=== PATIENT | female | born 1955 | race Caucasian/White ===

== ENCOUNTER 2019-02-22 12:06 | Emergency (ER) | payer MEDICARE, BC, SELFPAY ==
[2019-02-22 12:06] VITALS: BP 145/86; PULSE 81; RESP 18; TEMP 36.6; O2SAT 99; BMI 21.2
[2019-02-22 13:50] LABS: Absolute Lymphocyte Count 1.26 X10^3/uL (0.83-4.51); Absolute Neutrophil Count 3.9 X10^3/uL (2.0-7.7); Basophil# 0.07 X10^3/uL; Basophil% 1.2 % (0-1); Eosinophil# 0.11 X10^3/uL; Eosinophils% 1.9 % (0-5); Hematocrit 36.4 % (37-47); Lymphocyte # 1.26 X10^3/ul (4.0); Lymphocyte % 21.3 % (19-41); Mean Corpuscular Hgb 30.4 pg (27.0-32.0); Mean Corpuscular Volume 92.2 fL (81-99); Mean Platelet Vol. 9.4 fl (6.2-12.0); Monocyte# 0.55 X10^3/uL; Monocyte% 9.3 % (0-10); NRBC Flagged by Analyzer 0 % (0-5); Neutrophil # 3.92 X10^3/uL (2.7-7.7); Neutrophil % 66.1 % (47-70); Platelet Count 278 K/mm3 (150-450); RBC Distribution Width CV 12.9 % (11.6-14.6); RBC Distribution Width SD 43.5 fl (35.1-43.9); Red Blood Count 3.95 M/mm3 (4.2-5.4); White Blood Count 5.9 K/mm3 (4.4-11.0)
[2019-02-22 14:01] LABS: Mucous, Urine 0 SEEN /hpf (<or=2+); Red Blood Cells-Urine 0 SEEN /hpf (0-5); Squamous Epithelial Cells - UA 0 SEEN /hpf (5-10); White Blood Cells 0 SEEN /hpf (0-5)
[2019-02-22 14:03] LABS: Color, Urine Yellow (Yellow); Glucose, Dipstick Normal (Normal); Ketone-Dipstick 15 mg/dl (Negative); Leukocyte Esterase-Dipstick Negative /ul (Negative); Nitrite-Dipstick Negative (Negative); Occult Blood-Urine Negative /ul (Negative); Protein-Dipstick Negative (Negative); Urine Bilirubin Dipstick Negative (Negative); Urine Clarity Sl. Cloudy (Clear); Urine Urobilinogen Normal (Normal)
[2019-02-22 14:04] LABS: Anion Gap 11 (5-15); BUN 14 mg/dL (7-18); BUN/Creat Ratio 18.5 RATIO (10-20); Chloride 106 mmol/L (98-107); Creatinine, Serum 0.76 mg/dL (0.55-1.02); EST Glomerular Filtration Rate 81 mL/min (>60); Est Glom Filt Rate - Afr Amer 98 mL/min (>60); Estimated Creatinine Clearance 55.49 ml/min; Glucose 76 mg/dL (74-106); Potassium 3.4 mmol/L (3.5-5.1); Sodium Level 141 mmol/L (136-145)
[2019-02-22 14:10] LABS: Bacteria RARE /hpf (None Seen)
--- NOTE | 2019-02-22 14:54 | ED.VISSUMM ---
- ER Visit Summary Date of Service: 02/22/19 Chief Complaint: Unable to urinate History of Present Illness: The patient is a [address] Green. She reports that 4 days ago she had a Lotus fundoplication by Dr. Ramires in [place]. She did not receive a catheter during this. She had frequent urination 3 days ago with normal volumes. She denies dysuria. States that she has been unable to urinate since 10:00 this morning. She denies abdominal pain. Physical Examination: Vitals: Stable. Afebrile. General: Well-nourished and well-developed. Head: Normocephalic atraumatic. Neck: Supple, no lymphadenopathy. No JVD. Nontender. Cardiovascular: Regular rate and rhythm. No murmurs. Respiratory: No respiratory distress. Clear to auscultation bilaterally. Abdominal: Soft, nontender, nondistended, normal bowel sounds. No guarding, rebound, or peritoneal signs. Obviously distended bladder. Back: Nontender. Extremities: Nontender, no edema. Skin: Normal color, no rash. Neurologic: Alert and oriented ?3. Cranial nerves II through XII are intact. Normal strength and sensation. Psych: Normal affect. Test Results: CBC shows hematocrit 36.4. Chem-7 shows a potassium 3.4. UA is normal. Emergency Department Course and Treatment: Patient had a Saenz catheter placed and had 2.5 L of urine return. She is resting much more comfortably. Treatment Plan: Patient will be discharged with her catheter in place and a leg bag. Instructed follow-up Dr. Mart in 3 to 5 days for another exam. Return to the emergency department for any worsening symptoms. Disposition: To home in improved and stable condition. Impression: 1. Urinary retention. 2. 4 days status post Lotus fundoplication. This note was generated with [employer]ation software. It may contain incorrect words, spelling, and punctuation that were not noted in review of the chart prior to signing ED Disposition - Plan for ED Patient: Disposition: Home or Assisted Living Instructions: URINARY RETENTION, Female Referrals: Juanjose Mart MD [STAFF PHYSICIAN] - 3-5 Days
[2019-02-22 15:31] VITALS: BP 156/83; PULSE 83; RESP 16; O2SAT 100; O2SAT 99
== END 2019-02-22 15:32 | disposition home or self-care (01) ==
LOC: ED 13:40
PROVIDERS: Emergency Provider Emergency Medicine
DX: R33.9 Retention of urine, unspecified (principal); Z98.890 Other specified postprocedural states; I10 Essential (primary) hypertension; Z79.899 Other long term (current) drug therapy
CPT/HCPCS: 51702; 80048; 81001; 85025; 87086; 99284

== ENCOUNTER → 2019-02-27 11:43 | Outpatient (CLI) | payer MEDICARE, BC, SELFPAY ==
[2019-02-22 12:06] VITALS: BMI 21.2
== END ==
PROVIDERS: Referring Provider Nurse Practitioner Adult Health; Visit Provider Nurse Practitioner Adult Health
DX: R33.9 Retention of urine, unspecified (principal)
CPT/HCPCS: 87077; 87086; 87088; 87186

== ENCOUNTER 2019-03-12 10:15 | Emergency (ER) | payer MEDICARE, BC, SELFPAY ==
[2019-03-12 10:15] VITALS: BP 110/60; PULSE 77; RESP 18; TEMP 36.4; O2SAT 100; BMI 21.6
--- NOTE | 2019-03-12 10:26 | RAD_ITS ---
STUDY: X-RAY CHEST REASON FOR EXAM: Female, 63 years old. Dizziness. TECHNIQUE: Single AP portable view of the chest. COMPARISON: None. FINDINGS: EKG electrodes are seen. The lungs are clear and expanded. There is no demonstrated pleural abnormality. Normal size heart. Normal mediastinum and ashia. Normal visualized pulmonary arteries. Normal visualized aortic arch and descending thoracic aorta. Normal visualized thoracic spine. Normal visualized ribs, clavicles, and shoulders. There is no demonstrated abnormality of the visualized soft tissue structures of the upper abdomen. RAD/Chest 1 View (Portable) IMPRESSION: Normal x-ray examination of the chest. Electronically Signed: Jaiden Shah, at 10:53 EDT , Service support ,
--- NOTE | 2019-03-12 10:26 | EKG12_ITS ---
Test Reason : SYNCOPE Blood Pressure : / mmHG Vent. Rate : 072 BPM Atrial Rate : 072 BPM P-R Int : 180 ms QRS Dur : 082 ms QT Int : 398 ms P-R-T Axes : 070 041 026 degrees QTc Int : 435 ms Normal sinus rhythm Normal ECG Confirmed by HAWK GO ([id number]), sound editor ANICETO DOUGHERTY ([id number]) on 03/18/2019 8:58:14 AM Referred By: Confirmed By:HAWK GO
[2019-03-12 10:40] LABS: Absolute Lymphocyte Count 1.11 X10^3/uL (0.83-4.51); Absolute Neutrophil Count 4.4 X10^3/uL (2.0-7.7); Basophil# 0.06 X10^3/uL; Eosinophil# 0.15 X10^3/uL; Eosinophils% 2.4 % (0-5); Hematocrit 33.8 % (37-47); Hemoglobin 11.5 g/dL (12.0-15.0); Lymphocyte # 1.11 X10^3/ul (4.0); Mean Corpuscular Volume 91.1 fL (81-99); Mean Platelet Vol. 9.2 fl (6.2-12.0); Monocyte# 0.44 X10^3/uL; Monocyte% 7.2 % (0-10); NRBC Flagged by Analyzer 0 % (0-5); Neutrophil # 4.37 X10^3/uL (2.7-7.7); Neutrophil % 71.1 % (47-70); Platelet Count 332 K/mm3 (150-450); RBC Distribution Width CV 12.7 % (11.6-14.6); RBC Distribution Width SD 42.2 fl (35.1-43.9); Red Blood Count 3.71 M/mm3 (4.2-5.4); White Blood Count 6.2 K/mm3 (4.4-11.0)
[2019-03-12 10:46] VITALS: O2SAT 95
[2019-03-12] MEDS: 0.9% Normal Saline 1,000 ML 1000 ML IV (10:47)
[2019-03-12] MEDS: Aspirin 81 MG TAB.CHEW 324 MG PO (10:47)
[2019-03-12 10:56] LABS: D-Dimer Quantitative (DVT/PE) 0.92 FEU/ug/m (0.27-0.49)
--- NOTE | 2019-03-12 11:00 | CT_ITS ---
STUDY: CTA CHEST REASON FOR EXAM: Female, 63 years old. Dizziness. Syncope. Recent surgery. RADIATION DOSAGE (If Supplied By Facility): CTDIvol = ( 2.95 ) mGy, DLP = ( 103.15 ) mGycm TECHNIQUE: The examination was performed with the intravenous administration of IV 75mL [id number]-370 75. Post-processing of the angiographic images was performed, with multiplanar reformation and 3D reconstruction. Individualized dose optimization techniques were used for this CT. COMPARISON: March 12 2019. FINDINGS: HEART: Coronary artery disease. Normal heart size. Trace fluid within the pericardial sleeve. AORTA/GREAT VESSELS: Vascular calcifications. No aneurysm. No dissection. Adequate contrast enhancement. PULMONARY ARTERIES: Adequate contrast enhancement. No hypertension. No pulmonary embolism. LUNGS/AIRWAYS: No focal patchy airspace opacities. No suspicious lung nodules. Minimal scar/atelectasis. No lung mass. Central airways patent. Increased AP diameter suggests element of COPD. PLEURA: No pneumothorax. No pleural effusion. MEDIASTINUM/THYROID: Normal thyroid. No pathologically enlarged lymph nodes. No pneumomediastinum. SOFT TISSUES: Minimal body wall edema. No acute process. OSSEOUS STRUCTURES: Mild degenerative changes. No acute process. UPPER ABDOMEN/ESOPHAGUS: Hiatal hernia. Calcification/post surgical changes at the stomach. Hepatic steatosis. No acute process. CT/CTA Chest W/WO Contrast IMPRESSION: No pulmonary embolism, aortic aneurysm or aortic dissection No pneumonia, pleural effusion or pneumothorax Mild COPD/hyperexpansion Electronically Signed: Sd Valenzuela DO at 12:01 EDT Tel , Service support ,
[2019-03-12 11:01] LABS: Anion Gap 8 (5-15); BUN 7 mg/dL (7-18); BUN/Creat Ratio 6.6 RATIO (10-20); Calcium,Total 8.9 mg/dL (8.5-10.1); Chloride 101 mmol/L (98-107); Creatinine, Serum 1.06 mg/dL (0.55-1.02); EST Glomerular Filtration Rate 55 mL/min (>60); Est Glom Filt Rate - Afr Amer 67 mL/min (>60); Glucose 93 mg/dL (74-106); Potassium 3.9 mmol/L (3.5-5.1); Sodium Level 135 mmol/L (136-145)
[2019-03-12 11:15] VITALS: BP 104/62; PULSE 76; RESP 24; O2SAT 100
[2019-03-12 12:00] VITALS: BP 103/67; PULSE 74; RESP 17; O2SAT 100
--- NOTE | 2019-03-12 12:42 | ED.VIS.GEN ---
History of Present Illness Chief Complaint: Syncope Past Medical History - Allergies and Home Meds Allergies/Adverse Reactions: Allergies Penicillins [PCN] Allergy (Verified 03/12/19 10:18) Rash Primary Care Physician: True Green MD [Primary Care Provider] - Smoking Status: Never smoker Physical Exam Vital Signs/Narrative: Vital Signs Temp Pulse Resp BP Pulse Ox 03/12/19 12:00 74 17 103/67 100 03/12/19 11:15 76 24 H 104/62 100 03/12/19 10:46 95 03/12/19 10:15 97.6 F L 77 18 110/60 100 Diagnostic/Tx/Re-eval - Rhythm Strip Rhythm Strip: Sinus Rhythm Rate: 72 Ectopy: None - EKG Initial EKG Interpretation: Sinus Rhythm, No Acute Injury Pattern, - - KS interval. Normal QTC. Interpreted by emergency doctor - Medical Decision Making Patient is a normal work-up including PE study. She appears well, she has had decreased p.o. intake recently she had slightly dry mucous membranes. I hydrated her she improved I will discharge in stable condition. ED Disposition - Plan for ED Patient: Disposition: Home or Assisted Living Diagnosis: Dehydration, Syncope Instructions: SYNCOPE, Unk Cause, Dehydration Referrals: True Green MD [Primary Care Provider] -
[2019-03-12 13:24] VITALS: BP 109/64; PULSE 79; PULSE 82; RESP 16; O2SAT 100
--- NOTE | 2019-03-12 13:25 | ED.RN ---
REVIEWED D/C INSTRUCTIONS, FOLLOW UP CARE, AND S/S THAT WOULD WARRANT A RETURN TO THE ED WITH PT. PT VERBALIZED AN UNDERSTANDING AND DENIES FURTHER QUESTIONS FOR THIS RN. PT SKIN P/W/D, RESP EVEN AND UNLABORED, PT A&O X 3, NO DISTRESS NOTED. PT AMBULATED OUT OF ED, GAIT STEADY.
== END 2019-03-12 13:26 | disposition home or self-care (01) ==
PROVIDERS: Emergency Provider Emergency Medicine
DX: E86.0 Dehydration (principal); R55 Syncope and collapse
CPT/HCPCS: 71045; 71275; 80048; 84484; 85025; 85379; 93005; 96360; 99285; J7030; Q9967

== ENCOUNTER → 2020-09-07 15:16 | Outpatient (CLI) | payer MEDICARE, BC, SELFPAY ==
--- NOTE | 2020-09-07 15:20 | RAD_ITS ---
STUDY: X-RAY - PELVIS AND BILATERAL HIPS REASON FOR EXAM: Female, 65 years old. Hip pain. TECHNIQUE: AP view of the pelvis.? 2 views of the right hip, and 2 views of the left hip were obtained. COMPARISON: None. FINDINGS: There is a non-specific bowel gas pattern. Phleboliths. Generalized osteopenia. Normal bilateral iliac wings, sacroiliac joints and visualized sacrum. Normal bilateral superior and inferior pubic rami. Normal pubic symphysis. Normal bilateral ischial tuberosities. Mild arthrosis of both hips. RAD/Hips B/L min 2 views w/ Pelvis IMPRESSION: Osteopenia with mild arthrosis of both hips. Electronically Signed: Cachorro Fisher MD at 12:04 EDT , Service support ,
== END ==
PROVIDERS: PCP Family Medicine; Referring Provider Family Medicine; Visit Provider Family Medicine
DX: M16.0 Bilateral primary osteoarthritis of hip (principal); M85.89 Other specified disorders of bone density and structure, multiple sites
CPT/HCPCS: 73521

== ENCOUNTER → 2020-09-08 08:20 | Outpatient (CLI) | payer MEDICARE, BC, SELFPAY ==
[2020-09-08 10:31] LABS: Vitamin D,25 Hydroxy 11.2 ng/mL
[2020-09-08 10:53] LABS: Anion Gap 7 (5-15); BUN 17 mg/dL (7-18); BUN/Creat Ratio 16.5 RATIO (10-20); Calcium,Total 9.1 mg/dL (8.5-10.1); Chloride 112 mmol/L (98-107); Cholesterol 243 mg/dL (200); Creatinine, Serum 1.03 mg/dL (0.55-1.02); EST Glomerular Filtration Rate 57 mL/min (>60); Est Glom Filt Rate - Afr Amer 69 mL/min (>60); Glucose 88 mg/dL (74-106); High Density Lipoprotein 85 mg/dL; Potassium 3.9 mmol/L (3.5-5.1); Sodium Level 143 mmol/L (136-145); Triglycerides 91 mg/dL; Very Low Density Lipoprotein 18 mg/dL (5-40)
== END ==
PROVIDERS: PCP Family Medicine; Referring Provider Family Medicine; Visit Provider Family Medicine
DX: I10 Essential (primary) hypertension (principal); Z86.39 Personal history of other endocrine, nutritional and metabolic disease
CPT/HCPCS: 36415; 80048; 80061; 82306

== ENCOUNTER → 2021-03-04 | Outpatient (CLI) | payer MEDICARE, BC, SELFPAY | END | disposition home or self-care (01) | PROVIDERS: PCP Family Medicine; Referring Provider Family Medicine; Visit Provider Family Medicine | DX: Z20.822 Contact with and (suspected) exposure to COVID-19 (principal) | CPT/HCPCS: 87635; U0005; U0003 ==

== ENCOUNTER → 2021-09-28 | Outpatient (CLI) | payer MEDICARE, BC, SELFPAY ==
[2021-09-28 10:12] LABS: Vitamin D,25 Hydroxy 38.4 ng/mL
[2021-09-28 10:15] LABS: Anion Gap 5 (5-15); BUN 20 mg/dL (7-18); Calcium,Total 9.4 mg/dL (8.5-10.1); Chloride 107 mmol/L (98-107); Cholesterol 243 mg/dL (200); Creatinine, Serum 1.11 mg/dL (0.55-1.02); EST Glomerular Filtration Rate 52 mL/min (>60); Est Glom Filt Rate - Afr Amer 63 mL/min (>60); Glucose 94 mg/dL (74-106); High Density Lipoprotein 83 mg/dL; Potassium 3.4 mmol/L (3.5-5.1); Sodium Level 140 mmol/L (136-145); Triglycerides 88 mg/dL; Very Low Density Lipoprotein 18 mg/dL (5-40)
== END | disposition home or self-care (01) ==
LOC: MFPLAB 08:04
PROVIDERS: PCP Family Medicine; Visit Provider Family Medicine
DX: I10 Essential (primary) hypertension (principal); E55.9 Vitamin D deficiency, unspecified
CPT/HCPCS: 36415; 80048; 80061; 82306

== ENCOUNTER → 2021-10-26 | Outpatient (CLI) | payer MEDICARE, BC, SELFPAY ==
--- NOTE | 2021-10-26 14:00 | BI_ITS ---
MAMMOGRAPHY - BILATERAL SCREENING REASON FOR EXAM: Female, 66 years old. Routine annual screening examination. PERTINENT HISTORY: Sister with breast cancer. TECHNIQUE: Digital bilateral breast brandt (3D mammographic acquisition) in the CC and MLO projections. 2-D mediolateral oblique (MLO) and craniocaudad (CC) views of both breasts were obtained. CAD: Full Field Digital Mammography with Computer Added Detection was performed. COMPARISON: Comparison is made with prior examination dated 02/09/2018. FINDINGS: Breast Composition: The breasts are heterogeneously dense, which may obscure small masses. There are no dominant masses or suspicious calcifications. No other significant abnormalities are identified. There has been no significant change since the prior study. BI/SCRN MAMM (CAD)W/BRANDT BILAT IMPRESSION: Stable bilateral screening mammogram. Yearly follow-up mammogram recommended. (A) ASSESSMENT CATEGORY: BIRADS Category 1: Negative. A letter regarding these results will be sent to the patient by the facility within 30 days. Approximately 10% of breast cancers are not detected by mammography. A normal mammogram should not delay biopsy of a clinically suspicious abnormality. [id number] Electronically Signed: Jaiden Shah MD at 15:10 EDT ,
--- NOTE | 2021-10-26 14:16 | BD_ITS ---
STUDY: DUAL ENERGY X-RAY ABSORPTIOMETRY / DXA REASON FOR EXAM: Female, 66 years old. Z780. Patient is postmenopausal. TECHNIQUE: Bone Mineral Density (BMD) measurements of lumbar spine and bilateral hips were obtained. COMPARISON: None. FINDINGS: Lumbar Spine (L1-L4): g/cm2 (0.903) / T-score (-1.3) / Z-score (0.7) Findings are suggestive of osteopenia with a low fracture risk. Left Femur Total: g/cm2 (0.807) / T-score (-1.1) / Z-score (0.3) Left Femoral Neck: g/cm2 (0.625) / T-score (-2.0) / Z-score (-0.3) Right Femur Total: g/cm2 (0.813) / T-score (-1.1) / Z-score (0.3) Right Femoral Neck: g/cm2 (0.660) / T-score (-1.7) / Z-score (0.0) BD/Dexa Bone Density Study IMPRESSION: The patient is considered osteopenic as outlined below according to World Martinez Organization (WHO) criteria with a moderate fracture risk. Reference Information: The T-score is the number of standard deviations above or below the standard which is normal for young adults at their peak bone mineral density. The World Health Organization (WHO) interprets the T-scores as follows: Above -1 Normal bone density Between -1 and -2.5 Osteopenia Equal to / or below -2.5 Osteoporosis As a practical clinical guideline, osteopenia may be graded as follows: Mild -1 through -1.5 Moderate -1.6 through -2.0 Severe -2.1 through -2.4 The Z-score is the number of standard deviations above or below age-matched controls. A Z-score of less than -1.5 would be considered abnormal. References: 1. NIH Osteoporosis and Related Bone Diseases www osteo.org 2. International Society for Clinical Densitometry www iscd.org 3. National Osteoporosis Foundation www nof.org Electronically Signed: Jaiden Shha MD at 15:30 EDT ,
== END | disposition home or self-care (01) ==
LOC: OPBD 13:57
PROVIDERS: PCP Family Medicine; Referring Provider Family Medicine; Visit Provider Family Medicine
DX: Z13.820 Encounter for screening for osteoporosis (principal); Z78.0 Asymptomatic menopausal state; Z12.31 Encounter for screening mammogram for malignant neoplasm of breast; Z80.3 Family history of malignant neoplasm of breast
CPT/HCPCS: 77063; 77067; 77080

== ENCOUNTER → 2022-03-25 | Outpatient (CLI) | payer MEDICARE, BC, SELFPAY ==
[2022-03-25 10:18] LABS: Anion Gap 5 (5-15); BUN 21 mg/dL (7-18); BUN/Creat Ratio 20.8 RATIO (10-20); Chloride 110 mmol/L (98-107); Cholesterol 155 mg/dL (200); Creatinine, Serum 1.01 mg/dL (0.55-1.02); EST Glomerular Filtration Rate 58 mL/min (>60); Est Glom Filt Rate - Afr Amer 70 mL/min (>60); Glucose 87 mg/dL (74-106); High Density Lipoprotein 83 mg/dL; Potassium 3.7 mmol/L (3.5-5.1); Sodium Level 142 mmol/L (136-145); Triglycerides 58 mg/dL; Very Low Density Lipoprotein 12 mg/dL (5-40)
== END | disposition home or self-care (01) ==
LOC: MFPLAB 08:13
PROVIDERS: PCP Family Medicine; Referring Provider Family Medicine; Visit Provider Family Medicine
DX: I10 Essential (primary) hypertension (principal)
CPT/HCPCS: 36415; 80048; 80061

== ENCOUNTER → 2022-10-06 | Outpatient (CLI) | payer MEDICARE, BC, SELFPAY ==
[2022-10-06 10:29] LABS: Anion Gap 4 (5-15); BUN 19 mg/dL (7-18); BUN/Creat Ratio 19.5 RATIO (10-20); Calcium,Total 9.5 mg/dL (8.5-10.1); Chloride 108 mmol/L (98-107); Cholesterol 186 mg/dL (200); Creatinine, Serum 0.97 mg/dL (0.55-1.02); EST Glomerular Filtration Rate 60 mL/min (>60); Est Glom Filt Rate - Afr Amer 73 mL/min (>60); Glucose 91 mg/dL (74-106); High Density Lipoprotein 93 mg/dL; Potassium 3.6 mmol/L (3.5-5.1); Sodium Level 141 mmol/L (136-145); Triglycerides 86 mg/dL; Very Low Density Lipoprotein 17 mg/dL (5-40)
== END | disposition home or self-care (01) ==
LOC: MFPLAB 08:06
PROVIDERS: PCP Family Medicine; Visit Provider Family Medicine
DX: Z00.00 Encounter for general adult medical examination without abnormal findings (principal); E55.9 Vitamin D deficiency, unspecified
CPT/HCPCS: 36415; 80048; 80061; 82306

== ENCOUNTER 2022-11-09 06:43 | Day surgery (SDC) | payer MEDICARE, BC, SELFPAY ==
--- NOTE | 2022-11-09 07:20 | HP.PCM_ITS ---
[facility] - General General Date of Service: 11/09/22 HPI Narrative FRANK LUONG, is a 67 F who presents for screening colonoscopy. Patient never had previous colonoscopy. Patient denies any family history of colon cancer. Patient has bowel movements daily denies any blood. Patient denies any chronic abdominal pain/nausea/vomiting/reflux. [facility] Medical History (Updated 11/04/22 @ 14:33 by Lesly Castellanos) Arthritis Asthma Blackout Easy bruising History of hiatal hernia History of pain when walking History of stress test HTN (hypertension) Hyperlipidemia Low iron Migraine Non-smoker Post-menopausal Vitamin D deficiency Wears dentures Wears glasses Home Medications Losartan/Hydrochlorothiazide [Hyzaar 50-12.5 Tablet] 1 tab PO DAILY 10/04/14 [History Last Taken Unknown] budesonide-formoterol HFA 80 mcg-4.5 mcg/actuation aerosol inhaler (Symbicort) 2 puff inhalation BID PRN PRN Sob &/Or Wheezing 10/04/14 [History Last Taken Unknown] topiramate 50 mg tablet 100 mg PO QHS 03/12/19 [History Last Taken Unknown] cholecalciferol (vitamin D3) 50 mcg (2,000 unit) capsule 50 mcg PO BID 10/26/22 [History Last Taken Unknown] rosuvastatin 5 mg tablet 5 mg PO DAILY 10/26/22 [History Last Taken Unknown] Allergy/AdvReac Type Severity Reaction Status Date / Time Penicillins [PCN] Allergy Rash Verified 11/04/22 14:25 Family History (Updated 10/26/22 @ 10:47 by Marva Archuleta) Father Cancer Sister Hypertension Cancer Diabetes Surgical History (Updated 11/04/22 @ 14:33 by Lesly Castellanos) History of Lotus fundoplication Hx of esophagogastroduodenoscopy Social History (Updated 10/26/22 @ 10:48 by Marva Archuleta) household members: spouse current occupational status: retired Smoking Status: Never smoker alcohol intake: never Past Medical/Surgical History Planned Operation Planned Operative Procedure/s: CSCOPE OA Previous Hospitalizations/Surgeries HX Hospitalizations: No Any Problems With Anesthesia: No You/Your Family Experience Fever (Hyperthermia) With Anes: No Cholinesterase deficiency: No Cardiovascular Hx Heart Attack: No Hx Hypertension: Yes (CONTROLLED WITH MED) Respiratory Hx Chronic Obstructive Pulmonary Disease (COPD): No Hx Asthma: Yes Hx Sleep Apnea: No Hx Respiratory Tract Infection/Cold (presently): No Do You Snore Loudly (louder than talking or can be heard): No Do You Often Feel Tired/ Fatigued/ Sleepy Dring Daytime?: No Has Anyone Observed You Stop Breathing During Sleep?: No Result (for STOP score): Negative Smoking Status: Never smoker Neurological Hx Seizures: No Does patient have nerve stimulator: No Blood Disorder Hx High Cholesterol: Yes Reproduction : No Endocrine Hx Diabetes: No Allergies Penicillins [PCN] Allergy (Verified 11/04/22 14:25) Rash Discharge Is Pt Admitted From a Fdc, or a Longterm: No After D/C, Where Do you Plan to Go: Return Home Physical Exam Const alert, oriented x3 and no apparent distress HEENT normocephalic and head/scalp atraumatic Resp normal respiratory effort Cardio regular rate GI soft to palpation and non-tender; Negative for non-distended Palpation: Negative for guarding Extremity no clubbing, cyanosis or edema Neuro CN's II-XII intact bilaterally Psych mental status grossly normal Assessment & Plan Assessment/Plan (1) Encounter for screening for malignant neoplasm of colon: Surgery Risks - Colonoscopy I discussed with the patient the risks of the procedure: Yes Risks Include but are not Limited To: Risks include but are not limited to: Bleeding, perforation requiring further surgery, inability to complete colonoscopy requiring barium enema.
[2022-11-09 08:43] VITALS: BP 100/52; BP 141/67; PULSE 74; RESP 16; TEMP 36.7; O2SAT 98
[2022-11-09 08:45] VITALS: BP 141/67; BP 92/64; PULSE 75; RESP 16; O2SAT 98
--- NOTE | 2022-11-09 08:46 | OP.COLON_ITS ---
Patient Name: Maria Elena Alan Procedure Date: 11/09/2022 8:02 AM Date of : 1955 Age: 67 Procedure: Colonoscopy Indications: Screening for colorectal malignant neoplasm Providers: Yuliya Medina MD Medicines: Monitored Anesthesia Care Patient Profile: This is a 67 year old female. Last Colonoscopy: none. The patient's first colonoscopy is today. Complications: No immediate complications. Procedure: Pre-Anesthesia Assessment: - Prior to the procedure, a History and Physical was performed, and patient medications and allergies were reviewed. The patient's tolerance of previous anesthesia was also reviewed. The risks and benefits of the procedure and the sedation options and risks were discussed with the patient. All questions were answered, and informed consent was obtained. Prior Anticoagulants: The patient has taken no previous anticoagulant or antiplatelet agents. ASA Grade Assessment: Per anesthesia. After reviewing the risks and benefits, the patient was deemed in satisfactory condition to undergo the procedure. After I obtained informed consent, the scope was passed under direct vision. Throughout the procedure, the patient's blood pressure, pulse, and oxygen saturations were monitored continuously. The pediatric colonoscope was introduced through the anus and advanced to the cecum, identified by the appendiceal orifice, ileocecal valve and palpation. The colonoscopy was technically difficult and complex due to a tortuous colon. The patient tolerated the procedure well. The quality of the bowel preparation was good. Scope In: 8:14:05 AM Scope Withdrawal Time 0 hours 8 minutes 57 seconds Scope Out: 8:37:00 AM Total Procedure Duration Time 0 hours 22 minutes 55 seconds Findings: The perianal and digital rectal examinations were normal. Multiple small-mouthed diverticula were found in the sigmoid colon. The exam was otherwise without abnormality on direct and retroflexion views. Impression: - Diverticulosis in the sigmoid colon. - The examination was otherwise normal on direct and retroflexion views. - No specimens collected. Recommendation: - Discharge patient to home. - High fiber diet. - Continue present medications. - Repeat colonoscopy in 10 years for screening purposes. Procedure Code(s): --- Professional --- G0121, PT, Colorectal cancer screening; colonoscopy on individual not meeting criteria for high risk Diagnosis Code(s): --- Professional --- Z12.11, Encounter for screening for malignant neoplasm of colon K57.30, Diverticulosis of large intestine without perforation or abscess without bleeding CPT copyright 2017 [employer]. All rights reserved. The codes documented in this report are preliminary and upon medical records coder review may be revised to meet current compliance requirements. MD Yuliya Bledsoe MD 11/09/2022 8:46:16 AM This report has been signed electronically. Number of Addenda: 0 Note Initiated On: 11/09/2022 8:02 AM
--- NOTE | 2022-11-09 08:47 | OP.CCLET_ITS ---
11/09/2022 Christiano Macedo MD [address] [id number] Re : Colonoscopy procedure for Maria Elena Alan Dear Dr. Macedo This procedure was performed on Wednesday, November 09, 2022. My impressions and recommendations are as follows: Impressions : - Diverticulosis in the sigmoid colon. - The examination was otherwise normal on direct and retroflexion views. - No specimens collected. Recommendations : - Discharge patient to home. - High fiber diet. - Continue present medications. - Repeat colonoscopy in 10 years for screening purposes. My findings are described in the full procedure note, which is enclosed. If I can be of further assistance, please feel free to contact me at Doctor phone number(s): , Work: . Sincerely, MD Yuliya Bledsoe MD 11/09/2022 8:46:16 AM This report has been signed electronically.
[2022-11-09 08:50] VITALS: BP 100/64; BP 141/67; PULSE 757; RESP 16; O2SAT 99
[2022-11-09 08:55] VITALS: BP 101/60; BP 141/67; PULSE 80; RESP 16; O2SAT 98
[2022-11-09 09:01] VITALS: BP 104/70; BP 141/67; PULSE 81; RESP 16; TEMP 36.7; O2SAT 97
[2022-11-09 09:11] VITALS: BP 141/67
== END 2022-11-09 09:24 | disposition home or self-care (01) ==
LOC: EN 07:32 → AC 07:36
PROVIDERS: PCP Family Medicine; Referring Provider Family Medicine; Visit Provider Surgery
PROC: 0DJD8ZZ Inspection of Lower Intestinal Tract, Via Natural or Artificial Opening Endoscopic (ICD-10-PCS; CPT 45378; principal; 2022-11-09 08:10)
DX: Z12.11 Encounter for screening for malignant neoplasm of colon (principal); K57.30 Diverticulosis of large intestine without perforation or abscess without bleeding; I10 Essential (primary) hypertension; E78.5 Hyperlipidemia, unspecified; E55.9 Vitamin D deficiency, unspecified; Z79.899 Other long term (current) drug therapy
CPT/HCPCS: G0121; J7120; J2405

== ENCOUNTER → 2023-03-24 | Outpatient (CLI) | payer MEDICARE, OTHER, SELFPAY ==
--- NOTE | 2023-03-24 14:18 | RAD_ITS ---
STUDY: X-RAY - PELVIS AND RIGHT HIP REASON FOR EXAM: Female, 67 years old. PAIN TECHNIQUE: 3 views of the pelvis and hip. COMPARISON: 09/07/2020 FINDINGS: There is a non-specific bowel gas pattern. Normal visualized soft tissue structures. Normal bilateral iliac wings, sacroiliac joints and visualized sacrum. Normal bilateral superior and inferior pubic rami. Normal pubic symphysis. Normal bilateral ischial tuberosities. Normal visualized femoral head. Normal acetabulum. Normal hip joint. RAD/HIP, UNI W/ Pelvis 2-3 Views IMPRESSION: Normal x-ray examination of the pelvis and hip. Electronically Signed: Braydon Wong MD at 23:59 EST ,
[2023-03-24 15:41] LABS: Anion Gap 2 (5-15); BUN 17 mg/dL (7-18); BUN/Creat Ratio 16.2 RATIO (10-20); Calcium,Total 9.2 mg/dL (8.5-10.1); Chloride 102 mmol/L (98-107); Cholesterol 189 mg/dL (200); Creatinine, Serum 1.05 mg/dL (0.55-1.02); EST Glomerular Filtration Rate 55 mL/min (>60); Est Glom Filt Rate - Afr Amer 67 mL/min (>60); Glucose 121 mg/dL (74-106); High Density Lipoprotein 94 mg/dL; Potassium 2.9 mmol/L (3.5-5.1); Sodium Level 134 mmol/L (136-145); Triglycerides 80 mg/dL; Very Low Density Lipoprotein 16 mg/dL (5-40)
== END | disposition home or self-care (01) ==
LOC: MTLAB 14:16
PROVIDERS: PCP Family Medicine; Referring Provider Family Medicine; Visit Provider Family Medicine
DX: M25.551 Pain in right hip (principal); E78.5 Hyperlipidemia, unspecified
CPT/HCPCS: 36415; 73502; 80048; 80061

== ENCOUNTER → 2023-05-01 | Outpatient (CLI) | payer MEDICARE, OTHER, SELFPAY ==
[2023-05-01 12:41] LABS: Anion Gap 8 (5-15); BUN 18 mg/dL (7-18); BUN/Creat Ratio 17.5 RATIO (10-20); Calcium,Total 8.9 mg/dL (8.5-10.1); Chloride 105 mmol/L (98-107); Creatinine, Serum 1.03 mg/dL (0.55-1.02); EST Glomerular Filtration Rate 56 mL/min (>60); Est Glom Filt Rate - Afr Amer 68 mL/min (>60); Glucose 96 mg/dL (74-106); Potassium 3.8 mmol/L (3.5-5.1); Sodium Level 140 mmol/L (136-145)
== END | disposition home or self-care (01) ==
LOC: MFPLAB 10:24
PROVIDERS: PCP Family Medicine; Visit Provider Family Medicine
DX: E78.5 Hyperlipidemia, unspecified (principal)
CPT/HCPCS: 36415; 80048

== ENCOUNTER → 2023-10-11 | Outpatient (CLI) | payer MEDICARE, OTHER, SELFPAY ==
[2023-10-11 10:48] LABS: Anion Gap 4 (5-15); BUN 17 mg/dL (7-18); Calcium,Total 9.4 mg/dL (8.5-10.1); Chloride 105 mmol/L (98-107); Cholesterol 194 mg/dL (200); EST Glomerular Filtration Rate 58 mL/min (>60); Est Glom Filt Rate - Afr Amer 71 mL/min (>60); Glucose 98 mg/dL (74-106); High Density Lipoprotein 89 mg/dL; Potassium 3.8 mmol/L (3.5-5.1); Sodium Level 137 mmol/L (136-145); Triglycerides 82 mg/dL; Very Low Density Lipoprotein 16 mg/dL (5-40)
== END | disposition home or self-care (01) ==
LOC: MFPLAB 08:11
PROVIDERS: PCP Family Medicine; Visit Provider Family Medicine
DX: Z00.00 Encounter for general adult medical examination without abnormal findings (principal)
CPT/HCPCS: 36415; 80048; 80061

== ENCOUNTER → 2024-01-29 | Outpatient (CLI) | payer MEDICARE, OTHER, SELFPAY ==
--- NOTE | 2024-01-29 07:39 | RAD_ITS ---
STUDY: X-RAY - ESOPHAGUS (BARIUM SWALLOW) WITH FLUOROSCOPY REASON FOR EXAM: Female, 68 years old. GERD, DYSPHAGIA *12MM TAB. The patient is status post Lotus fundoplication. TECHNIQUE: 32 fluoroscopic view(s) of the esophagus were obtained following swallowing of barium. FLUOROSCOPY TIME (if supplied): (23 seconds) minutes/seconds. 1.4 mGy. COMPARISON: None. FINDINGS: There is no demonstrated esophageal foreign body. There is no demonstrated stricture or mucosal abnormality. Normal gastroesophageal junction, without a demonstrated hiatal hernia. Evidence of prior Lotus fundoplication. The patient ingested a 12 mm tablet of barium without any difficulty. Normal visualized aortic arch and descending thoracic aorta. Normal visualized pulmonary parenchyma. Normal visualized osseous structures of the thorax. RAD/Esophagus Dual Contrast IMPRESSION: Status post Lotus fundoplication. The patient ingested a 12 mm tablet of barium without any difficulty. No gastroesophageal reflux is seen. Electronically Signed: Jaiden Shah MD at 15:11 EDT ,
== END | disposition home or self-care (01) ==
LOC: RAD 07:37
PROVIDERS: PCP Family Medicine; Referring Provider Internal Medicine Gastroenterology; Visit Provider Internal Medicine Gastroenterology
DX: K21.9 Gastro-esophageal reflux disease without esophagitis (principal); R13.10 Dysphagia, unspecified
CPT/HCPCS: 74221

== ENCOUNTER → 2024-07-08 | Outpatient (CLI) | payer MEDICARE, OTHER, SELFPAY ==
[2024-07-09 20:08] LABS: H. PYLORI STOOL AG Positive (Negative)
== END | disposition home or self-care (01) ==
PROVIDERS: PCP Family Medicine; Referring Provider Internal Medicine Gastroenterology; Visit Provider Internal Medicine Gastroenterology
DX: K29.70 Gastritis, unspecified, without bleeding (principal)
CPT/HCPCS: 87338

== ENCOUNTER → 2024-10-10 | Outpatient (CLI) | payer MEDICARE, OTHER, SELFPAY ==
[2024-10-10 11:05] LABS: Anion Gap 12 (5-15); BUN 14 mg/dL (4-19); BUN/Creat Ratio 15.1 RATIO (10-20); Calcium,Total 9.5 mg/dL (7.6-11.0); Carbon Dioxide 22.7 mmol/L (21.0-32.0); Chloride 107 mmol/L (98-108); Cholesterol 220 mg/dL (<=200); Creatinine, Serum 0.92 mg/dL (0.70-1.20); EST Glomerular Filtration Rate 67 (>60); Glucose 96 mg/dL (70-99); High Density Lipoprotein 91 mg/dL; Low Density Lipoprotein Calc. 114 mg/dL; Potassium 4.2 mmol/L (3.3-5.1); Sodium Level 141 mmol/L (133-145); Triglycerides 75 mg/dL; Very Low Density Lipoprotein 15 mg/dL (5-40); cholesterol:hdl ratio screen 2.43
== END | disposition home or self-care (01) ==
LOC: MFPLAB 09:11
PROVIDERS: PCP Family Medicine; Referring Provider Family Medicine; Visit Provider Family Medicine
DX: Z00.00 Encounter for general adult medical examination without abnormal findings (principal)
CPT/HCPCS: 36415; 80048; 80061

== ENCOUNTER → 2024-11-07 | Outpatient (CLI) | payer MEDICARE, OTHER, SELFPAY ==
--- NOTE | 2024-11-07 14:50 | BD_ITS ---
PROCEDURE: DEXA BONE DENSITY STUDY 11/07/2024 REASON FOR EXAM: F, age 69 y/o . Postmenopausal. TECHNIQUE: DEXA BONE DENSITY STUDY COMPARISON: Prior study dated October 26, 2021. FINDINGS: BMD and T-SCORES Lumbar spine: 0.895 g/cm2, T-score -1.4 Levels: L1 through L4 Change from prior: Loss of 0.8%. Left femoral neck: 0.646 g/cm2, T-score -1.8 Femoral neck comparison data not recommended for monitoring change. Left total hip: 0.796 g/cm2, T-score -1.2 Change from prior: Loss of 1.4%. Right femoral neck: 0.621 g/cm2, T-score -2.1 Femoral neck comparison data not recommended for monitoring change. Right total hip: 0.784 g/cm2, T-score -1.3 Change from prior: Loss of 3.6%. The World Health Organization has defined the following categories based on bone density: Normal bone density: T-score equal to or greater than -1.0 Osteopenia: T-score between -1.0 and -2.5 Osteoporosis: T-score equal to or less than -2.5 The patient does meet the pharmacological treatment recommendations for prevention of osteoporosis. BD/Dexa Bone Density Study IMPRESSION: OSTEOPENIA. Recommend follow-up as clinically warranted. Reading Location: [id number]
--- NOTE | 2024-11-07 14:50 | BI_ITS ---
EXAM: SCRN MAMM (CAD)W/BRANDT BILAT DATE: 11/07/2024 CLINICAL HISTORY: F, Age 69 y/o , SCREENING Sister with breast cancer. TECHNIQUE: SCRN MAMM (CAD)W/BRANDT BILAT COMPARISON: Prior exam(s) dated October 26, 2021.. FINDINGS: TISSUE DENSITY: The breasts are heterogeneously dense, which may obscure small masses. Bilateral Breast Mammographic Findings: No significant masses, calcifications or other abnormalities are identified. There is retraction of the right areolar complex. Correlation with ultrasound is recommended. BI/SCRN MAMM (CAD)W/BRANDT BILAT IMPRESSION: Retraction of the right areolar complex. Correlation with ultrasound recommend ed. OVERALL FINAL ASSESSMENT BI-RADS 0: INCOMPLETE - NEED ADDITIONAL IMAGING EVALUATION. RECOMMENDATION: Ultrasound Recommended A letter with findings and recommendations will be mailed to the patient. Reading Location: [id number]
== END | disposition home or self-care (01) ==
LOC: OPBD 14:48
PROVIDERS: PCP Family Medicine; Referring Provider Family Medicine; Visit Provider Family Medicine
DX: Z12.31 Encounter for screening mammogram for malignant neoplasm of breast (principal); Z78.0 Asymptomatic menopausal state
CPT/HCPCS: 77063; 77067; 77080

== ENCOUNTER → 2024-11-14 | Outpatient (CLI) | payer MEDICARE, OTHER, SELFPAY ==
--- NOTE | 2024-11-14 08:18 | US_ITS ---
PROCEDURE: BREAST LIMITED UNILATERAL 11/14/2024 REASON FOR EXAM: 69-year-old female presents for right nipple retraction seen on the examination of 11/07/2024. Family history of breast cancer in sister in her 40s and a niece in her 30s. COMPARISON: Mammograms 11/07/2024 and 10/26/2021. TECHNIQUE: BREAST LIMITED UNILATERAL FINDINGS: Ultrasound performed of the retroareolar right breast demonstrates no suspicious sonographic findings. There is normal breast tissue. There is no solid mass or abnormal cystic elements in the retroareolar region. US/Breast Limited Unilateral IMPRESSION: There are no suspicious sonographic findings to account for the patient's right nipple retraction. Clinical management is recommended. BI-RADS 1: NEGATIVE. RECOMMEND ANNUAL MAMMOGRAPHIC SCREENING. RECOMMENDATION: Routine annual follow-up in 1 Year. Clinical management is rec ommended. Reading Location: [id number]
--- NOTE | 2024-11-14 08:18 | US_ITS ---
PROCEDURE: BREAST LIMITED UNILATERAL 11/14/2024 REASON FOR EXAM: 69-year-old female presents for right nipple retraction seen on the examination of 11/07/2024. Family history of breast cancer in sister in her 40s and a niece in her 30s. COMPARISON: Mammograms 11/07/2024 and 10/26/2021. TECHNIQUE: BREAST LIMITED UNILATERAL FINDINGS: Ultrasound performed of the retroareolar right breast demonstrates no suspicious sonographic findings. There is normal breast tissue. There is no solid mass or abnormal cystic elements in the retroareolar region. US/Breast Limited Unilateral IMPRESSION: There are no suspicious sonographic findings to account for the patient's right nipple retraction. Clinical management is recommended. BI-RADS 1: NEGATIVE. RECOMMEND ANNUAL MAMMOGRAPHIC SCREENING. RECOMMENDATION: Routine annual follow-up in 1 Year. Clinical management is rec ommended. Reading Location: [id number]
--- OUTSIDE RECORDS SUMMARY | 2024-11-14 08:38 | XMS RPT_ITS | CCD ---
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 Name Role Phone RAMSEY ANAYA Unavailable Unavailable JENARO, RAMSEY Unavailable Unavailable JENARO, RAMSEY Unavailable Unavailable JENARO, RAMSEY Unavailable Unavailable Heraclio Green Unavailable Unavailable Heraclio Green Unavailable Unavailable Heraclio Green Unavailable Unavailable Heraclio Green Primary Care Provider Heraclio Green Unavailable Heraclio Green Primary Care Provider [phone] AVELINA HAINES Attending Unavailable HERACLIO GREEN Primary Care Unavailable HERACLIO GREEN Admitting Unavailable AVELINA HAINES Attending Unavailable HERACLIO GREEN Referring Unavailable HERACLIO GREEN Primary Care Unavailable YANCY AVELIAN NSantos Attending Unavailable HERACLIO GREEN Primary Care Unavailable DRU, CROW RAY Attending Unavailable HERACLIO GREEN Primary Care Unavailable DRU, CROW RAY Attending Unavailable HERACLIO GREEN Primary Care Unavailable DRU, CROW RAY Attending Unavailable HERACLIO GREEN Primary Care Unavailable JAVI WEINSTEIN Attending Unavailable HERACLIO GREEN Primary Care Unavailable AVELINA HAINES NSantos Admitting Unavailable NADEGE HAINESYUSH N. Attending Unavailable HERACLIO GREEN Primary Care Unavailable DRU, CROW RAY Admitting Unavailable DRU, CROW RAY Attending Unavailable HERACLIO GREEN Primary Care Unavailable DRU, CROW RAY Admitting Unavailable DRU, CROW RAY Attending Unavailable HERACLIO GREEN Primary Care Unavailable DRU, CROW RAY Admitting Unavailable HERACLIO GREEN Primary Care Unavailable Heraclio Green Primary Care Provider Heraclio Green Primary Care Provider Heraclio Green Unavailable Dr. Christiano Macedo Primary Care Provider [phone] Marva Archuleta Attending Provider Unavailable Remington, Dr. Alvarado Referring Provider Dr. Yuliya Medina Attending Provider Dr. Yuliya Medina Other Provider Remington DOUGLAS, Dr. Alvarado Primary Care Provider Mina DOUGLAS, Dr. Vo Attending Provider Mina DOUGLAS, Dr. Vo Referring Provider Remington DOUGLAS, Dr. Alvarado Attending Provider Remington DOUGLAS, Dr. Alvarado Referring Provider Remington DOUGLAS, Dr. Alvarado Primary Care Provider [phone] Christiano Macedo Primary Care Unavailable Remington, Christiano Attending Unavailable Macedo, Christiano Referring Unavailable Jabour, Tavo Attending Unavailable Jabour, Tavo Referring Unavailable Macedo, Christiano Primary Care Unavailable Macedo, Christiano Primary Care Unavailable Macedo, Christiano Attending Unavailable Macedo, Christiano Referring Unavailable Macedo, Christiano Primary Care Unavailable Jabour, Tavo Attending Unavailable Jabour, Tavo Referring Unavailable Macedo, Christiano Referring Unavailable Macedo, Christiano Primary Care Unavailable Remington, Christiano Attending Unavailable Allergies Allergy Classification Reported Allergen(s) Allergy Type Date of Onset Reaction(s) Facility (20 sources) Penicillins; Translations: [penicillins] Propensity to adverse reactions to drug (disorder) 8 [facility] Repository Medications Current Medications Medication Drug Class(es) Dates Sig (Normalized) Sig (Original) cholecalciferol 0.05 mg oral capsule (5 sources) Vitamin D Start: 10-27-19 23 take 1 capsule by mouth twice daily Cholecalciferol (Vitamin D3) 50 mcg (2,000 unit) capsule Active 50 ug PO TWICE A DAY October 26, 2022 12:00am ciprofloxacin 500 mg oral tablet (2 sources) Quinolone Antimicrobial Start: 03-05-20 19 take 1 tablet by mouth twice daily ciprofloxacin HCl (CIPRO) 500 MG tablet Take 1 tablet by mouth 2 (two) times a day . 0 03/05/2019 Active hydroCHLOROthiazide 12.5 mg oral capsule (1 source) Thiazide Diuretic take 1 capsule by mouth once daily hydroCHLOROthiazide 12.5 MG capsule Take 12.5 mg by mouth daily. 0 Active hydroCHLOROthiazide 12.5 mg / losartan potassium 50 mg oral tablet (20 sources) Thiazide Diuretic, Angiotensin 2 Receptor Kat Start: 10-05-19 End: 01-24-20 Losartan/Hydrochloroth iazide (Hyzaar 50-12.5 Tablet) 1 TAB tablet Active 1 {tbl} PO DAILY October 04, 2014 12:00am losartan potassium 25 mg oral tablet (1 source) Angiotensin 2 Receptor Kat take 1 tablet by mouth once daily losartan 25 MG tablet Take 25 mg by mouth daily. 0 Active mirtazapine 45 mg oral tablet (20 sources) Start: 08-15-19 End: 07-23-19 take 1 tablet by mouth once daily in the evening mirtazapine (Remeron) 45 MG tablet Indications: Intractable headache, unspecified chronicity pattern, unspecified headache type Take 1 tablet by mouth every evening at 6 PM. 90 tablet 3 01/24/2020 07/22/2020 Active Start: 03-12-2019 End: 10-26-2022 take 1 tablet by mouth at bedtime Mirtazapine 45 MG tablet,disintegrating Discontinued 45 mg PO AT BEDTIME March 12, 2019 12:00am October 26, 2022 10:48am Start: 02-18-2019 End: 02-19-2019 take 45 mg by mouth once daily 45 mg, Oral, Nightly, First dose on 02/18/19 at 2100 Start: 01-11-2019 take 1 tablet by divine th once daily in the evening mirtazapine (REMERON) 45 MG Tab tablet Indications: Intractable headache, unspecified chronicity pattern, unspecified headache type Take 1 tablet by mouth every evening at 6 PM. 90 tablet 3 01/11/2019 Active Start: 11-14-2018 End: 01-11-2019 take 1 tablet by mouth at bedtime mirtazapine 30 MG Tab Indications: Intractable headache, unspecified chronicity pattern, unspecified headache type Take 1 tablet by mouth at bedtime. 90 tablet 0 11/14/2018 01/11/2019 Discontinued Start: 11-13-2018 take 1 tablet by divine th at bedtime mirtazapine 30 MG Tab Indications: Intractable headache, unspecified chronicity pattern, unspecified headache type Take 1 tablet by mouth at bedtime. 90 tablet 0 11/13/2018 Active Start: 02-02-2018 mirtazapine (R EMERON) 30 MG tablet Take 45 mg by mouth nightly . 0 02/02/2018 Active Start: 02-02-2018 End: 11-13-2018 take 1 tablet by mouth once daily mirtazapine (REMERON) 30 MG tablet Take 30 mg by mouth nightly . 0 02/02/2018 Active rosuvastatin calcium 5 mg oral tablet (5 sources) HMG-CoA Reductase Inhibitor Start: 10-26-2022 take 1 tablet by mouth once daily Rosuvastatin 5 mg tablet Active 5 mg PO DAILY October 26, 2022 12:00am tamsulosin hydrochloride 0.4 mg oral capsule (2 sources) alpha-Adrenergic Kat take 1 capsule by mouth once daily tamsulosin (FLOMAX) 0.4 mg capsule Take 0.4 mg by mouth daily . 0 Active topiramate 50 mg oral tablet (20 sources) Start: 03-12-2019 take 2 tablets by mouth at bedtime Topiramate 50 MG tablet Active 100 mg PO AT BEDTIME March 12, 2019 12:00am Start: 03-12-2019 take 100 mg by mouth at bedtim e Topiramate Active 100 MG PO AT BEDTIME March 11, 2019 11:00pm Start: 03-12-2019 End: 07-22-2020 take 50 mg by mouth twice daily Topiramate Active 50 M G PO TWICE A DAY March 11, 2019 11:00pm Start: 02-18-2019 End: 02-19-2019 50 mg, Oral, 2 times daily, First dose on Mon02/18/19 at 2100 Do Not Crush or Chew if administering orally due to bitter taste. May be crushed if given via tube. Start: 01-11-2019 take 1 tablet by divine th twice daily topiramate 50 MG Tab Indications: Intractable headache, unspecified chronicity pattern, unspecified headache type Take 1 tablet by mouth 2 times daily. 180 tablet 3 01/11/2019 Active Start: 11-14-2018 End: 01-11-2019 take 1 tablet by mouth twice daily topiramate 50 MG Tab Indications: Intractable headache, unspecified chronicity pattern, unspecified headache type Take 1 tablet by mouth 2 times daily. 180 tablet 0 11/14/2018 01/11/2019 Discontinued (Reorder) Start: 11-13-2018 take 1 tablet by divine th twice daily topiramate 50 MG Tab Indications: Intractable headache, unspecified chronicity pattern, unspecified headache type Take 1 tablet by mouth 2 times daily. 180 tablet 0 11/13/2018 Active Start: 02-02-2018 End: 11-13-2018 take 1 tablet by mouth twice daily topiramate (TOPAMAX) 50 MG tablet Take 50 mg by mouth 2 (two) times a day . 0 02/02/2018 Active Completed/Discontinued Medications Medication Drug Class(es) Dates Sig (Normalized) Sig (Original) acetaminophen 325 mg oral tablet (1 source) Start: 02-18-2019 End: 02-19-2019 take 1 tablet by mouth every six hours as needed 650 mg, Oral, Every 6 hours PRN, headaches, Starting 02/18/19 at 1647 atorvastatin 20 mg oral tablet (20 sources) HMG-CoA Reductase Inhibitor Start: 10-04-2014 End: 10-26-2022 take 1 tablet by mouth at bedtime Atorvastatin 20 MG tablet Discontinued 20 mg PO AT BEDTIME October 04, 2014 12:00am October 26, 2022 10:48am benzonatate 100 mg oral capsule (1 source) Non-narcotic Antitussive Start: 02-18-2019 End: 02-19-2019 take 100 mg by mouth three times daily as needed for cough 100 mg, Oral, 3 times daily PRN, cough, Starting 02/18/19 at 1647 DO NOT CRUSH OR CHEW. Budesonide / formoterol (20 sources) Corticosteroid, beta2-Adrenergic Agonist Start: 02-18-2019 End: 02-19-2019 take 2 puff(s) by inhalation twice daily as needed 2 puff, Inhalation, 2 times daily PRN, sob, Starting 02/18/19 at 1647 SPACER REQUIRED FOR ADMINISTRATION Start: 10-04-2014 Budesonide-For moterol (Symbicort 80-4.5 Mcg Inhaler) 1 INHALER inhaler Active 2 PUFF INHALATION TWICE DAILY NEEDED October 04, 2014 12:06am Start: 10-04-2014 Budesonide-For moterol (Symbicort 80-4.5 Mcg Inhaler) 1 INHALER inhaler Active 2 NMA INHALATION TWICE DAILY NEEDED as needed for Sob &/Or Wheezing October 04, 2014 12:00am Start: 10-04-2014 Budesonide-For moterol (Symbicort 80-4.5 Mcg Inhaler) 1 INHALER inhaler Active 2 PUFF INHALATION TWICE DAILY NEEDED October 03, 2014 11:00pm Start: 10-04-2014 Budesonide-For moterol (Symbicort 80-4.5 Mcg Inhaler) 1 INHALER inhaler Active 2 PUFF INHALATION TWICE DAILY NEEDED October 04, 2014 12:00am take 2 puff(s) by in halation every twelve hours budesonide-formoterol (SYMBICORT) 160-4.5 mcg/puff Aerosol inhaler Inhale 2 puffs every 12 hours. 0 Active take 2 puff(s) by in halation twice daily as needed budesonide-formoterol (SYMBICORT) 160-4.5 mcg/actuation inhaler Inhale 2 puffs 2 (two) times a day as needed . 0 Active take 2 puff(s) by in halation twice daily budesonide-formoterol (SYMBICORT) 160-4.5 mcg/actuation inhaler Inhale 2 puffs 2 (two) times a day . 0 Active take 2 puff(s) by in halation twice daily budesonide-formoterol (SYMBICORT) 160-4.5 mcg/actuation inhaler Inhale 2 puffs 2 (two) times a day . 0 Active calcium chloride 0.0014 meq/ml / potassium chloride 0.004 meq/ml / sodium chloride 0.103 meq/ml / sodium lactate 0.028 meq/ml injectable solution (6 sources) Start: 02-18-2019 End: 02-19-2019 take 75 mL intravenous route every hour 75 mL/hr, Intravenous, Continuous, Starting 02/18/19 at 1745 Start: 02-18-2019 End: 02-18-2019 lactated Ringers infusion Start: 12-11-2018 End: 12-11-2018 lactated Ringers infusion Start: 10-10-2018 End: 10-10-2018 take 100 mL intravenous route every hour 100 mL/hr, Intravenous, Continuous, Starting Mon10/10/18 at 0930, PACU (only) Start: 10-10-2018 End: 10-10-2018 lactated Ringers infusion 0.4 ml enoxaparin sodium 100 mg/ml prefilled syringe (2 sources) Low Molecular Weight Heparin Start: 02-18-2019 End: 02-19-2019 inject 40 mg by subcutaneous injection once daily 40 mg, Subcutaneous, Daily, First dose on Mon02/19/19 at 0800 Administer in abdomen unless otherwise directed by prescriber. Notify physician if patient refuses. Indication: VTE Prophylaxis fenofibrate 54 mg oral tablet (14 sources) Peroxisome Proliferator Receptor alpha Agonist Start: 02-18-2019 End: 01-24-2020 take 54 mg by mouth once daily 54 mg, Oral, Daily, First dose on Mon02/18/19 at 1830 take 1 tablet by mouth once janel y fenofibrate (TRICOR) 54 MG tablet Take 54 mg by mouth daily . 0 Active flu vacc [id number](65yr up)PF (FLUZONE HIGH DOSE) syringe 0.5 mL (1 source) Start: 02-19-2019 End: 02-19-2019 inject 0.5 mL by intramuscular injection every twenty-four hours as needed flu vacc [id number](65yr up)PF (FLUZONE HIGH DOSE) syringe 0.5 mL fluticasone propionate 0.05 mg/actuat metered dose nasal spray (3 sources) Corticosteroid End: 01-24-2020 fluticasone 50 MCG/ACT Suspension nasal spray 2 sprays by Nasal route daily. 0 01/24/2020 Discontinued 1 ml hydrALAZINE hydrochloride 20 mg/ml injection (1 source) Arteriolar Vasodilator Start: 02-18-2019 End: 02-18-2019 5 mg, Intravenous, Every 15 min PRN, SBP greater than 160 or DBP greater than 90, Starting Mon02/18/19 at 1417, For 4 doses, PACU (only) [] Do not give more than 20 mg total. [] Hold for HR greater than 100. [] Administer if labetalol or metoprolol ineffective at maximum dose or not ordered. HYDROmorphone (DILAUDID) 0.5 mg/mL injection 0.25 mg (1 source) Start: 02-18-2019 End: 02-18-2019 0.25 mg, Intravenous, Every 5 min PRN, Pain, Starting Mon02/18/19 at 1218, For 8 doses, PACU (only) [] Give if fentanyl not effective or not ordered. [] Do not give more than 2.0 mg total. ibuprofen 600 mg oral tablet (1 source) Nonsteroidal Anti-inflammatory Drug Start: 02-18-2019 End: 02-19-2019 take 1 tablet by mouth every six hours as needed 600 mg, Oral, Every 6 hours PRN, headaches, mild pain, Starting 02/18/19 at 1647 Give at least 6 hours after last dose of ketorolac (TORADOL). Do Not Crush or Chew if administering orally due to bitter taste. May be crushed if given via tube. 4 ml labetalol hydrochloride 5 mg/ml cartridge (2 sources) beta-Adrenergic Kat Start: 02-18-2019 End: 02-18-2019 5 mg, Intravenous, Every 5 min PRN, SBP greater than 180 or DBP greater than 120, Starting 02/18/19 at 1218, For 4 doses, PACU (only) [] Do not give more than 20 mg total. [] Hold for HR less than 50. Start: 10-10-2018 End: 10-10-2018 5 mg, Intravenous, Every 5 m in PRN, SBP greater than 180 or DBP greater than 120, Starting 10/10/18 at 0831, For 4 doses, PACU (only) [] Do not give more than 20 mg total. [] Hold for HR less than 50. losartan (COZAAR) 50 mg, hydroCHLOROthiazide (HYDRODIURIL) 12.5 mg combo tab (1 source) Start: 02-18-2019 End: 02-19-2019 take 1 dose by mouth once daily Oral, Daily, First dose on Mon02/18/19 at 1830 naloxone (NARCAN) injection 0.1 mg (1 source) Start: 02-18-2019 End: 02-19-2019 naloxone (NARCAN) injection 0.1 mg 2 ml ondansetron 2 mg/ml injection (2 sources) Serotonin-3 Receptor Antagonist Start: 02-18-2019 End: 02-19-2019 take 4 mg intravenous route every six hours as needed 4 mg, Intravenous, Every 6 hours PRN, nausea, vomiting, Starting 02/18/19 at 1647 Start: 10-10-2018 End: 10-10-2018 take 4 mg intravenous route every twenty-four hours as needed 4 mg, Intravenous, Once as needed, nausea, vomiting, Starting Mon10/10/18 at 0831, For 1 dose, PACU (only) Administer first as needed for nausea/vomiting, or as directed by anesthesia 2 ml prochlorperazine 5 mg/ml injection (1 source) Phenothiazine Start: 10-10-2018 End: 10-10-2018 2.5 mg, Intravenous, Every 1 5 min PRN, nausea, Starting Mon10/10/18 at 0831, For 2 doses, PACU (only) Administer if ondansetron (Zofran), promethazine (Phenergan), and Metocolopramide (Reglan) ineffective or not ordered, or as directed by anesthesia, as needed for nausea/vomiting Do not give more than 2 doses. Problems Active Problems Problem Classification Problem Date Documented Date Episodic/Chronic Esophageal disorders (14 sources) Gastroesophageal reflux disease; Translations: [Gastro-esophageal reflux disease with esophagitis] Onset: 09-19-2018 09-19-2018 Chronic Fluid and electrolyte disorders (8 sources) Dehydration; Translations: [Dehydration] 03-13-2019 Episodic Headache, including migraine (2 sources) Episodic tension-type headache, intractable; Translations: [Episodic tension-type headache, intractable] Onset: 08-07-2017 Chronic Headache, including migraine (4 sources) Headache, including migraine; Translations: [Intractable episodic tension-type headache] Onset: 08-07-2017 08-07-2017 Miscellaneous mental health disorders (3 sources) Primary insomnia; Translations: [Primary insomnia] Onset: 08-07-2017 08-07-2017 Chronic Nonmalignant breast conditions (1 source) Retraction of nipple; Translations: [Retraction of nipple] Onset: 11-13-2024 Episodic Other screening for suspected conditions (not mental disorders or infectious disease) (7 sources) Patient encounter status; Translations: [Encounter for screening for malignant neoplasm of colon] Onset: 11-12-2024 10-26-2022 Episodic Syncope (8 sources) Syncope; Translations: [Syncope and collapse] 03-13-2019 Episodic Unclassified (1 source) Follow-up / 145() Onset: 02-02-2018 Unclassified (1 source) Patient encounter status; Translations: [Preop testing] Past or Other Problems Problem Classification Problem Date Documented Da te Episodic/Chronic Abdominal pain (10 sources) Epigastric pain; Translations: [Abdominal pain, epigastric] Onset: 9 11-07-2018 Episodic Complications of surgical procedures or medical care (11 sources) Postoperative complication; Translations: [Slipped Shanthi fundoplication] Onset: 9 01-09-2019 Episodic Esophageal disorders (9 sources) Gastroesophageal reflux disease with hiatal hernia; Translations: [Hiatal hernia with GERD without esophagitis] Onset: 9 01-09-2019 Episodic Gastritis and duodenitis (2 sources) Helicobacter pylori-associated gastritis; Translations: [Gastritis, unspecified, without bleeding] Onset: 5 Episodic Headache, including migraine (4 sources) Headache; Translations: [Headache] Onset: 8 Episodic Other gastrointestinal disorders (10 sources) Heartburn; Translations: [Heartburn] Onset: 9 11-07-2018 Episodic Other gastrointestinal disorders (10 sources) Eructation; Translations: [Excessive belching] Onset: 9 11-07-2018 Episodic Residual codes; unclassified (11 sources) History of fundoplication; Translations: [History of Shanthi fundoplication] Onset: 9 11-07-2018 Episodic Unclassified (1 source) Follow-up; Translations: [Follow-up] Onset: 8 Results Test Name Value Interpretation Reference Range Facility Bone density reportOrdered B y: Jaiden Shah on 11-08-2024 Study report Skeletal system DXA [facility] Services [address], [place] [id number] Dexa Bone Density Study MR#: [id number] Acct: [id number] Name: MARIA ELENA ALAN Rep #: [id number] : 1955 F 69 From: Daljit Shah MD PCP: Dr. Christiano Macedo MD Status: JAIME C ALLA Study:Dexa Bone Density Study Date of Exam: 11/07/24 Exam# [id number] Ordering Dr: Christiano Macedo MD PROCEDURE: DEXA BONE DENSITY STUDY 11/07/2024 REASON FOR EXAM: F, age 69 y/o . Postmenopausal. TECHNIQUE: DEXA BONE DENSITY STUDY COMPARISON: Prior study dated October 26, 2021. FINDINGS: BMD and T-SCORES Lumbar spine: 0.895 g/cm2, T-score -1.4 Levels: L1 through L4 Change from prior: Loss of 0.8%. Left femoral neck: 0.646 g/cm2, T-score -1.8 Femoral neck comparison data not recommended for monitoring change. Left total hip: 0.796 g/cm2, T-score -1.2 Change from prior: Loss of 1.4%. Right femoral neck: 0.621 g/cm2, T-score -2.1 Femoral neck comparison data not recommended for monitoring change. Right total hip: 0.784 g/cm2, T-score -1.3 Change from prior: Loss of 3.6%. The World Health Organization has defined the following categories based on bonedensity: Normal bone density: T-score equal to or greater than -1.0 Osteopenia: T-score between -1.0 and -2.5 Osteoporosis: T-score equal to or less than -2.5 The patient does meet the pharmacological treatment recommendations for prevention of osteoporosis. BD/Dexa Bone Density Study IMPRESSION: OSTEOPENIA. Recommend follow-up as clinically warranted. Reading Location: [facility] CC: Dr. Christiano Macedo MD ~ Analyst Competitive Intelligence: Signed [facility] Breast imaging reportOrdered By: Jaiden Shah on 11-07-2024 Study report [facility] Services [address] [place], [place] [id number] SCRN MAMM (CAD)W/BRANDT VILLAFUERTEJAYME MR#: [id number] Acct: [id number] Name: MARIA ELENA ALAN Rep #: [id number] : 1955 F 69 From: Daljit Shah MD PCP: Dr. Christiano Macedo MD Status: JAIME GOLD Study:SCRN MAMM (CAD)W/BRANDT BILAT Date of Exa m: 11/07/24 Exam# [id number] Ordering Dr: Christiano Macedo MD EXAM: SCRN MAMM (CAD)W/BRANDT BILAT DATE: 11/07/2024 CLINICAL HISTORY: F, Age 69 y/o , SCREENING Sister with breast cancer. TECHNIQUE: SCRN MAMM (CAD)W/BRANDT BILAT COMPARISON: Prior exam(s) dated October 26, 2021.. FINDINGS: TISSUE DENSITY: The breasts are heterogeneously dense, which may obscure small masses. Bilateral Breast Mammographic Findings: No significant masses, calcifications or other abnormalities are identified. There is retraction of the right areolar complex. Correlation with ultrasound is recommended. BI/SCRN MAMM (CAD)W/BRANDT BILAT IMPRESSION: Retraction of the right areolar complex. Correlation with ultrasound recommended. OVERALL FINAL ASSESSMENT BI-RADS 0: INCOMPLETE - NEED ADDITIONAL IMAGING EVALUATION. RECOMMENDATION: Ultrasound Recommended A letter with findings and recommendations will be mailed to the patient. Reading Location: [id number] CC: Dr. Christiano Macedo MD ~ Analyst Competitive Intelligence: Signed [facility] Dexa Bone Density Studyon Dexa Bone Density Study [facility] Imaging Services [address] [place] [id number] Dexa Bone Density Study MR#: [id number] Acct: [id number] Name: MARIA ELENA ALAN Rep #: [id number] : 1955 F 69 From: Jaiden galvan MD PCP: Dr. Christiano Macedo MD Status: REG CLI Study: Dexa Bone Density Study Date of Exam: 11/07/24 Exam# [id number] Ordering Dr: Christiano Macedo MD PROCEDURE: DEXA BONE DENSITY STUDY 11/07/2024 REASON FOR EXAM: F, age 69 y/o . Postmenopausal. TECHNIQUE: DEXA BONE DENSITY STUDY COMPARISON: Prior study dated October 26, 2021. FINDINGS: BMD and T-SCORES Lumbar spine: 0.895 g/cm2, T-score -1.4 Levels: L1 through L4 Change from prior: Loss of 0.8%. Left femoral neck: 0.646 g/cm2, T-score -1.8 Femoral neck comparison data not recommended for monitoring change. Left total hip: 0.796 g/cm2, T-score -1.2 Change from prior: Loss of 1.4%. Right femoral neck: 0.621 g/cm2, T-score -2.1 Femoral neck comparison data not recommended for monitoring change. Right total hip: 0.784 g/cm2, T-score -1.3 Change from prior: Loss of 3.6%. The World Health Organization has defined the following categories based on bone density: Normal bone density: T-score equal to or greater than -1.0 Osteopenia: T-score between -1.0 and -2.5 Osteoporosis: T-score equal to or less than -2.5 The patient does meet the pharmacological treatment recommendations for prevention of osteoporosis. BD/Dexa Bone Density Study IMPRESSION: OSTEOPENIA. Recommend follow-up as clinically warranted. Reading Location: [id number] CC: Dr. Christiano Macedo MD Analyst Competitive Intelligence: Signed Normal [facility] SCRN MAMM (CAD)W/BRANDT BILATo n 11-07-2024 SCRN MAMM (CAD)W/BRANDT BILAT [facility] Imaging Services [address] [place], [place] [address] SCRN MAMM (CAD)W/BRANDT BILAT MR#: [id number] Acct: [id number] Name: MARIA ELENA ALAN Rep #: [id number] : 1955 F 69 From: Jaiden galvan MD PCP: Dr. Christiano Macedo MD Status: [facility] Study: SCRN MAMM (CAD)W/BRANDT BILAT Date of Exam: 10/14 11/06 Exam# [id number] Ordering Dr: Christiano Macedo MD EXAM: SCRN MAMM (CAD)W/BRANDT BILAT DATE: 11/07/2024 CLINICAL HISTORY: F, Age 69 y/o , SCREENING Sister with breast cancer. TECHNIQUE: SCRN MAMM (CAD)W/BRANDT BILAT COMPARISON: Prior exam(s) dated October 26, 2021.. FINDINGS: TISSUE DENSITY: The breasts are heterogeneously dense, which may obscure small masses. Bilateral Breast Mammographic Findings: No significant masses, calcifications or other abnormalities are identified. There is retraction of the right areolar complex. Correlation with ultrasound is recommended. BI/SCRN MAMM (CAD)W/BRANDT BILAT IMPRESSION: Retraction of the right areolar complex. Correlation with ultrasound recommended. OVERALL FINAL ASSESSMENT BI-RADS 0: INCOMPLETE - NEED ADDITIONAL IMAGING EVALUATION. RECOMMENDATION: Ultrasound Recommended A letter with findings and recommendations will be mailed to the patient. Reading Location: [facility] CC: Dr. Christiano Macedo MD Analyst Competitive Intelligence: Signed Normal [facility] Anion gap in Serum or Plasma Ordered By: Christiano Macedo on 10-10-2024 Anion gap [Moles/Vol] 12 mmol/L - [facility] BUN/creatinine ratioOrdered By: Christiano Macedo on 10-10-2024 Urea nitrogen/Creatinine [Mass ratio] 15.1 mg/mg - [facility] Basic Metabolic Profile (BMP )on 10-10-2024 BUN/CRE 15.1 RATIO Normal - [facility] Comment on above: Performed By: #### L 500.2500, L500.4100 #### [facility] [address] [place], [address] Calcium [Mass/Vol] 9.5 mg/dL Normal 7.6-11.0 [facility] Comment on above: Performed By: #### L 500.2500, L500.4100 #### [facility] [address] [place], [address] Chloride [Moles/Vol] 107 mmol/L Normal 98-108 [facility] Comment on above: Performed By: #### L 500.2500, L500.4100 #### [facility] [address] [place], [address] CO2 [Moles/Vol] 22.7 mmol/L Normal 21.0-32.0 [facility] Comment on above: Performed By: #### L 500.2500, L500.4100 #### [facility] [address] [place], [address] Creatinine [Mass/Vol] 0.92 mg/dL Normal 0.70-1.20 [facility] Comment on above: Performed By: #### L 500.2500, L500.4100 #### [facility] [address] [place], [address] GAP 12 Normal 5-15 [facility] Comment on above: Performed By: #### L 500.2500, L500.4100 #### [facility] [address] [place], [address] GFR/1.73 sq M.predicted among non-blacks MDRD (S/P/Bld) [Vol rate/Area] 67 mL/min/{1.73_m2} Normal >60 [facility] Comment on above: Result Comment: mL/m in/1.73m2 CKD-EPI Creatinine Equation (2020) Performed By: #### L 500.2500, L500.4100 #### [facility] [address] [place], [address] Glucose [Mass/Vol] 96 mg/dL Normal 70-99 [facility] Comment on above: Performed By: #### L 500.2500, L500.4100 #### [facility] [address] [place], [address] Potassium [Moles/Vol] 4.2 mmol/L Normal 3.3-5.1 [facility] Comment on above: Performed By: #### L 500.2500, L500.4100 #### [facility] [address] [place], [address] Sodium [Moles/Vol] 141 mmol/L Normal 133-145 [facility] Comment on above: Performed By: #### L 500.2500, L500.4100 #### [facility] [address] [place], [address] Urea nitrogen [Mass/Vol] 14 mg/dL Normal 4-19 [facility] Comment on above: Performed By: #### L 500.2500, L500.4100 #### [facility] [address] [place], [address] Calculated very low density lipoprotein (VLDL) cholesterol measurementOrdered By: Christiano Macedo on 10-10-2024 Calculated very low density lipoprotein (VLDL) cholesterol measurement 15 mg/dL 5-40 [facility] Carbon dioxide, total [Moles /volume] in Central venous bloodOrdered By: Christiano Macedo on 10-10-2024 CO2 [Moles/Vol] 22.7 mmol/L 21.0-32.0 [facility] Chloride assayOrdered By: Chuckie Macedo on 10-10-2024 Chloride [Moles/Vol] 107 mmol/L 98-108 [facility] Glomerular filtration rate ( GFR) estimation/1.73 sq m using serum, plasma, or whole bOrdered By: Christiano Macedo on 10-10-2024 GFR/1.73 sq M.predicted among non-blacks MDRD (S/P/Bld) [Vol rate/Area] 67 mL/min/{1.73_m2} >60 [facility] Comment on above: mL/min/1.73m2 CKD-EP I Creatinine Equation (2020) LDL calc ser/plasOrdered By: Christiano Macedo on 10-10-2024 Cholesterol in LDL [Mass/Vol] 114 mg/dL [facility] Comment on above: Zqqflnvggm=163-109 m g/dL & Higher Dslt=479 mg/dL or greater Lipid Profileon 10-10-2024 CHOL:HDL 2.43 Normal [facility] Comment on above: Performed By: #### L 500.2500, L500.4100 #### [facility] [address] [place], [address] Cholesterol [Mass/Vol] 220 mg/dL High <=200 [facility] Comment on above: Result Comment: Chol esterol level, Desirable <200 mg/dL Borderline high cholesterol 200-239 mg/dL High cholesterol >=240 mg/dL Recommendations of the NCEP Adult Treatment Panel for the following risk-cutoff thresholds for the [place] population. Performed By: #### L 500.2500, L500.4100 #### [facility] [address] [place], [address] Cholesterol in HDL [Mass/Vol] 91 mg/dL Normal [facility] Comment on above: Result Comment: [place] onal Cholesterol Education Program (NCEP) guidelines: <40 mg/dL: Low HDL-cholesterol (major risk factor for CHD) >= 60 mg/dL: High HDL-cholesterol (negative risk factor for CHD) HDL-cholesterol is affected by a number of factors, e.g. smoking, exercise, hormones, sex and age. Performed By: #### L 500.2500, L500.4100 #### [facility] [address] [place], [address] Cholesterol in LDL [Mass/Vol] 114 mg/dL Normal [facility] Comment on above: Result Comment: Bord sxyqug=498-152 mg/dL Higher Nfmp=773 mg/dL or greater Performed By: #### L 500.2500, L500.4100 #### [facility] [address] [place], [address] Cholesterol in VLDL [Mass/Vol] 15 mg/dL Normal 5-40 [facility] Comment on above: Performed By: #### L 500.2500, L500.4100 #### [facility] [address] [place], [address] Triglyceride [Mass/Vol] 75 mg/dL Normal [facility] Comment on above: Result Comment: The drugs N-Acetylcysteine and Metamizole may falsely depress this assay. Normal range: <150 mg/dL Borderline High: 150-199 mg/dL High: 200-499 mg/dL Very High: >500 mg/dL Performed By: #### L 500.2500, L500.4100 #### [facility] [address] [place], [address] Potassium measurement (mass/ volume)Ordered By: Christiano Macedo on 10-10-2024 Potassium (Unsp spec) [Mass/Vol] 4.2 mmol/L 3.3-5.1 [facility] Screening total cholesterol/ high density lipoprotein (HDL) cholesterol ratioOrdered By: Christiano Macedo on 10-10-2024 Cholesterol.total/Chol esterol in HDL [Mass ratio] 2.43 {ratio} [facility] Serum creatinine measurement (mass/volume)Ordered By: Christiano Macedo on 10-10-2024 Creatinine [Mass/Vol] 0.92 mg/dL 0.70-1.20 [facility] Serum glucose measurement (m ass/volume)Ordered By: Christiano Macedo on 10-10-2024 Glucose [Mass/Vol] 96 mg/dL 70-99 [facility] Serum or plasma calcium jimbo urement (mass/volume)Ordered By: Christiano Macedo on 10-10-2024 Calcium [Mass/Vol] 9.5 mg/dL 7.6-11.0 [facility] Serum or plasma cholesterol in HDL measurement (mass/volume)Ordered By: Christiano Macedo on 10-10-2024 Cholesterol in HDL [Mass/Vol] 91 mg/dL >40 [facility] Comment on above: National Cholesterol Education Program (NCEP) guidelines:<40 mg/dL: Low HDL-cholesterol (major risk factor for CHD)>= 60 mg/dL: High HDL-cholesterol (negative risk factor for CHD)HDL-cholesterol is affected by a number of factors, e.g. smoking, exercise, hormones, sex and age. Serum or plasma cholesterol measurement (mass/volume)Ordered By: Christiano Macedo on 10-10-2024 Cholesterol [Mass/Vol] 220 mg/dL High <201 [facility] Comment on above: Cholesterol level, D esirable <200 mg/dLBorderline high cholesterol 200-239 mg/dLHigh cholesterol >=240 mg/dLRecommendations of the NCEP Adult Treatment Panel for the following risk-cutoff thresholds for the [place] population. Serum or plasma urea nitroge n measurement (mass/volume)Ordered By: Christiano Macedo on 10-10-2024 Urea nitrogen [Mass/Vol] 14 mg/dL 4-19 [facility] Sodium levelOrdered By: Christiano Macedo on 10-10-2024 Sodium [Moles/Vol] 141 mmol/L 133-145 [facility] Triglycerides measurementOrd ered By: Christiano Macedo on 10-10-2024 Triglyceride [Mass/Vol] 75 mg/dL <199 [facility] Comment on above: The drugs N-Acetylcy steine and Metamizole may falsely depress this assay. Normal range: <150 mg/dLBorderline High: 150-199 mg/dLHigh: 200-499 mg/dLVery High: >500 mg/dL H. PYLORI STOOL AGon 025 H PYLORI STL AG Positive Abnormal Negative [facility] Comment on above: Result Comment: Perf ormed at: [facility] [place] [id number] Edge Trimmer: Tavo Xiong PhD, Phone: [phone] Performed By: #### L 3100.1950 #### [facility] [address] [place], [address] Stool Helicobacter pylori an tigen detection by immunoassayOrdered By: Tavo Enriquez on 07-08-2024 H. pylori Ag IA Ql (Stl) Positive High Negative [facility] Comment on above: Performed at: [facility] [address] [id number] Director: Tavo Xiong PhD, Phone: [phone] Esophagus Dual Contraston Esophagus Dual Contrast [facility] [address] [place] [address] Esophagus Dual Contrast MR#: [id number] Acct: [id number] Name: MARIA ELENA ALAN Rep #: [id number] : 1955 F 68 From: Jaiden galvan MD PCP: Dr. Christiano Macedo MD Status: REG CLI Study: Esophagus Dual Contrast Date of Exam: 01/29/24 Exam# [id number] Ordering [place]: [place] [id number] STUDY: X-RAY - ESOPHAGUS (BARIUM SWALLOW) WITH FLUOROSCOPY REASON FOR EXAM: Female, 68 years old. GERD, DYSPHAGIA *12MM TAB. The patient is status post Shanthi fundoplication. TECHNIQUE: 32 fluoroscopic view(s) of the esophagus were obtained following swallowing of barium. FLUOROSCOPY TIME (if supplied): (23 seconds) minutes/seconds. 1.4 mGy. COMPARISON: None. FINDINGS: There is no demonstrated esophageal foreign body. There is no demonstrated stricture or mucosal abnormality. Normal gastroesophageal junction, without a demonstrated hiatal hernia. Evidence of prior Shanthi fundoplication. The patient ingested a 12 mm tablet of barium without any difficulty. Normal visualized aortic arch and descending thoracic aorta. Normal visualized pulmonary parenchyma. Normal visualized osseous structures of the thorax. RAD/Esophagus Dual Contrast IMPRESSION: Status post Shanthi fundoplication. The patient ingested a 12 mm tablet of barium without any difficulty. No gastroesophageal reflux is seen. Electronically Signed: Jaiden Shah MD at 15:11 EDT , CC: Dr. Christiano Macedo MD; Dr. Tavo Enriquez MD Analyst [employer]: Signed Normal [facility] Basophil percentageOrdered B y: Christiano Macedo on 05-01-2023 Chloride [Moles/Vol] 105 mmol/L 98-107 [facility] Glucose [Mass/Vol] 96 mg/dL 74-106 [facility] Potassium [Moles/Vol] 3.8 mmol/L 3.5-5.1 [facility] Sodium [Moles/Vol] 140 mmol/L 136-145 [facility] Laboratory - Chemistry and C hemistry - challengeOrdered By: Christiano Macedo on 05-01-2023 CO2 [Moles/Vol] 27.0 mmol/L 21.0-32.0 [facility] Urea nitrogen/Creatinine [Mass ratio] 17.5 mg/mg 10-20 [facility] No Panel InformationOrdered By: Christiano Macedo on 05-01-2023 Estimated GFR (MDRD) Amer 68 mL/min >60 [facility] Comment on above: GFR Calc Estimated GFR (MDRD) Non-Af Amer 56 mL/min >60 [facility] Comment on above: Non- GFR Calc Serum or plasma calcium jimbo urement (mass/volume)Ordered By: Christiano Macedo on 05-01-2023 Calcium [Mass/Vol] 8.9 mg/dL 8.5-10.1 [facility] Serum or plasma creatinine m easurement (mass/volume)Ordered By: Christiano Macedo on 05-01-2023 Creatinine [Mass/Vol] 1.03 mg/dL 0.55-1.02 [facility] Comment on above: The validity of the calculated GFR & GFRAA in patients over 70 years has not been determined. Clinical correlation is essential. Serum or plasma urea nitroge n measurement (mass/volume)Ordered By: Christiano Macedo on 05-01-2023 Urea nitrogen [Mass/Vol] 18 mg/dL -18 [facility] Thin prep Papanicolaou smear with manual screeningOrdered By: Christiano Macedo on 05-01-2023 Thin prep Papanicolaou smear with manual screening 8 5-15 [facility] Basophil percentageOrdered B y: Christiano Macedo on 03-24-2023 Chloride [Moles/Vol] 102 mmol/L 98-107 [facility] Cholesterol [Mass/Vol] 189 mg/dL <200 [facility] Comment on above: <200 mg/dL Desirable 200-240 mg/dL Borderline >240 mg/dL High Risk Glucose [Mass/Vol] 121 mg/dL 74-106 [facility] Comment on above: Fasting Glucose resu lt from 100 to 125 mg/dL suggests IMPAIRED HOMEOSTASIS per A.D.A. criteria. Potassium [Moles/Vol] 2.9 mmol/L 3.5-5.1 [facility] Sodium [Moles/Vol] 134 mmol/L 136-145 [facility] Triglyceride [Mass/Vol] 80 mg/dL <199 [facility] Comment on above: The drugs N-Acetylcy steine and Metamizole may falsely depress this assay.Serum Triglycerides Reference Interval Normal <150 mg/dL Borderline high 150 - 199 mg/dL High 200 - 499 mg/dL Very High > or = 500 mg/dL Laboratory - Chemistry and C hemistry - challengeOrdered By: Christiano Macedo on 03-24-2023 CO2 [Moles/Vol] 30.0 mmol/L 21.0-32.0 [facility] Urea nitrogen/Creatinine [Mass ratio] 16.2 mg/mg 10-20 [facility] No Panel InformationOrdered By: Christiano Macedo on 03-24-2023 Estimated GFR (MDRD) Amer 67 mL/min >60 [facility] Comment on above: GFR Calc Estimated GFR (MDRD) Non-Af Amer 55 mL/min >60 [facility] Comment on above: Non- GFR Calc Serum or plasma calcium jimbo urement (mass/volume)Ordered By: Christiano Macedo on 03-24-2023 Calcium [Mass/Vol] 9.2 mg/dL 8.5-10.1 [facility] Serum or plasma cholesterol in HDL measurement (mass/volume)Ordered By: Christiano Macedo on 03-24-2023 Cholesterol in HDL [Mass/Vol] 94 mg/dL >40 [facility] Comment on above: The drugs N-Acetylcy steine and Metamizole may falsely depress this assay. Reference Range HDL <40 mg/dL Low HDL Cholesterol HDL >or= 60 mg/dL High HDL Cholesterol Serum or plasma cholesterol in VLDL measurement (mass/volume)Ordered By: Christiano Macedo on 03-24-2023 Cholesterol in VLDL [Mass/Vol] 16 mg/dL 5-40 [facility] Serum or plasma creatinine m easurement (mass/volume)Ordered By: Christiano Macedo on 03-24-2023 Creatinine [Mass/Vol] 1.05 mg/dL 0.55-1.02 [facility] Comment on above: The validity of the calculated GFR & GFRAA in patients over 70 years has not been determined. Clinical correlation is essential. Serum or plasma low density lipoprotein (LDL) cholesterol measurement (mass/volume)Ordered By: Christiano Macedo on 03-24-2023 Cholesterol in LDL [Mass/Vol] 79 mg/dL 0-130 [facility] Serum or plasma urea nitroge n measurement (mass/volume)Ordered By: Christiano Macedo on 03-24-2023 Urea nitrogen [Mass/Vol] 17 mg/dL 7-18 [facility] Thin prep Papanicolaou smear with manual screeningOrdered By: Christiano Macedo on 03-24-2023 Thin prep Papanicolaou smear with manual screening 2 5-15 [facility] Basophil percentageOrdered B y: Christiano Macedo on 10-06-2022 Chloride [Moles/Vol] 108 mmol/L 98-107 [facility] Cholesterol [Mass/Vol] 186 mg/dL <200 [facility] Comment on above: <200 mg/dL Desirable 200-240 mg/dL Borderline >240 mg/dL High Risk Glucose [Mass/Vol] 91 mg/dL 74-106 [facility] Potassium [Moles/Vol] 3.6 mmol/L 3.5-5.1 [facility] Sodium [Moles/Vol] 141 mmol/L 136-145 [facility] Triglyceride [Mass/Vol] 86 mg/dL <199 [facility] Comment on above: The drugs N-Acetylcy steine and Metamizole may falsely depress this assay.Serum Triglycerides Reference Interval Normal <150 mg/dL Borderline high 150 - 199 mg/dL High 200 - 499 mg/dL Very High > or = 500 mg/dL Laboratory - Chemistry and C hemistry - challengeOrdered By: Christiano Macedo on 10-06-2022 CO2 [Moles/Vol] 29.0 mmol/L 21.0-32.0 [facility] Urea nitrogen/Creatinine [Mass ratio] 19.5 mg/mg 10-20 [facility] No Panel InformationOrdered By: Christiano Macedo on 10-06-2022 Estimated GFR (MDRD) Amer 73 mL/min >60 [facility] Comment on above: GFR Calc Estimated GFR (MDRD) Non-Af Amer 60 mL/min >60 [facility] Comment on above: Non- GFR Calc Vitamin D 25-Hydroxy 28.0 ng/mL [facility] Comment on above: Vitamin D 25(OH) Sta tus Range Deficiency <20 ng/mL (50nmol/L) Insufficiency 20 - 30 ng/mL (50 - 75 nmol/L) Sufficiency 30 - 100 ng/mL (75 - 250 nmol/L) Toxicity >100 ng/mL (>250 nmol/L) Serum or plasma calcium jimbo urement (mass/volume)Ordered By: Christiano Macedo on 10-06-2022 Calcium [Mass/Vol] 9.5 mg/dL 8.5-10.1 [facility] Serum or plasma cholesterol in HDL measurement (mass/volume)Ordered By: Christiano Macedo on 10-06-2022 Cholesterol in HDL [Mass/Vol] 93 mg/dL >40 [facility] Comment on above: The drugs N-Acetylcy steine and Metamizole may falsely depress this assay. Reference Range HDL <40 mg/dL Low HDL Cholesterol HDL >or= 60 mg/dL High HDL Cholesterol Serum or plasma cholesterol in VLDL measurement (mass/volume)Ordered By: Christiano Macedo on 10-06-2022 Cholesterol in VLDL [Mass/Vol] 17 mg/dL 5-40 [facility] Serum or plasma creatinine m easurement (mass/volume)Ordered By: Christiano Macedo on 10-06-2022 Creatinine [Mass/Vol] 0.97 mg/dL 0.55-1.02 [facility] Comment on above: The validity of the calculated GFR & GFRAA in patients over 70 years has not been determined. Clinical correlation is essential. Serum or plasma low density lipoprotein (LDL) cholesterol measurement (mass/volume)Ordered By: Christiano Macedo on 10-06-2022 Cholesterol in LDL [Mass/Vol] 76 mg/dL 0-130 [facility] Serum or plasma urea nitroge n measurement (mass/volume)Ordered By: Christiano Macedo on 10-06-2022 Urea nitrogen [Mass/Vol] 19 mg/dL 7-18 [facility] Thin prep Papanicolaou smear with manual screeningOrdered By: Christiano Macedo on 10-06-2022 Thin prep Papanicolaou smear with manual screening 4 5-15 [facility] Basophil percentageon 2021 Chloride [Moles/Vol] 110 mmol/L 98-107 [facility] Work Phone: Cholesterol [Mass/Vol] 155 mg/dL <200 [facility] Work Phone: Comment on above: <200 mg/dL Desirable 200-240 mg/dL Borderline >240 mg/dL High Risk Glucose [Mass/Vol] 87 mg/dL 74-106 [facility] Work Phone: Potassium [Moles/Vol] 3.7 mmol/L 3.5-5.1 [facility] Work Phone: Sodium [Moles/Vol] 142 mmol/L 136-145 [facility] Work Phone: Triglyceride [Mass/Vol] 58 mg/dL <199 [facility] Work Phone: Comment on above: The drugs N-Acetylcy steine and Metamizole may falsely depress this assay.Serum Triglycerides Reference Interval Normal <150 mg/dL Borderline high 150 - 199 mg/dL High 200 - 499 mg/dL Very High > or = 500 mg/dL Laboratory - Chemistry and C hemistry - challengeon 03-25-2022 CO2 [Moles/Vol] 27.0 mmol/L 21.0-32.0 [facility] Work Phone: Urea nitrogen/Creatinine [Mass ratio] 20.8 mg/mg 10-20 [facility] Work Phone: No Panel Informationon 03-25 Estimated GFR (MDRD) Amer 70 mL/min >60 [facility] Work Phone: Comment on above: GFR Calc Estimated GFR (MDRD) Non-Af Amer 58 mL/min >60 [facility] Work Phone: Comment on above: Non- GFR Calc Serum or plasma calcium jimbo urement (mass/volume)on 03-25-2022 Calcium [Mass/Vol] 9.0 mg/dL 8.5-10.1 [facility] Work Phone: Serum or plasma cholesterol in HDL measurement (mass/volume)on 03-25-2022 Cholesterol in HDL [Mass/Vol] 83 mg/dL >40 [facility] Work Phone: Comment on above: The drugs N-Acetylcy steine and Metamizole may falsely depress this assay. Reference Range HDL <40 mg/dL Low HDL Cholesterol HDL >or= 60 mg/dL High HDL Cholesterol Serum or plasma cholesterol in VLDL measurement (mass/volume)on 03-25-2022 Cholesterol in VLDL [Mass/Vol] 12 mg/dL 5-40 [facility] Work Phone: Serum or plasma creatinine m easurement (mass/volume)on 03-25-2022 Creatinine [Mass/Vol] 1.01 mg/dL 0.55-1.02 [facility] Work Phone: Comment on above: The validity of the calculated GFR & GFRAA in patients over 70 years has not been determined. Clinical correlation is essential. Serum or plasma low density lipoprotein (LDL) cholesterol measurement (mass/volume)on 03-25-2022 Cholesterol in LDL [Mass/Vol] 60 mg/dL 0-130 [facility] Work Phone: Serum or plasma urea nitroge n measurement (mass/volume)on 03-25-2022 Urea nitrogen [Mass/Vol] 21 mg/dL 7-18 [facility] Work Phone: Thin prep Papanicolaou smear with manual screeningon 03-25-2022 Thin prep Papanicolaou smear with manual screening 5 5-15 [facility] Work Phone: Basophil percentageon 2021 Chloride [Moles/Vol] 107 mmol/L 98-[address] [facility] Work Phone: Cholesterol [Mass/Vol] 243 mg/dL <200 [place] [facility] Work Phone: Comment on above: <200 mg/dL Desirable 200-240 mg/dL Borderline >240 mg/dL High Risk Glucose [Mass/Vol] 94 mg/dL 74-106 [place] [facility] Work Phone: Potassium [Moles/Vol] 3.4 mmol/L 3.5-5.1 [facility] Work Phone: Sodium [Moles/Vol] 140 mmol/L 136-145 [facility] Work Phone: Triglyceride [Mass/Vol] 88 mg/dL <199 [facility] Work Phone: Comment on above: The drugs N-Acetylcy steine and Metamizole may falsely depress this assay.Serum Triglycerides Reference Interval Normal <150 mg/dL Borderline high 150 - 199 mg/dL High 200 - 499 mg/dL Very High > or = 500 mg/dL Laboratory - Chemistry and C hemistry - challengeon 09-28-2021 CO2 [Moles/Vol] 28.0 mmol/L 21.0-32.0 [facility] Work Phone: Urea nitrogen/Creatinine [Mass ratio] 18.0 mg/mg 10-20 [facility] Work Phone: No Panel Informationon 09-28 Estimated GFR (MDRD) Amer 63 mL/min >60 [facility] Work Phone: Comment on above: GFR Calc Estimated GFR (MDRD) Non-Af Amer 52 mL/min >60 [facility] Work Phone: Comment on above: Non- GFR Calc Vitamin D 25-Hydroxy 38.4 ng/mL [facility] Work Phone: Comment on above: Vitamin D 25(OH) Sta tus Range Deficiency <20 ng/mL (50nmol/L) Insufficiency 20 - 30 ng/mL (50 - 75 nmol/L) Sufficiency 30 - 100 ng/mL (75 - 250 nmol/L) Toxicity >100 ng/mL (>250 nmol/L) Serum or plasma calcium jimbo urement (mass/volume)on 09-28-2021 Calcium [Mass/Vol] 9.4 mg/dL 8.5-10.1 [facility] Work Phone: Serum or plasma cholesterol in HDL measurement (mass/volume)on 09-28-2021 Cholesterol in HDL [Mass/Vol] 83 mg/dL >40 [facility] Work Phone: Comment on above: The drugs N-Acetylcy steine and Metamizole may falsely depress this assay. Reference Range HDL <40 mg/dL Low HDL Cholesterol HDL >or= 60 mg/dL High HDL Cholesterol Serum or plasma cholesterol in VLDL measurement (mass/volume)on 09-28-2021 Cholesterol in VLDL [Mass/Vol] 18 mg/dL 5-40 [facility] Work Phone: Serum or plasma creatinine m easurement (mass/volume)on 09-28-2021 Creatinine [Mass/Vol] 1.11 mg/dL 0.55-1.02 [facility] Work Phone: Comment on above: The validity of the calculated GFR & GFRAA in patients over 70 years has not been determined. Clinical correlation is essential. Serum or plasma low density lipoprotein (LDL) cholesterol measurement (mass/volume)on 09-28-2021 Cholesterol in LDL [Mass/Vol] 142 mg/dL 0-130 [facility] Work Phone: Serum or plasma urea nitroge n measurement (mass/volume)on 09-28-2021 Urea nitrogen [Mass/Vol] 20 mg/dL 7-18 [facility] Work Phone: Thin prep Papanicolaou smear with manual screeningon 09-28-2021 Thin prep Papanicolaou smear with manual screening 5 5-15 [facility] Work Phone: Basic Metabolic Panelon 01-14 Anion gap [Moles/Vol] 11 mmol/L 10 - 2 0 mmol/L [facility] Calcium [Mass/Vol] 8.9 mg/dL 8.4 - 10. 2 mg/dL [facility] Chloride [Moles/Vol] 114 mmol/L High 98 - 10 8 mmol/L [facility] Creatinine [Mass/Vol] 0.96 mg/dL 0.6 - 1.2 mg/dL [facility] GFR/1.73 sq M predicted among non-blacks MDRD (S/P/Bld) [Vol rate/Area] The eGFR should be used for monitoring renal function only and not for medication dosing. [facility] GFR/1.73 sq M.predicted CKD-EPI (S/P/Bld) [Vol rate/Area] 62 >=60 mL/min/1.73 m2 [facility] Glucose [Mass/Vol] 88 mg/dL 65 - 99 mg/dL [facility] HCO3 [Moles/Vol] 24 mmol/L 21 - 32 mmol/L [facility] Interpretation and review of laboratory results Abnormal [facility] Potassium [Moles/Vol] 4.2 mmol/L 3.5 - 5.1 mmol/L [facility] Sodium [Moles/Vol] 145 mmol/L 135 - 145 mmol/L [facility] Urea nitrogen [Mass/Vol] 11 mg/dL 8 - 25 mg/dL [facility] Urea nitrogen/Creatinine [Mass ratio] 11.5 mg/mg [facility] CBCon 02-08-2019 Erythrocyte distribution width (RBC) [Entitic vol] 13.3 % 11.6 - 14.8 % [facility] Hematocrit (Bld) [Volume fraction] 34.3 % Low 36 - 46 % [facility] Hemoglobin (Bld) [Mass/Vol] 11.3 g/dL Low 12 - 16 g/dL [facility] Interpretation and review of laboratory results Abnormal [facility] MCH (RBC) [Entitic mass] 30.9 pg 26 - 34 pg [facility] MCHC (RBC) [Mass/Vol] 32.9 g/dL 31 - 37 g/dL [facility] MCV (RBC) [Entitic vol] 93.7 fL 80 - 100 fL [facility] Nucleated RBC (Bld) [#/Vol] 0.00 10*3/uL [facility] Nucleated RBC/100 WBC (Bld) [Ratio] 0.0 % [facility] Platelet mean volume (Bld) [Entitic vol] 9.6 fL 9 - 15.5 fL [facility] Platelets (Bld) [#/Vol] 264 10*3/uL [facility] RBC (Bld) [#/Vol] 3.66 10*6/uL Low [facility] WBC (Bld) [#/Vol] 5.49 10*3/uL [facility] H. Pylori Teston [address] Pass [facility] Interpretation and review of laboratory results Abnormal [facility] Lot Number [id number] [facility] POC H. Pylori Positive Abnormal Negative [facility] Mamm Screen w/CAD if perf ormed bilaton 02-09-2018 [place] Mamm Screen w/CAD if performed bilat Exam Date/Time:02/09/2018 13:18 EDTReason for Exam:SCREENINGReportSTU DY:Digital mammography screening; 02/09/2018 1:18 pmACCESSION NUMBER(S):[id number] CLINICIAN:Heraclio AlvarezICATION:Screen ing.COMPARISON:Comparis on is made to prior digital mammograms dated 03/25/2016 and 07/30/2014FINDINGS:CC and MLO 2D digital mammographic images of the bilateral breasts were obtained.There are areas of scattered fibroglandular tissue. No discrete mass or focal asymmetry is identified. No suspicious microcalcifications or foci of architectural distortion are seen. There has been no significant change.This study was interpreted with CAD.IMPRESSION:No mammographic evidence of malignancy.BI-RADS CATEGORY:Category: 1 - Negative.Recommendation : Normal Interval Follow-up, Under Age 40.Recall Interval: 12 Months.Breast Density: Scattered Fibroglandular Density. FINAL REPORT Dictated: 02/09/2018 1:27 pm Zulema DOUGLAS, Jefry CSigned (Electronic Signature): 02/09/2018 1:27 pmSigned by: Jefry Poole MD Technologist: Sarahment: BI-RADS Category 1-NegativeRecommendatio n: Normal interval follow-up Normal [facility] PROGRESSon 02-02-2018 [facility] NOTES Normal [facility] PROGRESSon 08-07-2017 [facility] NOTES Normal [facility] Vital Signs Date Time Vital Sign Value Performing Clinician Facility 11-09-2022 09:01-0400 Body temperature 98 [degF] Dr. Christiano Macedo Work Phone: [facility] 11-09-2022 09:01-0400 Diastolic blood pressure 70 mm[Hg] Dr. Christiano Macedo Work Phone: [facility] 11-09-2022 09:01-0400 Heart rate 81 /min Dr. Christiano Macedo Work Phone: [facility] 11-09-2022 09:01-0400 Respiratory rate 16 /min Dr. Christiano Macedo Work Phone: [facility] 11-09-2022 09:01-0400 SaO2% (BldA) [Mass fraction] 97 % Dr. Christiano Macedo Work Phone: [facility] 11-09-2022 09:01-0400 Systolic blood pressure 104 mm[Hg] Dr. Christiano Macedo Work Phone: [facility] 10-26-2022 10:52-0400 Body height 152.[address] Christiano Macedo Work Phone: [facility] 10-26-2022 10:52-0400 Body mass index (BMI) [Ratio] 23.4 kg/m2 Dr. Christiano Macedo Work Phone: [facility] 10-26-2022 10:52-0400 Body weight 54.[address] Christiano Macedo Work Phone: [facility] 01-24-2020 09:05-0400 BMI (Body Mass Index) 25 kg/m2 [facility] 01-24-2020 09:05-0400 Body weight 58.06 kg [facility] 01-24-2020 09:05-0400 BP Diastolic 90 mm[Hg] [facility] 01-24-2020 09:05-0400 BP Systolic 150 mm[Hg] [facility] 01-24-2020 09:05-0400 Height 152.4 cm [facility] 01-24-2020 09:05-0400 Pulse (Heart Rate) 66 /min [facility] 01-24-2020 09:05-0400 Respiratory Rate 16 /min [facility] 03-06-2019 10:31-0400 BMI (Body Mass Index) 20.06 kg/m2 [facility] 03-06-2019 10:31-0400 Body Temperature 98.29 [degF] [facility] 03-06-2019 10:31-0400 Body weight 45.04 kg [facility] 03-06-2019 10:31-0400 BP Diastolic 72 mm[Hg] [facility] 03-06-2019 10:31-0400 BP Systolic 106 mm[Hg] Javiiain Weinstein [facility] 03-06-2019 10:31-0400 [facility]9 [facility] 03-06-2019 10:31-0400 Pulse (Heart Rate) 64 /min Javiiain Weinstein [facility] 03-06-2019 10:31-0400 Pulse Oximetry 97 % [facility] 02-19-2019 13:09-0400 Body Temperature 98.91 [degF] [facility] 02-19-2019 13:09-0400 BP Diastolic 75 mm[Hg] [facility] 02-19-2019 13:09-0400 BP Systolic 151 mm[Hg] [facility] 02-19-2019 13:09-0400 Pulse (Heart Rate) 67 /min [facility] 02-19-2019 13:09-0400 Pulse Oximetry 100 % [facility] 02-19-2019 08:31-0400 Respiratory Rate 14 /min [facility] 02-18-2019 08:19-0400 BMI (Body Mass Index) 21.73 kg/m2 [facility] 02-18-2019 08:19-0400 Body weight 48.8 kg [facility] 02-18-2019 08:190400 Height 149.9 cm [facility] 02-14-2019 08:21-0400 BMI (Body Mass Index) 21.75 kg/m2 [facility] 02-14-2019 08:21-0400 Body Temperature 98.49 [degF] [facility] 02-14-2019 08:21-0400 Body weight 48.85 kg [facility] 02-14-2019 08:21-0400 BP Diastolic 84 mm[Hg] [facility] 02-14-2019 08:21-0400 BP Systolic 144 mm[Hg] [facility] 02-14-2019 08:21-0400 Height 149.9 cm [facility] 02-14-2019 08:21-0400 Pulse (Heart Rate) 62 /min [facility] 02-14-2019 08:21-0400 Pulse Oximetry 100 % [facility] 02-08-2019 08:08-0400 BMI (Body Mass Index) 21.81 kg/m2 Room [facility] 02-08-2019 08:08-0400 Body weight 48.99 kg Room [facility] 02-08-2019 08:08-0400 Height 149.9 cm [facility] 02-08-2019 08:04-0400 BP Diastolic 75 mm[Hg] [facility] 02-08-2019 08:04-0400 BP Systolic 147 mm[Hg] [facility] 02-08-2019 08:04-0400 Pulse (Heart Rate) 53 /min [facility] 02-08-2019 08:04-0400 Pulse Oximetry 100 % [facility] 01-11-2019 11:17-0400 BMI (Body Mass Index) 21.09 kg/m2 [facility] 01-11-2019 11:17-0400 Body weight 48.99 kg [facility] 01-11-2019 11:17-0400 BP Diastolic 86 mm[Hg] [facility] 01-11-2019 11:17-0400 BP Systolic 134 mm[Hg] [facility] 01-11-2019 11:17-0400 Height 152.4 cm [facility] 01-11-2019 11:17-0400 Pulse (Heart Rate) 56 /min [facility] 01-11-2019 11:17-0400 Respiratory Rate 18 /min [facility] 01-09-2019 10:49-0400 BMI (Body Mass Index) 21.79 kg/m2 [facility] 01-09-2019 10:49-0400 Body Temperature 98.8 [degF] [facility] 01-09-2019 10:49-0400 Body weight 48.94 kg [facility] 01-09-2019 10:49-0400 BP Diastolic 82 mm[Hg] [facility] 01-09-2019 10:49-0400 BP Systolic 157 mm[Hg] [facility] 01-09-2019 10:49-0400 Height 149.9 cm [facility] 01-09-2019 10:49-0400 Pulse (Heart Rate) 62 /min [facility] 01-09-2019 10:49-0400 Pulse Oximetry 98 % [facility] 12-11-2018 11:00-0400 BP Diastolic 61 mm[Hg] [facility] 12-11-2018 11:00-0400 BP Systolic 123 mm[Hg] [facility] 12-11-2018 11:00-0400 Pulse (Heart Rate) 45 /min [facility] 12-11-2018 11:00-0400 Pulse Oximetry 100 % [facility] 12-11-2018 11:00-0400 Respiratory Rate 19 /min [facility] 12-11-2018 07:58-0400 BMI (Body Mass Index) 21.37 kg/m2 [facility] 12-11-2018 07:58-0400 Body Temperature 97.81 [degF] [facility] 12-11-2018 07:58-0400 Body weight 49.22 kg [facility] 12-11-2018 07:58-0400 Height 151.8 cm [facility] 11-07-2018 13:59-0400 BMI (Body Mass Index) 21.29 kg/m2 [facility] 11-07-2018 13:59-0400 Body Temperature 99.3 [degF] [facility] 11-07-2018 13:59-0400 BP Diastolic 87 mm[Hg] [facility] 11-07-2018 13:59-0400 BP Systolic 161 mm[Hg] [facility] 11-07-2018 13:59-0400 Height 151.8 cm [facility] 11-07-2018 13:59-0400 Pulse (Heart Rate) 82 /min [facility] 11-07-2018 13:59-0400 Pulse Oximetry 99 % [facility] 11-07-2018 13:59-0400 Weight 49.03 kg [facility] 10-10-2018 08:40-0400 BP Diastolic 69 mm[Hg] [facility] 10-10-2018 08:40-0400 BP Systolic 119 mm[Hg] [facility] 10-10-2018 08:40-0400 Pulse (Heart Rate) 62 /min [facility] 10-10-2018 08:40-0400 Pulse Oximetry 99 % [facility] 10-10-2018 08:40-0400 Respiratory Rate 14 /min [facility] 10-10-2018 08:13-0400 Body Temperature 98.01 [degF] [facility] 10-10-2018 07:21-0400 BMI (Body Mass Index) 20.7 kg/m2 [facility] 10-10-2018 07:21-0400 Height 152.4 cm [facility] 10-10-2018 07:21-0400 Weight 48.08 kg [facility] 09-19-2018 10:16-0400 BMI (Body Mass Index) 20.8 kg/m2 [facility] 09-19-2018 10:16-0400 Body Temperature 97.7 [degF] [facility] 09-19-2018 10:16-0400 BP Diastolic 79 mm[Hg] [facility] 09-19-2018 10:16-0400 BP Systolic 165 mm[Hg] [facility] 09-19-2018 10:16-0400 Height 152.4 cm [facility] 09-19-2018 10:16-0400 Pulse (Heart Rate) 67 /min [facility] 09-19-2018 10:16-0400 Pulse Oximetry 98 % [facility] 09-19-2018 10:16-0400 Weight 48.31 kg [facility] Encounters Encounter Date Encounter Type Care Provider Facility Start: 11-14-2024 ambulatory Christiano Macedo Facility:[facility] Start: 11-07-2024 End: 11-07-[address] Christiano Macedo MD Work Phone: -Outpatient Bone Densitometry Start: 11-07-2024 End: 11-07-[address] Christiano Macedo MD -Outpatient Bone Densitometry Work Phone: Start: 11-07-2024 End: 11-07-2024 ambulatory Christiano Macedo Facility:[facility] Start: 10-15-2024 Encounter for genera l adult medical examination without abnormal findings Christiano Macedo [facility] Start: 10-10-2024 End: 10-10-[address] Christiano Macedo MD Work Phone: [facility] Work Phone: Start: 10-10-2024 End: 10-10-[address] Christiano Macedo MD -Laboratory [facility] Start: 10-10-2024 End: 10-10-2024 ambulatory Christiano Macedo Facility:[facility] Start: 07-08-2024 End: 07-08-[address] Tavo Enriquez MD -Laboratory [place] Work Phone: Start: 07-08-2024 End: 07-08-2024 ambulatory Christiano Macedo Facility:[facility] Start: 01-29-2024 End: 01-29-2024 ambulatory Tavo Enriquez Facility:[facility] Start: 05-01-2023 End: 05-01-2023 ambulatory [facility] Work Phone: Start: 05-01-2023 End: 05-01-2023 Patient encounter procedure [facility] Start: 03-24-2023 End: 03-24-2023 ambulatory [facility] Work Phone: Start: 03-24-2023 End: 03-24-2023 Patient encounter procedure [facility] Work Phone: Start: 11-09-2022 Non-patient / Non-visit Dr. Chuckie Macedo Work Phone: [facility] Start: 11-09-2022 End: 11-09-2022 Admission to same day surgery center Dr. Christiano Macedo Work Phone: [facility]-Endoscopy Work Phone: Start: 10-26-2022 Non-patient / Non-visit Dr. Chuckie Macedo Work Phone: [facility] Work Phone: Start: 10-06-2022 End: 10-06-[address] Christiano Macedo Work Phone: [facility] Work Phone: Start: 10-06-2022 End: 10-06-[address] Christiano Macedo Work Phone: [facility] Start: 03-25-2022 End: 03-25-2022 ambulatory [facility] Work Phone: Start: 03-25-2022 End: 03-25-2022 Patient encounter procedure [facility] Start: 10-26-2021 End: 10-26-2021 Patient encounter procedure [facility]-Outpatient Bone Densitometry Start: 09-28-2021 End: 09-28-2021 Patient encounter procedure [facility] Start: 06-22-2020 End: 06-22-2020 Orders Only Lis Solomon Work Phone: [facility] Start: 01-24-2020 End: 01-24-2020 Office outpatient visit 15 minutes Ramsey Anaya Work Phone: [facility] Neurology Comment on above: Intractable headache , unspecified chronicity pattern, unspecified headache type Start: 03-06-2019 End: 03-06-2019 Patient encounter procedure JAVI SINGHTOMMY [facility] Start: 03-06-2019 End: 03-06-2019 Postop follow up visit related to original px Javi Weinstein Work Phone: [facility] Comment on above: Status post laparosc opic Shanthi fundoplication (Primary Dx) Start: 02-18-2019 End: 02-19-2019 Evaluation and management of inpatient [facility] Start: 02-18-2019 End: 02-19-2019 Evaluation and management of inpatient [facility] Work Phone: [facility] Comment on above: Slipped Shanthi fundo plication; Hiatal hernia with GERD without esophagitis Start: 02-14-2019 End: 02-14-2019 Patient encounter procedure [facility] Start: 02-14-2019 End: 02-14-2019 Office outpatient visit 25 minutes [facility] Work Phone: [facility] Comment on above: Slipped Shanthi fundo plication (Primary Dx); Hiatal hernia with GERD without esophagitis Start: 02-08-2019 End: 02-12-2019 Patient encounter procedure [facility] Start: 02-08-2019 End: 02-08-2019 Patient encounter procedure [facility] Work Phone: [facility] Preadmission Testing Comment on above: Preop testing (Prima ry Dx) Start: 01-11-2019 End: 01-11-2019 Office outpatient visit 15 minutes Ramsey Anaya Work Phone: [facility] Neurology Comment on above: Intractable headache , unspecified chronicity pattern, unspecified headache type Start: 01-09-2019 Patient encounter procedure [facility] Start: 01-09-2019 End: 01-09-2019 Office outpatient visit 25 minutes [facility] Comment on above: Slipped Shanthi fundo plication (Primary Dx); Hiatal hernia with GERD without esophagitis Start: 12-11-2018 End: 12-11-2018 Patient encounter procedure [facility] Start: 12-11-2018 End: 12-11-2018 Subsequent hospital visit by physician Crow Ramires Work Phone: [facility] Endoscopy Comment on above: Heartburn; Gaseous regurgitation; Abdominal pain, epigastric; History of Shanthi fundoplication; Heartburn; Gaseous regurgitation; Abdominal pain, epigastric; History of Shanthi fundoplication; Slipped Shanthi fundoplication; Helicobacter pylori gastritis; Reflux esophagitis Start: 11-13-2018 End: 11-13-2018 Karin Calix [facility] Neurology Comment on above: Intractable headache , unspecified chronicity pattern, unspecified headache type Start: 11-07-2018 End: 11-07-2018 Patient encounter procedure [facility] Start: 11-07-2018 End: 11-07-2018 Office outpatient visit 25 minutes [facility] Work Phone: [facility] Comment on above: Heartburn (Primary D x); Gaseous regurgitation; Abdominal pain, epigastric; History of Shanthi fundoplication Start: 10-10-2018 End: 10-10-2018 Patient encounter procedure AVELINA HAINES [facility] Start: 10-10-2018 End: 10-10-2018 Patient encounter procedure Avelina Haines Work Phone: [facility] Periop Comment on above: Gastroesophageal ref lux disease, esophagitis presence not specified; Slipped Shanthi fundoplication Start: 09-20-2018 Patient encounter procedure AVELINA HAINES [facility] Start: 09-19-2018 End: 09-19-2018 Patient encounter procedure HERACLIO GREEN [facility] Start: 09-19-2018 End: 09-19-2018 Office outpatient new 45 minutes Heraclio Green Work Phone: [facility] Comment on above: Gastroesophageal ref lux disease, esophagitis presence not specified (Primary Dx) Start: 09-11-2018 Patient encounter procedure AVELINA HAINES [facility] Start: 02-09-2018 End: 02-10-2018 Patient encounter Heraclio Carol Green Facility:[facility] Start: 02-02-2018 Patient encounter [facility] Start: 08-07-2017 Patient encounter [facility] Procedures Date Procedure Procedure Detail Performing Clinician Start: 11-07-2024 Dual energy X-ray absorptiometry Dr. Christiano Macedo MD Work Phone: Start: 11-07-2024 Screening mammography Kathi Macedo MD Work Phone: Start: 03-24-2023 Plain x-ray of pelvi s and lower extremity Start: 11-09-[address] Christiano wei Work Phone: Start: 10-26-2021 Dual energy X-ray absorptiometry Start: 10-26-2021 Screening mammography Start: 02-18-2019 End: 02-18-2019 FUNDOPLICATION SHANTHI LAPAROSCOPIC Crow Andrea Ramires Work Phone: Start: 02-08-2019 Basic metabolic 2000 panel - Serum or Plasma Yaritza Green Work Phone: Start: 02-08-2019 Complete blood count (hemogram) panel - Blood by Automated count Yaritza Green Work Phone: Start: 12-11-2018 Cul bact aerobic add l meths definitive ea isol Crow Ramires Work Phone: Start: 12-11-2018 Endoscopy of esophagus Crow Ramires Work Phone: Plan of Treatment Date Care Activity Detail Author Start: 11-09-2022 Patient discharge [facility] Start: 01-29-2021 End: 01-29-2021 Office Visit 01/29/2021 Office Visit Neurology Ramsey Anaya MD [address] [place] [address] [phone] [facility] Neurology Start: 02-20-2020 Pneumococcal vaccination PNEUMOCOCCAL VACCINE AGE 65+ (2 of 2 - PPSV23) [facility] Start: 01-14-2020 Influenza vaccination INFLUENZA VACCINE (#1) [facility] Start: 01-14-2020 Influenza vaccination given Sequential Influenza Vacci ne (#1) [facility] Start: 01-10-2020 End: 01-10-2020 Office Visit 01/10/2020 Office Visit Neurology Ramsey Anaya MD [address] [place] [address] [phone] [facility] Neurology Start: 03-06-2019 End: 03-06-2019 Office Visit 03/06/2019 Office Visit Heartburn Crow Ramires MD [address] [place] [address] Medical [address] [place] [phone] [facility] Start: 02-18-2019 End: 02-18-2019 Hospital Encounter [facility] Periop Comment on above: Slipped Shanthi fundoplication; Hiatal hernia with GERD without esophagitis LAPAROSCOPIC REDO HI ATAL HERNIA REPAIR WITH MESH AND REDO SHANTHI FUNDOPLICATION Start: 02-18-2019 End: 02-18-2019 Hospital Encounter [facility] Periop Comment on above: Slipped Shanthi fundoplication; Hiatal hernia with GERD without esophagitis LAPAROSCOPIC REDO HI ATAL HERNIA REPAIR WITH MESH AND REDO SHANTHI FUNDOPLICATION Start: 02-14-2019 End: 02-14-2019 Office Visit 02/14/2019 Office Visit Heartburn Crow Ramires MD [address] [place] [address] [address] [facility] Start: 02-08-2019 End: 02-08-2019 Office Visit [facility] Preadmission Testing Start: 01-13-2019 Influenza vaccination INFLUENZA VACCINE (#1) [facility] Start: 01-13-2019 Influenza vaccination given [facility] Start: 01-09-2019 End: 01-09-2019 Office Visit 01/09/2019 Office Visit HeartCrow Meneses MD [address] [place] [address] [address] [facility] Start: 12-11-2018 End: 12-11-2018 Surgery 12/11/2018 Surgery Crow Ramires MD [address] [place] [address] [address] ESOPHAGOGASTRODUODENOSCOPY WITH ENDOFLIP AND BIOPSY [facility] End[facility] Comment on above: ESOPHAGOGASTRODUODENOSCOPY WITH ENDOFLIP AND BIOPSY Start: 12-11-2018 End: 12-11-2018 Hospital [facility] Endoscopy Comment on above: Heartburn; Gaseous regurgitation; Abdominal pain, epigastric; History of Shanthi fundoplication ESOPHAGEAL MANOMETRY Start: 10-10-2018 Hospital Encounter [facility] Periop Comment on above: ESOPHAGOGASTRODUODENOSCOPY Start: 2018 Pneumococcal vaccination [facility] Start: 09-06-2003 Administration of herpes zoster vaccine Zoster Vaccines (1 of 2) [facility] Start: 09-06-2003 Colonoscopy [facility] Start: 09-06-2003 Screening for malignant neoplasm of colon [facility] Start: 09-06-2003 Zoster vaccine hzv live for subcutaneous use ZOSTER (SHINGLES) VACCINE (1 of 2) [facility] Start: 1993 Fasting lipid profile LIPID SCREENING [facility] Start: 1993 Screening mammography MAMMOGRAM SCREENING DISCUSSION [facility] Start: 1974 Screening for malignant neoplasm of cervix [facility] Start: 1972 Third diphtheria, tetanus and acellular pertussis (DTaP) vaccination TDAP (ADULT) [facility] Start: 09-06-1971 Hepatitis C antibody, confirmatory test Hepatitis C Screening [facility] Start: 09-06-1971 Tetanus vaccination TETANUS [facility] Start: 1969 COVID-19 Vaccine (1 of 2) COVID-19 Vaccine (1 of 2) [facility] Start: 1965 Adolescent depression screening assessment Depression Screening (PHQ9) [facility] Start: 1956 History and physical examination, annual for health maintenance Wellness Visit [facility] Start: 1953 Fall risk assessment Falls Risk Assessment [facility] Start: 1953 Hepatitis C antibody, confirmatory test [facility] Start: 1953 Potassium [Moles/Vol] POTASSIUM [facility] Start: 1953 Protein mass conc Mammogram [facility] Start: 1953 Screening for malignant neoplasm of colon Colorectal Cancer Screening: Colonoscopy [facility] Start: 1953 Screening for osteoporosis [facility] Start: 1953 Screening mammography Mammogram [facility] Start: 1953 Tetanus vaccination [facility] 12 lead ECG ECG 12 Lead ECG Routine Preop testing Ordered: 02/08/2019 [facility] Comment on above: Ordered: 02/08/2019 Colonoscopy [facility] Patient referral [facility] Work Phone: Procedure on tissue specimen [facility] Comment on above: Once for 1 Occurrences starting 12/12/19 19, 1 completed Immunizations Immunization Date Immunization Notes Care Provider Kris osborn 03-06-2019 influenza virus vacc ine, unspecified formulation [facility] 02-19-2019 influenza, high dose seasonal, preservative-free [facility] 02-19-2019 pneumococcal conjuga te vaccine, 13 valent [facility] 02-19-2019 pneumococcal vaccine , unspecified formulation [facility] Payers Date Payer Category Payer Self-pay [id number] 2024 Unknown [id number] [facility] [id number] 2018 Unknown [id number] 2018 Unknown [id number] 1. [id number] 2018 Medicare xxxxxxxxxxx [id number] 2018 Medicare [id number] 2018 Medicare [id number] 2018 Unknown 2016 Unknown [id number] 1. [id number] 2015 Unknown [id number] 1953 Unknown [id number] 2.16.8 40.1.659573.3.579.2.903 1953 Unknown [id number] 2.16.8 40.1.559522.3.579.2. 1953 Unknown [id number] 2.16.8 40.1.598310.3.579.2.3 1953 Unknown [id number] 2.16.8 40.1.781820.3.579.2.903 1953 Unknown [id number] 2.16.8 40.1.377511.3.579.2.903 1953 Unknown [id number] 2.16.8 40.1.902042.3.579.2.903 1953 Unknown [id number] 2.16.8 40.1.153894.3.579.2.903 1953 Unknown [id number] 2.16.8 40.1.570349.3.579.2.90 1953 Unknown [id number] 2.16.8 40.1.745078.3.579.2.903 1953 Unknown [id number] 2.16.8 40.1.364546.3.579.2.903 1953 Unknown [id number] 2.16.8 40.1.237175.3.579.2.903 1953 Unknown [id number] 2.16.8 40.1.167036.3.579.2.903 Unknown [id number] 2.16.8 40.1.899558.3.579.2.462 Unknown [id number] 2.16.8 40.1.040826.3.579.2.462 Unknown [id number] 2.16.8 40.1.057818.3.579.2.462 Unknown [id number] 2.16.8 [id number] Unknown [id number] 2.16.8 [id number] Social History Date Type Detail Facility Start: 09-19-2018 End: 11-09-2022 Tobacco smoking status NHIS Never smoker [facility] Start: 09-19-2018 History SDOH Alcohol Frequency 1 [facility] Sex Assigned At Not on file [facility] Start: 01-09-2019 End: 02-14-2019 Alcohol intake Lifetime non-drinker (finding) [facility] Start: 03-06-2019 End: 01-24-2020 Tobacco use and exposure Never used [facility] Start: 01-24-2020 Alcohol intake 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 (finding) [facility] Start: 01-11-2019 Alcohol intake No [facility] Start: 03-12-2019 End: 11-09-2022 Tobacco smoking status NHIS Unknown if ever smoked [facility] Start: 1955 Sex Assigned At Female [facility] NEGATED: Highlighted row [facility] Medical Equipment Procedure Code Equipment Code Equipment Origin al Text Equipment Identifier Dates Mesh 7 X 10cm Resorbable [facility] - Sna [id number] Start: 02-18-2019 Tacker 5mm Singl e Use Absorbatack 30x W/30 Oleg Estevez [id number] Start: 02-18-2019 Goals Date Patient Goal Desired Activity /State Mental Status Date Assessment Result Facility 11-09-2022 Cognitive function Level Of Cons ciousness Awake;Alert;Appropriate;Follow s Commands [facility] Work Phone: Evaluation note Note Date & Type Note Facility Evaluation note No assessment information availa ble [facility] Work Phone: Evaluation note Note Date & Type Note Facility Evaluation note Diagnosis Onset Date Encounter for screening for malignant neoplasm of colon acute [facility] Work Phone: Reason for referral (narrative) Note Date & Type Note Facility Reason for referral (narrative) No reason for referral information available [facility] Work Phone: Summary Purpose Family History No Family History Records Found Relationship Condition Age at Onset Recorded Date/T gabo father Malignant neoplasm Unknown sister Hypertension Unknown Malignant neoplasm Unknown Diabetes mellitus Unknown Advance Directives No Advanced Directives Records FoundDocuments on File Type Date Recorded 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 Advance Directives and Livin g Will 10/10/2018 7:01 AM Documents on File Type Date Recorded 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 Advance Directives and Livin g Will 10/10/2018 7:01 AM Documents on File Type Date Recorded 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 Advance Directives and Livin g Will 02/08/2019 7:21 AM Documents on File Type Date Recorded 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 Advance Directives and Livin g Will 02/18/2019 7:51 AM Latest Code Status on File Code Status Date Activated Date Inactivated Comments Full Code 02/18/2019 12:23 PM Documents on File Type Date Recorded 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 Advance Directives and Livin g Will 02/18/2019 7:51 AM Latest Code Status on File Code Status Date Activated Date Inactivated Comments Full Code 02/18/2019 12:23 PM Documents on File Type Date Recorded 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 Advance Directives and Livin g Will 12/11/2018 7:01 AM Documents on File Type Date Recorded 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 Advance Directives and Livin g Will 12/11/2018 7:01 AM Advance Directive Response Recorded Date/ Time Living Will No March 12 10:17am 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 No March 12, 2019 10:17am Advance Directive Response Recorded Date/ Time Living Will No March 12 9:17am 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 No March 12, 2019 9:17am Advance Directive Response Recorded Date/ Time Living Will No November 04, 2022 2:27pm 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 No November 04 2:27pm Advance Directive Response Recorded Date/ Time Living Will No November 04, 2022 1:27pm 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 No November 04 1:27pm Reason for Referral Status Reason Specialty Diagnoses / Procedures Referred By Contact Referred To Contact Closed General Surgery Diagnoses Gastroesophageal reflux disease, esophagitis presence not specified [facility], [address] [place] [address] Avelina Haines MD [address] [address] History of Present Illness * Avelina Haines MD - 09/19/2018 10:35 AM EDT GENERAL SURGERY H+P / CONSULT - 09/19/18 PATIENT: Maria Elena Alan : 1955 AGE: 63 y.o. SEX: female RACE: [1] PCP: [facility] DO REFERRAL: [facility] DO CHART Reviewed ROS Questionnaire Reviewed Historian Patient Quality Good Accompanied by Her CC I'm having a lot of heartburn HPI Patient states she had moderate to severe heartburn for the past 3 months, every day, burning constantly, not getting worse. She has no appetite due to the heartburn but denies fevers, chills, nausea, emesis, diarrhea, constipation, melena, recent weight loss, chest pain, shortness of breath, or bleeding dyscrasias. She had a Shanthi in 2002 and redo in 2014. REVIEW OF SYSTEMS Systems Reviewed Constitutional, Eyes, ENT/Mouth, CV, Resp, GI, , MS, Skin, Neuro, Psych, Endo, Heme/Lymph, Breasts Symptoms Reviewed Fevers, chills, fatigue, recent weight loss, double vision, cataracts, difficultyswallowing, bloody noses, high blood pressure, chest pain or angina, heart rhythm problems, difficulty breathing with exertion, blood clots, leg swelling, shortness of breath, asthma, cough, sleep apnea, nausea, vomiting, constipation, diarrhea, blood in stools, abdominal pain, appetite changes, blood in urine, painful urination, frequent urination, urine infections, incontinence, arthritis, gout, rashes, skin cancer, seizures, syncope, stroke, weakness, depression, anxiety, high or low blood sugar, thyroid problems, anemia, lymph node enlargement, bleeding problems, breast pain, nipple discharge, breast mass Pertinent Positives High blood pressure, Asthma, Appetite changes Pertinent Negatives PMH / PSH Past Medical History: Diagnosis Date Dehydration 09/2014 requiring hospitalization GERD (gastroesophageal reflux disease) Headache Hiatal hernia Hyperlipidemia Hypertension Tattoo Past Surgical History: Procedure Laterality Date DENTAL SURGERY [address] Kathi [place] Ear piercings ESOPHAGOGASTRODUODENOSCOPY 12/04/2014 Slipped Shanthi.....Dr Haines LAPAROSCOPIC SHANTHI FUNDOPLICATION 04/07/2003 Gerd hiatal hernia......Dr Haines SHANTHI FUNDOPLICATION REVISION LAPAROSCOPIC 01/01/2015 slipped Shanthi with repair of type [address] Haines with Dr Carlisle assist OB History 2 Para 2 Term AB Living SAB 0 TAB Ectopic Multiple Live Births FAM HX Family History Problem Relation Age of Onset COPD Mother Lung cancer Father COPD Father Breast cancer Sister Heart disease Paternal Grandmother Heart disease Paternal Grandfather SOC HX Social History Occupational History 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 ALLERGIES Allergies Allergen Reactions Penicillins EXAM Vitals BP (!) 165/79 (BP Location: Right arm, Patient Position: Sitting, BP Cuff Size: Youth) Pulse 67 Temp 97.7 F (36.5 C) (Oral) Ht 5' Wt 48.3 kg (106 lb 8 oz) SpO2 98% BMI 20.80 kg/m Obesity No ConstAlert, oriented, cooperative, pleasant, NAD HEENTAT/NC, Perr, OC/OP no gross lesions Neckno thyromegaly, no masses, no bruits CorRRR, no murmurs Lungsclear to auscultation, no wheezes or rales Abdsoft, NT, ND, no masses, no HSM, no peritoneal signs Herniano abdominal wall hernias Musc / Backno CVA tenderness Extno LE edema, no UE or LE deformities, normal pulses all extremities NeuroCN's grossly intact, no gross deficits Psychnormal affect Lymphno neck LA Chest / Breast Rectal Skin / OtherNo obvious rashes RADIOLOGY Images reviewed personally ASSESSMENT / PLAN GERD. Previous Shanthi and redo. Recommend EGD. Diff Dx Esophagitis, gastritis, slipped Shanthi, etc. Doubt malignancy. Chronic conditions HTN, Hyperlipidemia - both clinically stable per the patient. Co-morbidities PMH/PSH Yes SH No Age Yes Anticoagulation No Other Risks Explained Bleeding, Infection, Risks of Anesthesia, Injury to the esophagus / stomach. Anticipated Anesthesia MAC Morbidity risk (see co-morbidities above) Low Risks / Rationale / Benefits / Alternatives discussed Yes Informed consent obtained Yes Questions answered Yes X Surgery [facility] ORDERS / F/U Schedule EGD ICD Gastroesophageal reflux disease, esophagitis presence not specified [K21.9] Thank you for the privilege of allowing me to participate in the care of this patient Layout PNSHETH documented in this encounter* Crow Ramires MD - 11/07/2018 2:35 PM EDT [facility] [address]) [facility] [address] [facility] [address] Maria Elena Alan is a 63 y.o. female being seen on 11/07/18 for Chief Complaint Patient presents with Consult chest pain, heartburn, regurgitation, previous Hsanthi fundoplication with redo HPI: Patient Primary Symptoms are: heartburn, epigastric pain and regurgitation Onset of Symptoms: Patient present with a long history of reflux disease. She had a laparoscopic hiatal hernia repair with Shanthi [place] [address]aines. She then had a redo laparoscopic hiatal hernia repair with Shanthi in 2104. About 4 months ago symptoms reappeared and she is now complaining of heartburn, regurgitation, and epigastric pain. Dr. Haines did a EGD 09/2018 that did reveal Slipped Shanthi and she was referred to the [facility]. She is currently not on any heartburn medications. She has taken them in the past few months with no resolution of the symptoms. Frequency of Symptoms: Daily Severity of Symptoms: increasing in severity Sleep Disruption: yes Aggravating Factors: supine Alleviating Factors: Denies Medications Tried: Nexium HRQL SCORE: 22 Past Medical History: Diagnosis Date Dehydration 09/2014 requiring hospitalization GERD (gastroesophageal reflux disease) Headache Hiatal hernia Hyperlipidemia Hypertension Tattoo Past Surgical History: Procedure Laterality Date DENTAL SURGERY [address] Kathi [place] Ear piercings EGD N/A 10/10/2018 Procedure: ESOPHAGOGASTRODUODENOSCOPY; Surgeon: Avelina Haines MD; [facility]; Service: General Surgery ESOPHAGOGASTRODUODENOSCOPY 12/04/2014 Slipped Shanthi.....Dr Haines LAPAROSCOPIC SHANTHI FUNDOPLICATION 04/07/2003 Gerd hiatal hernia......Dr Haines SHANTHI FUNDOPLICATION REVISION LAPAROSCOPIC 01/01/2015 slipped Shanthi with repair of type [address] Haines with Dr Carlisle assist Allergies Allergen Reactions Penicillins Hives Current Outpatient Medications Medication Sig Dispense Refill atorvastatin (LIPITOR) 20 MG tablet Take 20 mg by mouth daily . budesonide-formoterol (SYMBICORT) 160-4.5 mcg/actuation inhaler Inhale 2 puffs 2 (two) times a day . fenofibrate (TRICOR) 54 MG tablet Take 54 mg by mouth daily . losartan-hydrochlorothiazide (HYZAAR) 50-12.5 mg per tablet Take 1 tablet by mouth daily . mirtazapine (REMERON) 30 MG tablet Take 30 mg by mouth nightly . topiramate (TOPAMAX) 50 MG tablet Take 50 mg by mouth 2 (two) times a day . No current facility-administered medications for this visit. Social History Tobacco Use Smoking status: Never Smoker Smokeless tobacco: Never Used Substance Use Topics Alcohol use: Never Frequency: Never Drug use: Never Family History Problem Relation Age of Onset COPD Mother Lung cancer Father COPD Father Breast cancer Sister Heart disease Paternal Grandmother Heart disease Paternal Grandfather REVIEW OF SYSTEMS Pertinent positives are listed in HPI, PMSH, SH, ALL, otherwise all systems reviewed below are negative. The following systems were reviewed: [x] Const (fevers, chills, wt. loss, fatigue) [x] CV (HTN, CP, HUYNH, edema, DVT) [x] Resp (SOB, pleurisy, asthma, apnea) [x] GI (N, V, D, C, M, abd pain, appetite) [x] Musc (back pain, joint stiffness, gout) [x] Neuro (seizures, syncope, paralysis) [x] Psych (depression, anxiety) [x] Endo (hot/cold intol, polyuria[DM]) [x] Hem/Lymph (Anemia, LA, bleeding) [x] Allerg/Immun (seasonal, immuniz) [x] Eyes (diplopia, cataracts) [x] ENT/mouth (dysphagia, epistaxis) [x] (dysuria, hematuria) [x] Skin/Breast (moles, rash, lumps, nipple changes) Pertinent Positives: See HPI Pertinent Negatives: See HPI Physical Exam: BP (!) 161/87 Pulse 82 Temp 99.3 F (37.4 C) (Oral) Ht 4' 11.75 Wt 49 kg (108 lb 1.6 oz) SpO2 99% BMI 21.29 kg/m Body mass index is 21.29 kg/m . Constitutional: Well nourished, well developed person in no acute distress. Ambulates without difficulty. Head: Atraumatic and normocephalic. Face: Within normal limits. Eyes: Pupils equal, round, reactive to light. Sclera white. Mouth: Moist mucous membranes, normal dentation. Neck: supple, trachea midline,no masses, no incisions. Lymphatic: No cervical or inguinal lymphadenopathy. Heart: Regular rate and rhythm. Lungs: Clear to auscultation. Abdomen: Soft, non-distended, non-tender, no heptasplenomegaly, no umbilica, incisional, femoral, or inguinal hernias. Pelvis: Stable, non-tender. Skin: Warm, moist, normal skin turgor. Peripheral Vascular: Palapable carotid, radial, and femoral pulses, no peripheral edema. Neuropsych: Alert and oriented, judgement and insight intact. Normal Gait. Assessment: SNOMED CT(R) 1. Heartburn HEARTBURN 2. Gaseous regurgitation EXCESSIVE BELCHING 3. Abdominal pain, epigastric EPIGASTRIC PAIN No orders of the defined types were placed in this encounter. Plan: EGD with Biopsy, Endoflip, high resolution Manometry with Impedance and Interpretation Crow Ramires MD * Javi Weinstein RN - 11/07/2018 2:09 PM EDT [facility] [address] ([address]) [facility] [address] [facility] [address] Patient Name: Maria Elena Alan Age: 63 y.o. Gender: female Referring Physician: No ref. provider found Chief Complaint Patient presents with Consult chest pain, heartburn, regurgitation, previous Shanthi fundoplication with redo HPI: Patient Primary Symptoms are: heartburn, epigastric pain and regurgitation Onset of Symptoms: Patient present with a long history of reflux disease. She had a laparoscopic hiatal hernia repair with Shanthi [place] [address] Haines. She then had a redo laparoscopic hiatal hernia repair with Shanthi in 2104. About 4 months ago symptoms reappeared and she is now complaining of heartburn, regurgitation, and epigastric pain. Dr. Haines did a EGD 09/2018 that did reveal Slipped Shanthi and she was referred to the [facility]. She is currently not on any heartburn medications. She has taken them in the past few months with no resolution of the symptoms. Frequency of Symptoms: Daily Severity of Symptoms: increasing in severity Sleep Disruption: yes Aggravating Factors: supine Alleviating Factors: Denies Medications Tried: Nexium HRQL SCORE: 22 Past Medical History: Past Medical History: Diagnosis Date Dehydration 09/2014 requiring hospitalization GERD (gastroesophageal reflux disease) Headache Hiatal hernia Hyperlipidemia Hypertension Tattoo Past Surgical History: Past Surgical History: Procedure Laterality Date DENTAL SURGERY [address] Kathi [place] Ear piercings EGD N/A 10/10/2018 Procedure: ESOPHAGOGASTRODUODENOSCOPY; Surgeon: Avelina Haines MD; Location: [facility]; Service: General Surgery ESOPHAGOGASTRODUODENOSCOPY 12/04/2014 Slipped Shanthi.....Dr Haines LAPAROSCOPIC SHANTHI FUNDOPLICATION 04/07/2003 Gerd hiatal hernia......Dr Haines SHANTHI FUNDOPLICATION REVISION LAPAROSCOPIC 01/01/2015 slipped Shanthi with repair of type [address] Haines with Dr Carlisle assist Medications: Current Outpatient Medications: atorvastatin (LIPITOR) 20 MG tablet, Take 20 mg by mouth daily ., Disp: , Rfl: budesonide-formoterol (SYMBICORT) 160-4.5 mcg/actuation inhaler, Inhale 2 puffs 2 (two) times a day., Disp: , Rfl: fenofibrate (TRICOR) 54 MG tablet, Take 54 mg by mouth daily ., Disp: , Rfl: losartan-hydrochlorothiazide (HYZAAR) 50-12.5 mg per tablet, Take 1 tablet by mouth daily ., Disp: , Rfl: mirtazapine (REMERON) 30 MG tablet, Take 30 mg by mouth nightly ., Disp: , Rfl: topiramate (TOPAMAX) 50 MG tablet, Take 50 mg by mouth 2 (two) times a day ., Disp: , Rfl: Allergies: Allergies: Penicillins Social History: Social History Tobacco Use Smoking Status Never Smoker Smokeless Tobacco Never Used Social History Substance and Sexual Activity Alcohol Use Never Frequency: Never Social History Substance and Sexual Activity Drug Use Never Family History: Family History Problem Relation Age of Onset COPD Mother Lung cancer Father COPD Father Breast cancer Sister Heart disease Paternal Grandmother Heart disease Paternal Grandfather Physical Exam: BP (!) 161/87 Pulse 82 Temp 99.3 F (37.4 C) (Oral) Ht 4' 11.75 Wt 49 kg (108 lb 1.6 oz) SpO2 99% BMI 21.29 kg/m Body mass index is 21.29 kg/m . Javi Weinstein RN documented in this encounter* Crow Ramires MD - 02/14/2019 8:23 AM EDT [facility] [address] ([address]) [facility] [address] [facility] [id number] Maria Elena Alan is a 63 y.o. female being seen on 02/14/19 for Chief Complaint Patient presents with Follow-up slipped Shanthi fundoplication HPI: The patient presents today to update her history and physical prior to undergoing surgery. She underwent an EGD with biopsy, high resolution esophageal manometry, and Endoflip evaluation on 12/11/2018. The EGD revealed a recurrent hiatal hernia with disrupted Shanthi. Manometry showed ineffective esophageal motility and a hiatal hernia. The patient underwent an initial hiatal hernia repair with Shanthi fundoplication by Dr. Haines in 2002. She had a recurrence and underwent repair in December 2014. She been having recurrent symptoms and upon evaluation is found to have another recurrence. Past Medical History: Diagnosis Date Dehydration 09/2014 requiring hospitalization GERD (gastroesophageal reflux disease) H. pylori infection 12/11/2018 Headache Hiatal hernia Hyperlipidemia Hypertension Tattoo Past Surgical History: Procedure Laterality Date DENTAL SURGERY [address] Kathi Pandya [place] Ear piercings EGD N/A 10/10/2018 Procedure: ESOPHAGOGASTRODUODENOSCOPY; Surgeon: Avelina Haines MD; [place] [facility]; Service: General Surgery EGD N/A 12/11/2018 Procedure: ESOPHAGOGASTRODUODENOSCOPY WITH ENDOFLIP AND BIOPSY; Surgeon: Crow Ramires MD; Location: [facility]; Service: General Surgery ESOPHAGEAL MANOMETRY N/A 12/11/2018 Procedure: ESOPHAGEAL MANOMETRY; Surgeon: Crow Ramires MD; Location: [facility]; Service: General Surgery ESOPHAGOGASTRODUODENOSCOPY 12/04/2014 Slipped Shanthi.....Dr Haines LAPAROSCOPIC SHANTHI FUNDOPLICATION 04/07/2003 Gerd hiatal hernia......Dr Haines SHANTHI FUNDOPLICATION REVISION LAPAROSCOPIC 01/01/2015 slipped Shanthi with repair of type [address] Haines with Dr Carlisle assist Allergies Allergen Reactions Penicillins Hives Current Outpatient Medications Medication Sig Dispense Refill atorvastatin (LIPITOR) 20 MG tablet Take 20 mg by mouth daily . budesonide-formoterol (SYMBICORT) 160-4.5 mcg/actuation inhaler Inhale 2 puffs 2 (two) times a day as needed . fenofibrate (TRICOR) 54 MG tablet Take 54 mg by mouth daily . losartan-hydrochlorothiazide (HYZAAR) 50-12.5 mg per tablet Take 1 tablet by mouth daily . mirtazapine (REMERON) 30 MG tablet Take 45 mg by mouth nightly . topiramate (TOPAMAX) 50 MG tablet Take 50 mg by mouth 2 (two) times a day . No current facility-administered medications for this visit. Social History Tobacco Use Smoking status: Never Smoker Smokeless tobacco: Never Used Substance Use Topics Alcohol use: Never Frequency: Never Drug use: Never Family History Problem Relation Age of Onset COPD Mother Lung cancer Father COPD Father Breast cancer Sister Heart disease Paternal Grandmother Heart disease Paternal Grandfather REVIEW OF SYSTEMS Pertinent positives are listed in HPI, PMSH, SH, ALL, otherwise all systems reviewed below are negative. The following systems were reviewed: [x] Const (fevers, chills, wt. loss, fatigue) [x] CV (HTN, CP, HUYNH, edema, DVT) [x] Resp (SOB, pleurisy, asthma, apnea) [x] GI (N, V, D, C, M, abd pain, appetite) [x] Musc (back pain, joint stiffness, gout) [x] Neuro (seizures, syncope, paralysis) [x] Psych (depression, anxiety) [x] Endo (hot/cold intol, polyuria[DM]) [x] Hem/Lymph (Anemia, LA, bleeding) [x] Allerg/Immun (seasonal, immuniz) [x] Eyes (diplopia, cataracts) [x] ENT/mouth (dysphagia, epistaxis) [x] (dysuria, hematuria) [x] Skin/Breast (moles, rash, lumps, nipple changes) Pertinent Positives: See HPI Pertinent Negatives: See HPI Physical Exam: BP 144/84 Pulse 62 Temp 98.5 F (36.9 C) (Oral) Ht 4' 11 Wt 48.9 kg (107 lb 11.2 oz) [id number]% BMI 21.75 kg/m Body mass index is 21.75 kg/m . Constitutional: Well nourished, well developed person in no acute distress. Ambulates without difficulty. Head: Atraumatic and normocephalic. Face: Within normal limits. Eyes: Pupils equal, round, reactive to light. Sclera white. Mouth: Moist mucous membranes, normal dentation. Neck: supple, trachea midline,no masses, no incisions. Lymphatic: No cervical or inguinal lymphadenopathy. Heart: Regular rate and rhythm. Lungs: Clear to auscultation. Abdomen: Soft, non-distended, non-tender, no heptasplenomegaly, no umbilica, incisional, femoral, or inguinal hernias. Pelvis: Stable, non-tender. Skin: Warm, moist, normal skin turgor. Peripheral Vascular: Palapable carotid, radial, and femoral pulses, no peripheral edema. Neuropsych: Alert and oriented, judgement and insight intact. Normal Gait. Assessment: 1. Slipped Shanthi fundoplication 2. Hiatal hernia with GERD without esophagitis No orders of the defined types were placed in this encounter. Plan: I again had a detailed discussion with the patient regarding her diagnosis. All treatment options were discussed in detail. At this point we will proceed with a laparoscopic redo-hiatal hernia repairwith mesh and redo Shanthi fundoplication. Risk, benefits, and alternatives were discussed with the patient detail prior to obtaining consent. Crow Ramires MD documented in this encounter* Javi Weinstein, ROSALBA - 02/19/2019 6:32 AM EDT [facility] PATIENT: Maria Elena Alan DATE / TIME: 02/19/19 6:32 AM POS: Hospital AGE: 63 y.o. : 1955 RACE: [1] SEX: female PCP: Heraclio Green DO REFERRAL: No ref. provider found SUBJECTIVE: Patient sitting up in chair. Denies any pain at this time. Tolerating a clear liquid diet. Denies heartburn, regurgitation, and dysphagia. Ambulated only to bathroom overnight without difficulty. Encouraged to ambulate in hallways this am. OBJECTIVE: BP 129/73 Pulse 74 Temp 98.2 F (36.8 C) (Oral) Resp 16 Ht 4' 11 Wt 48.8 kg (107 lb 9.4 oz) SpO2 97% BMI 21.73 kg/m GENERAL: Appears age appropriate. No acute distress. NEUROLOGICAL: Alert and oriented X 3. Follows commands with extremities x4, equal strength. CARDIOVASCULAR: Regular rate and rhythm. No clicks, rubs, murmurs or gallops noted. No peripheral edema noted. Telemetry NSR. RESPIRATORY: Lungs, clear to auscultation bilaterally. No rhonchi, wheezes or crackles. Respiratoryeffort unlabored without use of accessory muscles. ABDOMINAL: Rounded, soft, appropriately tender, nondistended, normal bowel sounds. No guarding or peritoneal signs. Dressing to five port sites intact with some drainage noted to the op-sites GENITOURINARY: Voiding without difficulty. MUSCULOSKELETAL: No gross deformity - neurovascularly intact x 4 SKIN: Skin warm and dry. Normal turgor. No rashes or lesions. ASSESSMENT: POD#1- Redo laparoscopic hiatal hernia repair with mesh and Shanthi fundoplication, partial gastrectomy PLAN: 1. Tolerating clear liquid diet, will advance to full liquids 2. Ambulate in hallway 3. Pulmonary toilet 4. Discontinue IVF's 5. May discharge home later today documented in this encounter* Javi Weinstein CNP - 03/06/2019 10:42 AM EDT [facility] PATIENT: Maria Elena Alan DATE / TIME: 03/06/19 10:43 AM POS: Office AGE: 63 y.o. : 1955 RACE: [1] SEX: female PCP: Heraclio Green DO REFERRAL: No ref. provider found SUBJECTIVE: Patient presents for first post operative visit after undergoing a redo laparoscopic hiatal hernia repair with with mesh and Shanthi fundoplication. Denies heartburn, regurgitation, and dysphagia. Tolerating a full liquid diet. OBJECTIVE: BP 106/72 Pulse 64 Temp 98.3 F (36.8 C) (Oral) Ht 4' 11 Wt 45 kg (99 lb 4.8 oz) SpO2 97% BMI 20.06 kg/m Abdomen soft, nontender, nondistended. Incisions well approximated with nisha. ASSESSMENT: S/P laparoscopic redo hiatal hernia repair with mesh and Shanthi fundoplication PLAN: 1. Diet per [facility] protocol 2. Continue lifting restrictions 3. [place] removed 4. Follow up PRN documented in this encounter* Ramsey Anaya MD - 01/24/2020 9:20 AM EDT CC: Headaches History of Present Illness Mrs. Alan returns to the office for an annual follow-up on headaches and insomnia. She was last seen in late December 2018. The patient reports that she is doing well. She is taking Topamax 50 mg BID and Remeron 45 mg nightly. She reports rare severe headaches. She is not the best at quantifying the frequency of headaches. This has been a recurrent problem in doing assessments each year. She has no other changes or concerns today. Headache Preventative History Topamax 50 mg BID Insomnia Treatment History Remeron 30 mg daily OARRS-- no meds Labs/Studies No new pertinent results Past Medical, Surgical, Social, Family History Updates 1. Medical--none 2. Surgical--none 3. Social--none 4. Family--none Past Medical History: Diagnosis Date Depression Essential hypertension, benign Hyperlipidemia Past Surgical History: Procedure Laterality Date HERNIA REPAIR X2 Current Outpatient Medications Medication Sig Last Dose Start Date End Date Authorizing Provider atorvastatin 20 MG Tab tablet 20 mg, Oral, DAILY Historical Provider budesonide-formoterol (SYMBICORT) 160-4.5 mcg/puff Aerosol inhaler 2 puffs, Inhalation, EVERY 12 HOURS Historical Provider fenofibrate 54 MG Tab 54 mg, Oral, DAILY Historical Provider fluticasone 50 MCG/ACT Suspension nasal spray 2 sprays, Nasal, DAILY Historical Provider losartan-hydrochlorothiazide 50-12.5 MG Tab tablet 1 tablet, Oral, DAILY Historical Provider mirtazapine (Remeron) 45 MG tablet 45 mg, Oral, DAILY EARLY EVENING 08/15/19 02/11/20 Ramsey Anaya MD topiramate 50 MG tablet 50 mg, Oral, 2 TIMES DAILY 08/15/19 02/11/20 Ramsey Anaya MD Allergies Allergen Reactions Penicillins Social History Socioeconomic History Marital status: Spouse name: Not on file Number of children: Not on file Years of education: Not on file Highest education level: Not on file Occupational History Not on file Social Needs Financial resource strain: Not on file Food insecurity Worry: Not on file Inability: Not on file Transportation needs Medical: Not on file Non-medical: Not on file Tobacco Use Smoking status: Never Smoker Smokeless tobacco: Never Used Substance and Sexual Activity Alcohol use: No Drug use: No Sexual activity: Not on file Lifestyle Physical activity Days per week: Not on file Minutes per session: Not on file Stress: Not on file Relationships Social connections Talks on phone: Not on file Gets together: Not on file Attends yarsani service: Not on file Active member of club or organization: Not on file Attends meetings of clubs or organizations: Not on file Relationship status: Not on file Intimate partner violence Fear of current or ex partner: Not on file Emotionally abused: Not on file Physically abused: Not on file Forced sexual activity: Not on file Other Topics Concern Not on file Social History Narrative Not on file Family History Problem Relation Age of Onset Heart Disease - Other Mother Breast Cancer Sister Lipid Disorder Sister Heart Disease - Other Sister GI Disease Sister Review of Systems Constitutional: Negative for appetite change, chills, diaphoresis, fatigue, fever and unexpected weight change. HENT: Negative for congestion, ear pain, hearing loss, nosebleeds, rhinorrhea, sinus pressure, sinus pain, sneezing, sore throat, tinnitus, trouble swallowing and voice change. Eyes: Negative for photophobia, pain and visual disturbance. Respiratory: Negative for apnea, cough, choking, chest tightness, shortness of breath, wheezing andstridor. Cardiovascular: Negative for chest pain, palpitations and leg swelling. Gastrointestinal: Negative for abdominal distention, abdominal pain, anal bleeding, blood in stool,constipation, diarrhea, nausea, rectal pain and vomiting. Endocrine: Negative for cold intolerance, heat intolerance, polydipsia, polyphagia and polyuria. Genitourinary: Negative for decreased urine volume, difficulty urinating, dysuria, flank pain, frequency, hematuria and urgency. Musculoskeletal: Negative for arthralgias, back pain, gait problem, joint swelling, myalgias, neck pain and neck stiffness. Skin: Negative for color change, pallor, rash and wound. Allergic/Immunologic: Negative for food allergies and immunocompromised state. Neurological: Positive for headaches. Negative for dizziness, tremors, seizures, syncope, facial asymmetry, speech difficulty, weakness, light-headedness and numbness. Hematological: Negative for adenopathy. Does not bruise/bleed easily. Psychiatric/Behavioral: Negative for agitation, behavioral problems, confusion, decreased concentration, dysphoric mood, hallucinations, self-injury, sleep disturbance and suicidal ideas. The patientis not nervous/anxious and is not hyperactive. Vitals: Blood pressure 150/90, pulse 66, resp. rate 16, height 1.524 m (5'), weight 58.1 kg (128 lb). Physical Exam Constitutional: General: She is not in acute distress. Appearance: Normal appearance. She is well-developed. She is not ill-appearing, toxic-appearing or diaphoretic. HENT: Head: Normocephalic and atraumatic. Right Ear: Hearing and external ear normal. Left Ear: Hearing and external ear normal. Nose: Nose normal. Mouth/Throat: Pharynx: Uvula midline. Eyes: General: Lids are normal. Conjunctiva/sclera: Conjunctivae normal. Pupils: Pupils are equal, round, and reactive to light. Neck: Musculoskeletal: Full passive range of motion without pain, normal range of motion and neck supple.Normal range of motion. No neck rigidity, spinous process tenderness or muscular tenderness. Vascular: No carotid bruit. Trachea: Trachea and phonation normal. Cardiovascular: Rate and Rhythm: Normal rate and regular rhythm. Heart sounds: Normal heart sounds, S1 normal and S2 normal. Pulmonary: Effort: Pulmonary effort is normal. No tachypnea, bradypnea, accessory muscle usage or respiratory distress. Breath sounds: Normal breath sounds. Abdominal: General: Bowel sounds are normal. Palpations: Abdomen is soft. Tenderness: There is no abdominal tenderness. Lymphadenopathy: Cervical: No cervical adenopathy. Skin: General: Skin is warm and dry. Coloration: Skin is not pale. Findings: No rash. Nails: There is no clubbing. Neurological: Mental Status: She is alert and oriented to person, place, and time. Cranial Nerves: Cranial nerves are intact. Motor: Motor function is intact. No abnormal muscle tone. Coordination: Coordination is intact. Gait: Gait normal. Psychiatric: Speech: Speech normal. Behavior: Behavior normal. Thought Content: Thought content normal. Judgment: Judgment normal. Neurologic Exam Mental Status Oriented to person, place, and time. Speech: speech is normal Cranial Nerves CN III, IV, Pupils are equal, round, and reactive to light. Assessment and Plan 1. Intractable tension headaches A. The patient seems to be doing well. Once again, I asked her to try cutting back on Topamax to 50mg daily. B. I renewed the Remeron and Topamax for 12 months each. C. Follow up in one year. 2. Insomnia Please note this visit consumed 20-25 minutes, of which half or more was dedicated to [id number] counseling of the problems/issues and coordination of all care. documented in this encounter* Ramsey Anaya MD - 01/11/2019 11:20 AM EDT CC: Headaches and Insomnia History of Present Illness Mrs. Alan returns to the office for mgmt of headaches and insomnia. She was last seen nearly ayear ago in January 2019. The patient reports that she is not sleeping well at all. She partially blames severe GERD that wakes her up. She is scheduled for a surgical procedure in February to treat the GERD. She is taking theRemeron 30 mg daily still. The headaches are extremely rare. She credits the Topamax 50 mg BID. OARRS--no meds Labs/Studies No new pertinent results Past Medical, Surgical, Social, Family History Updates 1. Medical--none 2. Surgical--upcoming surgery for GERD 3. Social--none 4. Family--none Current Outpatient Medications Medication Sig Last Dose Start Date End Date Authorizing Provider atorvastatin 20 MG Tab tablet 20 mg, Oral, DAILY Taking Historical Provider budesonide-formoterol (SYMBICORT) 160-4.5 mcg/puff Aerosol inhaler 2 puffs, Inhalation, EVERY 12 HOURS Taking Historical Provider fenofibrate 54 MG Tab 54 mg, Oral, DAILY Taking Historical Provider fluticasone 50 MCG/ACT Suspension nasal spray 2 sprays, Nasal, DAILY Taking Historical Provider losartan-hydrochlorothiazide 50-12.5 MG Tab tablet 1 tablet, Oral, DAILY Taking Historical Provider mirtazapine 30 MG Tab 30 mg, Oral, DAILY AT BEDTIME 11/14/18 Ramsey Anaya MD topiramate 50 MG Tab 50 mg, Oral, 2 TIMES DAILY 11/14/18 Ramsey Anaya MD Allergies Allergen Reactions Penicillins Review of Systems Constitutional: Negative for appetite change, chills, diaphoresis, fatigue, fever and unexpected weight change. HENT: Negative for congestion, ear pain, hearing loss, nosebleeds, rhinorrhea, sinus pressure, sinus pain, sneezing, sore throat, tinnitus, trouble swallowing and voice change. Eyes: Negative for photophobia, pain and visual disturbance. Respiratory: Negative for apnea, cough, choking, chest tightness, shortness of breath, wheezing andstridor. Cardiovascular: Negative for chest pain, palpitations and leg swelling. Gastrointestinal: Positive for abdominal distention. Negative for abdominal pain, anal bleeding, blood in stool, constipation, diarrhea, nausea, rectal pain and vomiting. Endocrine: Negative for cold intolerance, heat intolerance, polydipsia, polyphagia and polyuria. Genitourinary: Negative for decreased urine volume, difficulty urinating, dysuria, flank pain, frequency, hematuria and urgency. Musculoskeletal: Negative for arthralgias, back pain, gait problem, joint swelling, myalgias, neck pain and neck stiffness. Skin: Negative for color change, pallor, rash and wound. Allergic/Immunologic: Negative for food allergies and immunocompromised state. Neurological: Negative for dizziness, tremors, seizures, syncope, facial asymmetry, speech difficulty, weakness, light-headedness, numbness and headaches. Hematological: Negative for adenopathy. Does not bruise/bleed easily. Psychiatric/Behavioral: Positive for sleep disturbance. Negative for agitation, behavioral problems, confusion, decreased concentration, dysphoric mood, hallucinations, self-injury and suicidal ideas. The patient is not nervous/anxious and is not hyperactive. Vitals: Blood pressure 134/86, pulse 56, resp. rate 18, height 1.524 m (5'), weight 49 kg (108 lb). Physical Exam Constitutional: She is oriented to person, place, and time. She appears well- developed and well-nourished. Non-toxic appearance. She does not have a sickly appearance. She does not appear ill. No distress. HENT: Head: Normocephalic and atraumatic. Right Ear: Hearing and external ear normal. Left Ear: Hearing and external ear normal. Nose: Nose normal. Mouth/Throat: Uvula is midline, oropharynx is clear and moist and mucous membranes are normal. Eyes: Pupils are equal, round, and reactive to light. Conjunctivae, EOM and lids are normal. Neck: Trachea normal, normal range of motion, full passive range of motion without pain and phonation normal. Neck supple. No spinous process tenderness and no muscular tenderness present. Carotid bruit is not present. No neck rigidity. Normal range of motion present. Cardiovascular: Normal rate, regular rhythm, S1 normal, S2 normal and normal heart sounds. Pulmonary/Chest: Effort normal and breath sounds normal. No accessory muscle usage. No apnea, no tachypnea and no bradypnea. No respiratory distress. Abdominal: Soft. Normal appearance and bowel sounds are normal. There is no tenderness. Lymphadenopathy: She has no cervical adenopathy. Neurological: She is alert and oriented to person, place, and time. She has normal strength. No cranial nerve deficit. She exhibits normal muscle tone. She displays a negative Romberg sign. Coordination and gait normal. Skin: Skin is warm, dry and intact. No rash noted. She is not diaphoretic. No cyanosis. No pallor. Nails show no clubbing. Psychiatric: She has a normal mood and affect. Her speech is normal and behavior is normal. Judgment and thought content normal. Cognition and memory are normal. Neurologic Exam Mental Status Oriented to person, place, and time. Speech: speech is normal Cranial Nerves CN III, IV, Pupils are equal, round, and reactive to light. Extraocular motions are normal. Motor Exam Strength Strength 5/5 throughout. Assessment and Plan 1. Intractable tension headaches A. Patient did not want to reduce the Topamax to 50 mg at bedtime as I had advised today. She wantsto continue at 50 mg BID; thus, refills were granted for next 12 months. B. She complains that the insomnia is worse. She wants to try Remeron 45 mg at bedtime, which was sent to pharmacy. She was advised, though, that she might consider reducing again if the GERD procedure is successful. C. Follow up in 1 year. 2. Insomnia Please note this visit consumed 20-25 minutes, of which half or more was dedicated to [id number] counseling of the problems/issues and coordination of all care. documented in this encounter* Crow Ramires MD - 01/09/2019 11:44 AM EDT [facility] [id number] ([address]) [facility] [address] [facility] [id number] Maria Elena Alan is a 63 y.o. female being seen on 01/09/19 for Chief Complaint Patient presents with Follow-up EGD, turpin, manometry, EndoFlip HPI: The patient returns after undergoing an EGD and high-resolution esophageal manometry. The EGD revealed a recurrent hiatal hernia with disrupted Shanthi. Manometry showed ineffective esophageal motility and a hiatal hernia. The patient underwent an initial hiatal hernia repair with Shanthi fundoplication by Dr. Haines in 2002. She had a recurrence and underwent repair in December 2014. She been having recurrent symptoms and upon evaluation is found to have another recurrence. Past Medical History: Diagnosis Date Dehydration 09/2014 requiring hospitalization GERD (gastroesophageal reflux disease) H. pylori infection 12/11/2018 Headache Hiatal hernia Hyperlipidemia Hypertension Tattoo Past Surgical History: Procedure Laterality Date DENTAL SURGERY [address] Kathi Pandya [place] Ear piercings EGD N/A 10/10/2018 Procedure: ESOPHAGOGASTRODUODENOSCOPY; Surgeon: Avelina Haines MD; [facility]: [facility]; Service: General Surgery EGD N/A 12/11/2018 Procedure: ESOPHAGOGASTRODUODENOSCOPY WITH ENDOFLIP AND BIOPSY; Surgeon: Crow Ramires MD; Location: [facility]; Service: General Surgery ESOPHAGEAL MANOMETRY N/A 12/11/2018 Procedure: ESOPHAGEAL MANOMETRY; Surgeon: Crow Ramires MD; Location: [facility]; Service: General Surgery ESOPHAGOGASTRODUODENOSCOPY 12/04/2014 Slipped Shanthi.....Dr Haines LAPAROSCOPIC SHANTHI FUNDOPLICATION 04/07/2003 Gerd hiatal hernia......Dr Haines SHANTHI FUNDOPLICATION REVISION LAPAROSCOPIC 01/01/2015 slipped Shanthi with repair of type [address] Haines with Dr Carlisle assist Allergies Allergen Reactions Penicillins Hives Current Outpatient Medications Medication Sig Dispense Refill atorvastatin (LIPITOR) 20 MG tablet Take 20 mg by mouth daily . budesonide-formoterol (SYMBICORT) 160-4.5 mcg/actuation inhaler Inhale 2 puffs 2 (two) times a day . fenofibrate (TRICOR) 54 MG tablet Take 54 mg by mouth daily . losartan-hydrochlorothiazide (HYZAAR) 50-12.5 mg per tablet Take 1 tablet by mouth daily . mirtazapine (REMERON) 30 MG tablet Take 30 mg by mouth nightly . topiramate (TOPAMAX) 50 MG tablet Take 50 mg by mouth 2 (two) times a day . No current facility-administered medications for this visit. Social History Tobacco Use Smoking status: Never Smoker Smokeless tobacco: Never Used Substance Use Topics Alcohol use: Never Frequency: Never Drug use: Never Family History Problem Relation Age of Onset COPD Mother Lung cancer Father COPD Father Breast cancer Sister Heart disease Paternal Grandmother Heart disease Paternal Grandfather REVIEW OF SYSTEMS Pertinent positives are listed in HPI, PMSH, SH, ALL, otherwise all systems reviewed below are negative. The following systems were reviewed: [x] Const (fevers, chills, wt. loss, fatigue) [x] CV (HTN, CP, HUYNH, edema, DVT) [x] Resp (SOB, pleurisy, asthma, apnea) [x] GI (N, V, D, C, M, abd pain, appetite) [x] Musc (back pain, joint stiffness, gout) [x] Neuro (seizures, syncope, paralysis) [x] Psych (depression, anxiety) [x] Endo (hot/cold intol, polyuria[DM]) [x] Hem/Lymph (Anemia, LA, bleeding) [x] Allerg/Immun (seasonal, immuniz) [x] Eyes (diplopia, cataracts) [x] ENT/mouth (dysphagia, epistaxis) [x] (dysuria, hematuria) [x] Skin/Breast (moles, rash, lumps, nipple changes) Pertinent Positives: See HPI Pertinent Negatives: See HPI Physical Exam: BP (!) 157/82 Pulse 62 Temp 98.8 F (37.1 C) (Oral) Ht 4' 11 Wt 48.9 kg (107 lb 14.4 oz) SpO2 98% BMI 21.79 kg/m Body mass index is 21.79 kg/m . Constitutional: Well nourished, well developed person in no acute distress. Ambulates without difficulty. Head: Atraumatic and normocephalic. Face: Within normal limits. Eyes: Pupils equal, round, reactive to light. Sclera white. Mouth: Moist mucous membranes, normal dentation. Neck: supple, trachea midline,no masses, no incisions. Lymphatic: No cervical or inguinal lymphadenopathy. Heart: Regular rate and rhythm. Lungs: Clear to auscultation. Abdomen: Soft, non-distended, non-tender, no heptasplenomegaly, no umbilica, incisional, femoral, or inguinal hernias. Pelvis: Stable, non-tender. Skin: Warm, moist, normal skin turgor. Peripheral Vascular: Palapable carotid, radial, and femoral pulses, no peripheral edema. Neuropsych: Alert and oriented, judgement and insight intact. Normal Gait. Assessment: 1. Slipped Shanthi fundoplication 2. Hiatal hernia with GERD without esophagitis No orders of the defined types were placed in this encounter. Plan: I had a detailed discussion with the patient regarding her diagnosis. All treatment options were discussed in detail. At this point we will proceed with a laparoscopic redo-hiatal hernia repair with mesh and redo Shanthi fundoplication. Risk, benefits, and alternatives were discussed with the patient detail prior to obtaining consent. Crow Ramires MD documented in this encounter Assessments Diagnosis Gastroesophageal reflux disease, esophagitis presence not specified- Primary Diagnosis Gastroesophageal reflux disease, esophagitis presence not specified Slipped Shanthi fundoplication Diagnosis Heartburn- Primary Gaseous regurgitation Flatulence, eructation, and gas pain Abdominal pain, epigastric History of Shanthi fundoplication Diagnosis Intractable headache, unspecified chronicity pattern, unspecified headache type Diagnosis Slipped Shanthi fundoplication- Primary Hiatal hernia with GERD without esophagitis Diagnosis Slipped Shanthi fundoplication Hiatal hernia with GERD without esophagitis Diagnosis Status post laparoscopic Shanthi fundoplication- Primary Diagnosis Intractable headache, unspecified chronicity pattern, unspecified headache type Diagnosis Preop testing- Primary Unspecified pre-operative examination Diagnosis Intractable headache, unspecified chronicity pattern, unspecified headache type Diagnosis Heartburn Gaseous regurgitation Flatulence, eructation, and gas pain Abdominal pain, epigastric History of Shanthi fundoplication Slipped Shanthi fundoplication Helicobacter pylori gastritis Reflux esophagitis Diagnosis Slipped Shanthi fundoplication- Primary Hiatal hernia with GERD without esophagitis Discharge Instructions * Discharge Instr - AVS First Page* Avelina Haines MD - 10/10/2018 8:16 AM EDT ENDOSCOPY DISCHARGE INSTRUCTIONS TO PATIENT PATIENT: Maria Elena Alan : 1955 AGE: 63 y.o. SEX: female RACE: [1] PCP: Heraclio Green DO REFERRAL: No ref. provider found Today we found: Your Shanthi repair has slipped. GENERAL INSTRUCTIONS ? You were given an anesthetic to help you relax for the procedure. You may feel fuzzy or sleepy. ? If IV sites become sore or painful, apply warm moist compresses to the site 3- 4 times per day. ? If IV sites show signs of infection (redness, swelling, pus-like drainage, etc.), contact your physician. Diet ? If you had an upper GI scope, a local anesthetic may have been given to numb your throat. Allow 1to 2 hours following the procedure before drinking or eating. Begin by taking small amounts of liquids, initially water, to be sure the numbness has worn off. Once water is tolerated, you may begin with a light meal, and then resume your pre-procedure diet. ? DO NOT consume alcohol containing beverages for 24 hours after the procedure. Activity ? DO NOT drive for 24 hours. DO NOT operate any vehicles / machinery / or devices which requires your full alertness for 24 hours. ? If you had a polyp removed or a biopsy performed, avoid heavy lifting and exercise for 7-10 days. Follow-up Call the office at [phone] to make appointment to be seen in: You will be referred to Dr. Crow Ramires in the [facility]. Medication instructions ? Unless otherwise instructed, do not use Ibuprofen (Advil, Motrin, Nuprin, MediPren, etc.) or Aspirin in any form for 3 days. ? You can resume your other home medications. If you were on a blood thinner, you may restart your blood thinner (Coumadin, Pradaxa, Xarelto, Plavix, Pletal, Effient, Brilinta, etc.) on: If you had a colonoscopy, your next colonoscopy will need to be in: N/A Other instructions You will be referred to Dr. Crow Ramires in the [facility]. Your referring physician will receive a copy of the results of today s procedure. * Additional Instructions* Wendy Pritchard RN - 10/10/2018 Upper GI Endoscopy: What to Expect at Home Your Recovery After you have an endoscopy, you will stay at the hospital or clinic for 1 to 2 hours. This will allow the medicine to wear off. You will be able to go home after your doctor or nurse checks to make sure you are not having any problems. You may have to stay overnight if you had treatment during the test. You may have a sore throat fora day or two after the test. This care sheet gives you a general idea about what to expect after the test. How can you care for yourself at home? Activity Rest as much as you need to after you go home. You should be able to go back to your usual activities the day after the test. Diet Follow your doctor's directions for eating after the test. Drink plenty of fluids (unless your doctor has told you not to). Medications If you have a sore throat the day after the test, use an zmth-poy-jtuldgg spray to numb your throat. Follow-up care is a garcia part of your treatment and safety. Be sure to make and go to all appointments, and call your doctor if you are having problems. It's also a good idea to know your test resultsand keep a list of the medicines you take. When should you call for help? Call 911 anytime you think you may need emergency care. For example, call if: You passed out (loses consciousness). You have trouble breathing. You pass maroon or bloody stools. Call your doctor now or seek immediate medical care if: You have pain that does not get better after your take pain medicine. You have new or worse belly pain. You have blood in your stools. You are sick to your stomach and cannot keep fluids down. You have a fever. You cannot pass stools or gas. Watch closely for changes in your health, and be sure to contact your doctor if: Your throat still hurts after a day or two. You do not get better as expected. Where can you learn more? Log into your personal health record on https://[employer]Sprooki and enter J454 in the Education box to learn more about Upper GI Endoscopy: What to Expect at Home. Current as of: March 21, 2018 Content Version: 12.0 2065-9801 [employer], [employer]. Care instructions adapted under license by your healthcare professional. If you have questions about a medical condition or this instruction, always ask your healthcare professional. [employer] disclaims any warranty or liability for your use of this information. Gastroesophageal Reflux Disease (GERD): Care Instructions Your Care Instructions Gastroesophageal reflux disease (GERD) is the backward flow of stomach acid into the esophagus. Theesophagus is the tube that leads from your throat to your stomach. A one-way valve prevents the stomach acid from moving up into this tube. When you have GERD, this valve does not close tightly enough. If you have mild GERD symptoms including heartburn, you may be able to control the problem with antacids or rruv-vrh-wzxgkws medicine. Changing your diet, losing weight, and making other lifestyle changes can also help reduce symptoms. Follow-up care is a garcia part of your treatment and safety. Be sure to make and go to all appointments, and call your doctor if you are having problems. It's also a good idea to know your test resultsand keep a list of the medicines you take. How can you care for yourself at home? Take your medicines exactly as prescribed. Call your doctor if you think you are having a problem with your medicine. Your doctor may recommend nduh-tua-gavklqv medicine. For mild or occasional indigestion, antacids, such as Tums, Gaviscon, Mylanta, or Maalox, may help. Your doctor also may recommend tgux-jlw-nbbnixn acid reducers, such as Pepcid AC, Tagamet HB, Zantac 75, or Prilosec. Read and follow all instructions on the label. If you use these medicines often, talk with your doctor. Change your eating habits. ? It's best to eat several small meals instead of two or three large meals. ? After you eat, wait 2 to 3 hours before you lie down. ? Chocolate, mint, and alcohol can make GERD worse. ? Spicy foods, foods that have a lot of acid (like tomatoes and oranges), and coffee can make GERD symptoms worse in some people. If your symptoms are worse after you eat a certain food, you may wantto stop eating that food to see if your symptoms get better. Do not smoke or chew tobacco. Smoking can make GERD worse. If you need help quitting, talk to your doctor about stop-smoking programs and medicines. These can increase your chances of quitting for good. If you have GERD symptoms at night, raise the head of your bed 6 to 8 inches by putting the frame on blocks or placing a foam wedge under the head of your mattress. (Adding extra pillows does not work.) Do not wear tight clothing around your middle. Lose weight if you need to. Losing just 5 to 10 pounds can help. When should you call for help? Call your doctor now or seek immediate medical care if: You have new or different belly pain. Your stools are black and tarlike or have streaks of blood. Watch closely for changes in your health, and be sure to contact your doctor if: Your symptoms have not improved after 2 days. Food seems to catch in your throat or chest. Where can you learn more? Log into your personal health record on https://[employer].Sprooki and enter T927 in the Education box to learn more about Gastroesophageal Reflux Disease (GERD): Care Instructions. Current as of: March 21, 2018 Content Version: 12.0 9626-5017 [employer]. Care instructions adapted under license by your healthcare professional. If you have questions about a medical condition or this instruction, always ask your healthcare professional. [employer] disclaims any warranty or liability for your use of this information. documented in this encounter Instructions * Patient Instructions* Ramsey Anaya MD - 01/24/2020 9:20 AM EDT You may dropping the Topamax (Topiramate) down to just 1 tab daily. documented in this encounter* Patient Instructions* Yaritza Green CNP - 02/08/2019 8:00 AM EDT Preoperative Medication Instructions In preparation for surgery please continue all of your current medications with the following changes: Maria Elena Alan Home Medication Instructions Prior to Surgery AMRIK:[id number] Printed on:02/08/19821 Medication Information Take last dose on Take the morning of surgery Comment(s) atorvastatin (LIPITOR) 20 MG tablet Take 20 mg by mouth daily . budesonide-formoterol (SYMBICORT) 160-4.5 mcg/actuation inhaler Inhale 2 puffs 2 (two) times a day as needed . May use inhalers as scheduled morning of surgery fenofibrate (TRICOR) 54 MG tablet Take 54 mg by mouth daily . losartan-hydrochlorothiazide (HYZAAR) 50-12.5 mg per tablet Take 1 tablet by mouth daily . mirtazapine (REMERON) 30 MG tablet Take 45 mg by mouth nightly . topiramate (TOPAMAX) 50 MG tablet Take 50 mg by mouth 2 (two) times a day . STOP ( medications that contain aspirin, such as Shadia [place], Pepto-Bismol, Anacin), antiinflammatory medications such as Advil, Motrin, Ibuprofen, Naproxen, Aleve, Shadia [place], Pepto-Bismol, Anacin, Diclofenac, Voltaren, Daypro, Etodolac, Ketoprofen, Piroxicam, Relafen, Nabumetone, etc. Also disc ontinue Vitamin C, Vitamin E, Borup-3 Fatty Acid, Fish Oil or Lovaza, and all herbal medications ASDIRECTED BY SURGEON. Tylenol (acetaminophen) is acceptable(unless you have an allergy to this medication ), but be careful to follow the label directions and do not use with other pain medications. On the morning of surgery, with as little water as possible, ONLY take the medications listed abovein the column Take the morning of surgery. If you are using Eye Drops or Inhalers, please bring them to the hospital. Patient Instructions for [facility]: Prior to surgery: Surgeon's office will contact you with the scheduled time of your surgery. You may use the [place] parking available at the Main Entrance One family member may accompany you back into the Pre-Op Area. Do not eat or drink anything after midnight or as directed, including gum, mints, and cough drops. No smoking after midnight. No alcohol 24 hours prior to your surgery. Please take any medications you have been instructed to take the morning of your surgery with smallsips of water. Please be sure to wear comfortable, appropriate clothing. Please remove all jewelry and piercing's, including wedding rings. Leave all valuable items at home. Shower using anti-bacterial soap or as advised by your Surgeon's office Do not apply any makeup or lotions. Remove all nail brazilian for surgeries involving extremities. Please remember to bring both your insurance card and a photo ID with you on the day of surgery. After your surgery: If you are having outpatient surgery - you must have a licensed hammer driver to take you home. The expectation is that this hammer driver will remain at the hospital for the duration of your procedure. You are advised to have a family member with you for at least 24 hours after being under Anesthesia. If you have sleep apnea and have a CPAP/BIPAP device, please bring it with you the day of surgery. documented in this encounter* Patient Instructions* Ramsey Anaya MD - 01/11/2019 11:20 AM EDT Use the the Mirtazipine 30 mg tabs by taking 1.5 each bedtime until gone. documented in this encounter Chief Complaint and Reason for Visit Chief Complaint SCREENING/OSTEO Chief Complaint Amb Documentation Reason for Visit Encounter for screen ing for malignant neoplasm of colon Chief Complaint LABS AND XRAY- RIGHT HIP PAIN Chief Complaint Admit Date STOOL July 08, 2024 8:25am Chief Complaint Admit Date SCREENING November 07, 2024 2:47 pm Additional Source Comments INFORMATION SOURCE (unrecogn ized section and content) DATE CREATED AUTHOR 03/02/2018 [facility] DATE CREATED AUTHOR AUTHOR'S ORGANIZ ATION 03/12/[address] [facility] DATE CREATED AUTHOR AUTHOR'S ORGANIZ ATION 03/06/2019 [facility] DATE CREATED AUTHOR AUTHOR'S ORGANIZ ATION 03/06/[address] [facility] DATE CREATED AUTHOR AUTHOR'S ORGANIZ ATION 11/14/2024 [facility] Reason for Visit (unrecogniz ed section and content) Reason Comments Gastroesophageal Reflux Status Reason Specialty Diagnoses / Procedures Referred By Contact Referred To Contact Closed General Surgery Diagnoses Gastroesophageal reflux disease, esophagitis presence not specified Heraclio Green, DO [address] [place] [address] Avelina Haines MD [address] [place] [address] [address] Status Reason Specialty Diagnoses / Procedures Referre d By Contact Referred To Contact Diagnoses Gastroesophageal reflux disease, esophagitis presence not specified Gastroesophageal reflux disease, esophagitis presence not specified [K21.9] Avelina Haines MD [address] [place] [address] Reason Comments Consult chest pain, heartbur n, regurgitation, previous Shanthi fundoplication with redo Reason Comments Medication Refill Reason Comments Follow-up slipped Shanthi fundo plication Status Reason Specialty Diagnoses / Procedures Re ferred By Contact Referred To Contact Diagnoses Slipped Shanthi fundoplication Hiatal hernia with GERD without esophagitis Slipped Shanthi fundoplication [K91.89] Hiatal hernia with GERD without esophagitis [K44.9, K21.9] Crow Ramires MD [address] [place] [address] Reason Comments Follow-up Redo hiatal hernia r epair with Shanthi fundoplication Reason Comments Follow-up Headache Status Reason Specialty Diagnoses / Procedures Referre d By Contact Referred To Contact Diagnoses Heartburn Heartburn [R12] Crow Ramires MD [address] [place] [address] Reason Comments Follow-up EGD, turpin, manometr y, EndoFlip Avelina Haines MD - 10/10/2018 7:56 AM Avelina Cornejo MD - 09/19/2018 10:35 AM Crow Angela MD - 02/18/2019 9:20 AM Crow Angela MD - 02/14/2019 8:23 AM EDT H&P Notes (unrecognized sect ion and content) INTERVAL HISTORY AND PHYSICAL Patient Name: Maria Elena Alan Admit Date: [id number] MR #: [id number] : 1955 The H&P has been reviewed and the patient has been examined. It is appropriate to proceed with the planned procedure. Avelina Haines MD 10/10/2018 7:56 AM GENERAL SURGERY H+P / CONSULT - 09/19/18 PATIENT: Maria Elena Alan : 1955 AGE: 63 y.o. SEX: female RACE: [1] PCP: Heraclio Green DO REFERRAL: Heraclio Green, CHART Reviewed ROS Questionnaire Reviewed Historian Patient Quality Good Accompanied by Her CC I'm having a lot of heartburn HPI Patient states she had moderate to severe heartburn for the past 3 months, every day, burning constantly, not getting worse. She has no appetite due to the heartburn but denies fevers, chills, nausea, emesis, diarrhea, constipation, melena, recent weight loss, chest pain, shortness of breath, or bleeding dyscrasias. She had a Shanthi in 2002 and redo in 2014. REVIEW OF SYSTEMS Systems Reviewed Constitutional, Eyes, ENT/Mouth, CV, Resp, GI, , MS, Skin, Neuro, Psych, Endo, Heme/Lymph, Breasts Symptoms Reviewed Fevers, chills, fatigue, recent weight loss, double vision, cataracts, difficulty swallowing, bloody noses, high blood pressure, chest pain or angina, heart rhythm problems, difficulty breathing with exertion, blood clots, leg swelling, shortness of breath, asthma, cough, sleep apnea, nausea, vomiting, constipation, diarrhea, blood in stools, abdominal pain, appetite changes, blood in urine, painful urination, frequent urination, urine infections, incontinence, arthritis, gout, rashes, skin cancer, seizures, syncope, stroke, weakness, depression, anxiety, high or low blood sugar, thyroid problems, anemia, lymph node enlargement, bleeding problems, breast pain, nipple discharge, breast mass Pertinent Positives High blood pressure, Asthma, Appetite changes Pertinent Negatives PMH / PSH Past Medical History: Diagnosis Date Dehydration 09/2014 requiring hospitalization GERD (gastroesophageal reflux disease) Headache Hiatal hernia Hyperlipidemia Hypertension Tattoo Past Surgical History: Procedure Laterality Date DENTAL SURGERY [address] Kathi Pandya [place] Ear piercings ESOPHAGOGASTRODUODENOSCOPY 12/04/2014 Slipped Shanthi.....Dr Haines LAPAROSCOPIC SHANTHI FUNDOPLICATION 04/07/2003 Gerd hiatal hernia......Dr Haines SHANTHI FUNDOPLICATION REVISION LAPAROSCOPIC 01/01/2015 slipped Shanthi with repair of type [address] Haines with Dr Carlisle assist OB History 2 Para 2 Term AB Living SAB 0 TAB Ectopic Multiple Live Births FAM HX Family History Problem Relation Age of Onset COPD Mother Lung cancer Father COPD Father Breast cancer Sister Heart disease Paternal Grandmother Heart disease Paternal Grandfather SOC HX Social History Occupational History 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 ALLERGIES Allergies Allergen Reactions Penicillins EXAM Vitals BP (!) 165/79 (BP Location: Right arm, Patient Position: Sitting, BP Cuff Size: Youth) Pulse 67 Temp 97.7 F (36.5 C) (Oral) Ht 5' Wt 48.3 kg (106 lb 8 oz) SpO2 98% BMI 20.80 kg/m Obesity No Const Alert, oriented, cooperative, pleasant, NAD HEENT AT/NC, Perr, OC/OP no gross lesions Neck no thyromegaly, no masses, no bruits Cor RRR, no murmurs Lungs clear to auscultation, no wheezes or rales Abd soft, NT, ND, no masses, no HSM, no peritoneal signs Hernia no abdominal wall hernias Musc / Back no CVA tenderness Ext no LE edema, no UE or LE deformities, normal pulses all extremities Neuro CN's grossly intact, no gross deficits Psych normal affect Lymph no neck LA Chest / Breast Rectal Skin / Other No obvious rashes RADIOLOGY Images reviewed personally ASSESSMENT / PLAN GERD. Previous Shanthi and redo. Recommend EGD. Diff Dx Esophagitis, gastritis, slipped Shanthi, etc. Doubt malignancy. Chronic conditions HTN, Hyperlipidemia - both clinically stable per the patient. Co-morbidities PMH/PSH Yes SH No Age Yes Anticoagulation No Other Risks Explained Bleeding, Infection, Risks of Anesthesia, Injury to the esophagus / stomach. Anticipated Anesthesia MAC Morbidity risk (see co-morbidities above) Low Risks / Rationale / Benefits / Alternatives discussed Yes Informed consent obtained Yes Questions answered Yes [facility] ORDERS / F/U Schedule EGD ICD Gastroesophageal reflux disease, esophagitis presence not specified [K21.9] Thank you for the privilege of allowing me to participate in the care of this patient Layout PNSHETH documented in this encounter INTERVAL HISTORY AND PHYSICAL Patient Name: Maria Elena Alan Admit Date: [id number] MR #: [id number] : 1955 The H&P has been reviewed and the patient has been examined. I concur with the findings of the H&P. There are no significant changes. It is appropriate to proceed with the planned procedure. Crow Ramires MD 02/18/2019 9:20 AM [facility] [id number] (11) [facility] [address] [facility] [id number] Maria Elena Alan is a 63 y.o. female being seen on 02/14/19 for Chief Complaint Patient presents with Follow-up slipped Shanthi fundoplication HPI: The patient presents today to update her history and physical prior to undergoing surgery. She underwent an EGD with biopsy, high resolution esophageal manometry, and Endoflip evaluation on 12/11/2018. The EGD revealed a recurrent hiatal hernia with disrupted Shanthi. Manometry showed ineffective esophageal motility and a hiatal hernia. The patient underwent an initial hiatal hernia repair with Shanthi fundoplication by Dr. Haines in 2002. She had a recurrence and underwent repair in December 2014. She been having recurrent symptoms and upon evaluation is found to have another recurrence. Past Medical History: Diagnosis Date Dehydration 09/2014 requiring hospitalization GERD (gastroesophageal reflux disease) H. pylori infection 12/11/2018 Headache Hiatal hernia Hyperlipidemia Hypertension Tattoo Past Surgical History: Procedure Laterality Date DENTAL SURGERY [address] Kathi [place] Ear piercings EGD N/A 10/10/2018 Procedure: ESOPHAGOGASTRODUODENOSCOPY; Surgeon: Avelina Haines MD; [facility]; Service: General Surgery EGD N/A 12/11/2018 Procedure: ESOPHAGOGASTRODUODENOSCOPY WITH ENDOFLIP AND BIOPSY; Surgeon: Crow Ramires MD; Location: Endo; Service: General Surgery ESOPHAGEAL MANOMETRY N/A 12/11/2018 Procedure: ESOPHAGEAL MANOMETRY; Surgeon: Crow Ramires MD; Location: Endo; Service: General Surgery ESOPHAGOGASTRODUODENOSCOPY 12/04/2014 Slipped Shanthi.....Dr Haines LAPAROSCOPIC SHANTHI FUNDOPLICATION 04/07/2003 Gerd hiatal hernia......Dr Haines SHANTHI FUNDOPLICATION REVISION LAPAROSCOPIC 01/01/2015 slipped Shanthi with repair of type [address] Haines with Dr Carlisle assist Allergies Allergen Reactions Penicillins Hives Current Outpatient Medications Medication Sig Dispense Refill atorvastatin (LIPITOR) 20 MG tablet Take 20 mg by mouth daily . budesonide-formoterol (SYMBICORT) 160-4.5 mcg/actuation inhaler Inhale 2 puffs 2 (two) times a day as needed . fenofibrate (TRICOR) 54 MG tablet Take 54 mg by mouth daily . losartan-hydrochlorothiazide (HYZAAR) 50-12.5 mg per tablet Take 1 tablet by mouth daily . mirtazapine (REMERON) 30 MG tablet Take 45 mg by mouth nightly . topiramate (TOPAMAX) 50 MG tablet Take 50 mg by mouth 2 (two) times a day . No current facility-administered medications for this visit. Social History Tobacco Use Smoking status: Never Smoker Smokeless tobacco: Never Used Substance Use Topics Alcohol use: Never Frequency: Never Drug use: Never Family History Problem Relation Age of Onset COPD Mother Lung cancer Father COPD Father Breast cancer Sister Heart disease Paternal Grandmother Heart disease Paternal Grandfather REVIEW OF SYSTEMS Pertinent positives are listed in HPI, PMSH, SH, ALL, otherwise all systems reviewed below are negative. The following systems were reviewed: [x] Const (fevers, chills, wt. loss, fatigue) [x] CV (HTN, CP, HUYNH, edema, DVT) [x] Resp (SOB, pleurisy, asthma, apnea) [x] GI (N, V, D, C, M, abd pain, appetite) [x] Musc (back pain, joint stiffness, gout) [x] Neuro (seizures, syncope, paralysis) [x] Psych (depression, anxiety) [x] Endo (hot/cold intol, polyuria[DM]) [x] Hem/Lymph (Anemia, LA, bleeding) [x] Allerg/Immun (seasonal, immuniz) [x] Eyes (diplopia, cataracts) [x] ENT/mouth (dysphagia, epistaxis) [x] (dysuria, hematuria) [x] Skin/Breast (moles, rash, lumps, nipple changes) Pertinent Positives: See HPI Pertinent Negatives: See HPI Physical Exam: BP 144/84 Pulse 62 Temp 98.5 F (36.9 C) (Oral) Ht 4' 11 Wt 48.9 kg (107 lb 11.2 oz) SpO2 100% BMI 21.75 kg/m Body mass index is 21.75 kg/m . Constitutional: Well nourished, well developed person in no acute distress. Ambulates without difficulty. Head: Atraumatic and normocephalic. Face: Within normal limits. Eyes: Pupils equal, round, reactive to light. Sclera white. Mouth: Moist mucous membranes, normal dentation. Neck: supple, trachea midline,no masses, no incisions. Lymphatic: No cervical or inguinal lymphadenopathy. Heart: Regular rate and rhythm. Lungs: Clear to auscultation. Abdomen: Soft, non-distended, non-tender, no heptasplenomegaly, no umbilica, incisional, femoral, or inguinal hernias. Pelvis: Stable, non-tender. Skin: Warm, moist, normal skin turgor. Peripheral Vascular: Palapable carotid, radial, and femoral pulses, no peripheral edema. Neuropsych: Alert and oriented, judgement and insight intact. Normal Gait. Assessment: 1. Slipped Shanthi fundoplication 2. Hiatal hernia with GERD without esophagitis No orders of the defined types were placed in this encounter. Plan: I again had a detailed discussion with the patient regarding her diagnosis. All treatment options were discussed in detail. At this point we will proceed with a laparoscopic redo-hiatal hernia repair with mesh and redo Shanthi fundoplication. Risk, benefits, and alternatives were discussed with the patient detail prior to obtaining consent. Crow Ramires MD documented in this encounter INTERVAL HISTORY AND PHYSICAL Patient Name: Maria Elena Alan Admit Date: [id number] MR #: [id number] : 1955 The H&P has been reviewed and the patient has been examined. I concur with the findings of the H&P. There are no significant changes. It is appropriate to proceed with the planned procedure. Crow Ramires MD 12/11/2018 9:49 AM Office Visit 11/07/2018 [facility] Crow Ramires MD General Surgery Heartburn +3 more Dx Consult Reason for Visit Diagnoses Codes Heartburn - Primary ICD-10-CM: R12 ICD-9-CM: 787.1 Gaseous regurgitation ICD-10-CM: R14.2 ICD-9-CM: 787.3 Abdominal pain, epigastric ICD-10-CM: R10.13 ICD-9-CM: 789.06 History of Shanthi fundoplication ICD-10-CM: Z98.890 ICD-9-CM: V15.29 Progress Notes Expand All Collapse All [facility] [address] (11) [facility] [address] [facility] [phone] Maria Elena Alan is a 63 y.o. female being seen on 11/07/18 for Chief Complaint Patient presents with Consult chest pain, heartburn, regurgitation, previous Shanthi fundoplication with redo HPI: Patient Primary Symptoms are: heartburn, epigastric pain and regurgitation Onset of Symptoms: Patient present with a long history of reflux disease. She had a laparoscopic hiatal hernia repair with Shanthi [place] [address] Haines. She then had a redo laparoscopic hiatal hernia repair with Shanthi in 2104. About 4 months ago symptoms reappeared and she is now complaining of heartburn, regurgitation, and epigastric pain. Dr. Haines did a EGD 09/2018 that did reveal Slipped Shanthi and she was referred to the [facility]. She is currently not on any heartburn medications. She has taken them in the past few months with no resolution of the symptoms. Frequency of Symptoms: Daily Severity of Symptoms: increasing in severity Sleep Disruption: yes Aggravating Factors: supine Alleviating Factors: Denies Medications Tried: Nexium HRQL SCORE: 22 Past Medical History: Diagnosis Date Dehydration 09/2014 requiring hospitalization GERD (gastroesophageal reflux disease) Headache Hiatal hernia Hyperlipidemia Hypertension Tattoo Past Surgical History: Procedure Laterality Date DENTAL SURGERY [address] Kathi [place] Ear piercings EGD N/A 10/10/2018 Procedure: ESOPHAGOGASTRODUODENOSCOPY; Surgeon: Avelina Haines MD; Location: [facility]; Service: General Surgery ESOPHAGOGASTRODUODENOSCOPY 12/04/2014 Slipped Shanthi.....Dr Haines LAPAROSCOPIC SHANTHI FUNDOPLICATION 04/07/2003 Gerd hiatal hernia......Dr Haines SHANTHI FUNDOPLICATION REVISION LAPAROSCOPIC 01/01/2015 slipped Shanthi with repair of type [address] Haines with Dr Carlisle assist Allergies Allergen Reactions Penicillins Hives Current Medications Current Outpatient Medications Medication Sig Dispense Refill atorvastatin (LIPITOR) 20 MG tablet Take 20 mg by mouth daily . budesonide-formoterol (SYMBICORT) 160-4.5 mcg/actuation inhaler Inhale 2 puffs 2 (two) times a day . fenofibrate (TRICOR) 54 MG tablet Take 54 mg by mouth daily . losartan-hydrochlorothiazide (HYZAAR) 50-12.5 mg per tablet Take 1 tablet by mouth daily . mirtazapine (REMERON) 30 MG tablet Take 30 mg by mouth nightly . topiramate (TOPAMAX) 50 MG tablet Take 50 mg by mouth 2 (two) times a day . No current facility-administered medications for this visit. Social History Tobacco Use Smoking status: Never Smoker Smokeless tobacco: Never Used Substance Use Topics Alcohol use: Never Frequency: Never Drug use: Never Family History Problem Relation Age of Onset COPD Mother Lung cancer Father COPD Father Breast cancer Sister Heart disease Paternal Grandmother Heart disease Paternal Grandfather REVIEW OF SYSTEMS Pertinent positives are listed in HPI, PMSH, SH, ALL, otherwise all systems reviewed below are negative. The following systems were reviewed: [x] Const (fevers, chills, wt. loss, fatigue) [x] CV (HTN, CP, HUYNH, edema, DVT) [x] Resp (SOB, pleurisy, asthma, apnea) [x] GI (N, V, D, C, M, abd pain, appetite) [x] Musc (back pain, joint stiffness, gout) [x] Neuro (seizures, syncope, paralysis) [x] Psych (depression, anxiety) [x] Endo (hot/cold intol, polyuria[DM]) [x] Hem/Lymph (Anemia, LA, bleeding) [x] Allerg/Immun (seasonal, immuniz) [x] Eyes (diplopia, cataracts) [x] ENT/mouth (dysphagia, epistaxis) [x] (dysuria, hematuria) [x] Skin/Breast (moles, rash, lumps, nipple changes) Pertinent Positives: See HPI Pertinent Negatives: See HPI Physical Exam: BP (!) 161/87 Pulse 82 Temp 99.3 F (37.4 C) (Oral) Ht 4' 11.75 Wt 49 kg (108 lb 1.6 oz) SpO2 99% BMI 21.29 kg/m Body mass index is 21.29 kg/m . Constitutional: Well nourished, well developed person in no acute distress. Ambulates without difficulty. Head: Atraumatic and normocephalic. Face: Within normal limits. Eyes: Pupils equal, round, reactive to light. Sclera white. Mouth: Moist mucous membranes, normal dentation. Neck: supple, trachea midline,no masses, no incisions. Lymphatic: No cervical or inguinal lymphadenopathy. Heart: Regular rate and rhythm. Lungs: Clear to auscultation. Abdomen: Soft, non-distended, non-tender, no heptasplenomegaly, no umbilica, incisional, femoral, or inguinal hernias. Pelvis: Stable, non-tender. Skin: Warm, moist, normal skin turgor. Peripheral Vascular: Palapable carotid, radial, and femoral pulses, no peripheral edema. Neuropsych: Alert and oriented, judgement and insight intact. Normal Gait. Assessment: SNOMED CT(R) 1. Heartburn HEARTBURN 2. Gaseous regurgitation EXCESSIVE BELCHING 3. Abdominal pain, epigastric EPIGASTRIC PAIN No orders of the defined types were placed in this encounter. Plan: EGD with Biopsy, Endoflip, high resolution Manometry with Impedance and Interpretation Crow Ramires MD Other Notes All notes Progress Notes from Javi Weinstein RN (Nursing) Instructions After Visit Summary (Printed 11/07/2018) Additional Documentation Vitals: BP 161/87 Pulse 82 Temp 99.3 F (37.4 C) (Oral) Ht 4' 11.75 Wt 49 kg (108 lb 1.6 oz) SpO2 99% BMI 21.29 kg/m BSA 1.43 m Flowsheets: Vital Signs, MWM Weekly Check In, Vitals Reassessment, Anthropometrics Encounter Info: Billing Info, Allergies, Detailed Report, Reviewed this Encounter, History Report Communications Letter sent to Heraclio Green, DO Orders Placed Case Request Operating Room: ESOPHAGOGASTRODUODENOSCOPY WITH ENDOFLIP AND BIOPSY, ESOPHAGEAL MANOMETRY Medication Changes None Medication List Visit Diagnoses Heartburn Gaseous regurgitation Abdominal pain, epigastric History of Shanthi fundoplication Problem List Reviewed this Encounter Medications Problems Allergies History Nicolette Franco RN Reviewed Alcohol, Drug Use, Family, Medical, Sexual Activity, Surgical, Tobacco Crow Ramires MD Reviewed Family, Medical, Surgical, Tobacco Level of Service Level of Service [place] OFFICE OUTPATIENT VISIT 25 MINUTES [22134] LOS History Other Charges Charge ID Procedure Code [id number] Description: [place] OFFICE OUTPATIENT VISIT 25 MINUTES Qty.: 1 Crew Truck 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 documented in this encounter discharged , pt alert and oriented, ambulatory. Escorted from department per wheelchair. resp are even and unlabored. Pt without distress Alert on arrival to bay, resp are even and unlabored VS monitoring and Sedation are done by anesthesia/BRAILLE PROOFREADER/CAA Pt is escorted by Lj. Pt states that doctor can speak to family after the procedure. documented in this encounter Op Note - Avelina Haines MD - 10/10/2018 8:13 AM EDTPlan of Meena Palma RN - 02/19/2019 1:39 PM EDTPlan of Johanna Sage RN - 02/18/2019 5:10 PM EDT Miscellaneous Notes (unrecog nized section and content) EGD NOTE - 10/10/18 PATIENT: Maria Elena Alan : 1955 AGE: 63 y.o. SEX: female RACE: [1] PCP: Heraclio Green DO REFERRAL: No ref. provider found Time Out Performed Yes Site Marking N/A Informed Consent Yes Location [facility] Referring Dr. Heraclio Green Surgeon Avelina Haines MD Pre-op Dx GERD X 3 months, previous Shanthi in 2002, redo Shanthi in 2014 Procedure EGD Post-op Dx Slipped Shanthi Defer to pathology N/A Anesthesia MAC and viscous Lidocaine PO Svp Digital Ad Sales None Positioning Left lateral decubitus Details of Procedure Vital signs, O2 sats, and EKG were monitored throughout the procedure. Scope Entrance Transorally Duodenum Normal Pylorus Normal Stomach Slipped Shanthi that is intact. GE [place]unction Normal Esophagus Normal Larynx Normal Miscellaneous EBL None Complications None Specimens None Recommendations Await pathology N/A PPI Continue Other Follow-up Refer to Dr. Crow Ramires ([facility]) Disposition Tolerated well. Layout PNSHETH documented in this encounter Complains of rt upper chest with breaths. Pt discharge home today. Problem: Pain Goal: Manage acute pain Outcome: Partially Met Pre-operative Diagnosis:Pre-Op Diagnosis Codes: * Slipped Shanthi fundoplication [K91.89] * Hiatal hernia with GERD without esophagitis [K44.9, K21.9] Post-operative Diagnosis: same *Gastrotomy Surgeon: Crow Ramires Svp Digital [employer] Sales: Javi Weinstein CNP Procedure and Anesthesia: Procedure(s) and Anesthesia Type: * LAPAROSCOPIC REDO HIATAL HERNIA REPAIR WITH MESH AND REDO SHANTHI FUNDOPLICATION - General *Partial gastrectomy CPT Code: 68907, 57532 EBL 10 ml Complications:None Drains: None Dispo: PACU Indication: This is a 63-year-old female with the above-stated preoperative diagnoses. A full preoperative diagnostic evaluation was performed. The patient would like to proceed with surgical treatment. Risks, benefits, and alternatives were discussed with the patient in detail prior to obtaining consent. Procedure: The patient was brought to the operating room and placed in the supine position. Appropriate time out was performed. General anesthesia was administered and endotracheal intubation accomplished without difficulty. The patient was placed in yellowfin stirrups. The abdomen was prepped and draped in the usual sterile fashion. A second timeout was performed and was physician lead. Half-percent Marcaine was injected to the left of the umbilicus. A 12 mm incision was made and a 12 mm trocar was placed using Optiview technique. The abdomen was then insufflated to 15 mmHg using CO2. A second 12 mm port was then placed under direct visualization. This port was placed in the left subcostal position midclavicular line. Two 5 mm ports were then placed under direct visualization. One in the left subcostal position anterior axillary line and one in the right subcostal position mid clavicular line. A stab incision was made in the subxiphoid region. A hemostat was used to dilate the incision. The liver retractor was then passed through the incision and the left lobe of the liver was retracted cephalad. The patient was placed in steep reverse Trendelenburg. There were dense adhesions of the stomach to the liver. These were carefully taken down with blunt dissection and the LigaSure. I then circumferentially mobilized the stomach off of the diaphragm. The stomach was sutured to the diaphragm in multiple locations. I then circumferentially mobilized the esophagus well up into the mediastinum using blunt dissection and the LigaSure. This enabled me to achieve approximately 5 cm of intra-abdominal esophageal length. I then proceeded to dismantled the prior fundoplication which had slipped down onto the cardia the stomach. It did appear that there was a partial fundoplication created around what appeared to be the initial fundoplication. This was all dismantled very carefully using blunt dissection and the LigaSure. A small iatrogenic gastrotomy was created in the fundus. This was treated with partial fundectomy using a 60 [place] stapler. The specimen was removed from the operative field but not sent for pathology. I then placed a Endoflip catheter in the esophagus. The balloon was inflated to 30 mL. After 30 seconds the balloon was inflated to 50 mL. The pre-hiatal hernia repair measurements were distensibility index 2.9 mm /mmHg and the minimum diameter was 13 mm. The balloon was deflated to 30 mL. The hiatal hernia was then repaired with interrupted 0 Ethibond suture in a [id number] fashion. The Endoflip balloon was reinflated to 50 mL. The post hiatal hernia repair measurements were distensibility index 1.9 mm /mmHg and minimum diameter 11.7 mm. The balloon was deflated to 30 mL. The hiatal hernia repair was then reinforced with a 7 cm x 10 cm piece of Phasix ST mesh cut to the appropriate configuration to fit the diaphragm. The mesh was secured with absorbable tacks. The fundus of the stomach was then passed through the retroesophageal window. The shoeshine maneuver was used to confirm orientation. A fundoplication was then fashioned at the 9 o'clock position on the esophagus using interrupted 0 Ethibond suture. Each stitch incorporated the esophagus at the 9 o'clock position. The Endoflip catheter was then reinflated to 50 mL. Post fundoplication measurements were distensibility index 2.3 mm /mmHg and minimum diameter 13.7 mm. The Drake was removed from around the esophagus. The fundoplication laid tension-free at the 9 o'clock position on the esophagus. The hiatal hernia repair and mesh reinforcement was intact. All solid organs and hollow viscus were inspected. No injuries were seen. There was excellent hemostasis. The liver retractor was then removed under direct visualization. All ports were then removed and the abdomen was desufflated. The skin incisions were closed with nisha and dressings were applied. The needle, sponge, and instrument count were all correct. The patient tolerated the procedure and was returned to the recovery room in stable condition. documented in this encounter Preoperative Medication Instructions In preparation for surgery please continue all of your current medications with the following changes: Maria Elena Alan Home Medication Instructions Prior to Surgery AMRIK:[id number] Printed on:02/08/19 0809 Medication Information Take last dose on Take the morning of surgery Comment(s) atorvastatin (LIPITOR) 20 MG tablet Take 20 mg by mouth daily . budesonide-formoterol (SYMBICORT) 160-4.5 mcg/actuation inhaler Inhale 2 puffs 2 (two) times a day as needed . fenofibrate (TRICOR) 54 MG tablet Take 54 mg by mouth daily . losartan-hydrochlorothiazide (HYZAAR) 50-12.5 mg per tablet Take 1 tablet by mouth daily . mirtazapine (REMERON) 30 MG tablet Take 45 mg by mouth nightly . topiramate (TOPAMAX) 50 MG tablet Take 50 mg by mouth 2 (two) times a day . STOP ( medications that contain aspirin, such as Shadia [place], Pepto-Bismol, Anacin), antiinflammatory medications such as Advil, Motrin, Ibuprofen, Naproxen, Aleve, Shadia [place], Pepto-Bismol, Anacin, Diclofenac, Voltaren, Daypro, Etodolac, Ketoprofen, Piroxicam, Relafen, Nabumetone, etc. Also discontinue Vitamin C, Vitamin E, Borup-3 Fatty Acid, Fish Oil or Lovaza, and all herbal medications DIRECTED BY SURGEON. Tylenol (acetaminophen) is acceptable(unless you have an allergy to this medication ), but be careful to follow the label directions and do not use with other pain medications. On the morning of surgery, with as little water as possible, ONLY take the medications listed above in the column Take the morning of surgery. If you are using Eye Drops or Inhalers, please bring them to the hospital. Patient Instructions for [facility]: Prior to surgery: Surgeon's office will contact you with the scheduled time of your surgery. You may use the [place] parking available at the Main Entrance One family member may accompany you back into the Pre-Op Area. Do not eat or drink anything after midnight or as directed, including gum, mints, and cough drops. No smoking after midnight. No alcohol 24 hours prior to your surgery. Please take any medications you have been instructed to take the morning of your surgery with small sips of water. Please be sure to wear comfortable, appropriate clothing. Please remove all jewelry and piercing's, including wedding rings. Leave all valuable items at home. Shower using anti-bacterial soap or as advised by your Surgeon's office Do not apply any makeup or lotions. Remove all nail brazilian for surgeries involving extremities. Please remember to bring both your insurance card and a photo ID with you on the day of surgery. After your surgery: If you are having outpatient surgery - you must have a licensed hammer driver to take you home. The expectation is that this hammer driver will remain at the hospital for the duration of your procedure. You are advised to have a family member with you for at least 24 hours after being under Anesthesia. If you have sleep apnea and have a CPAP/BIPAP device, please bring it with you the day of surgery. documented in this encounter OR PreOp - Yaritza Green CNP - 02/08/2019 8:00 AM EDT OR Notes (unrecognized secti on and content) ANESTHESIA PREPROCEDURE EVALUATION Physical Exam Airway Mallampati: II TM Distance: >3 FB Neck ROM: full Mouth opening: >[address]: no Cardiovascular Rhythm: regular Pulmonary Breath sounds are clear to auscultation Neurological Mental Status: alert Dental edentulous (upper and lower) upper: full dentures (upper and lower) Review of Systems / Medical History - No history of anesthetic complications Pulmonary Positive: asthma Neurological / Psychological Positive: neuromuscular disease headaches Cardiovascular Exercise tolerance: good Positive: hypertension hyperlipidemia Gastrointestinal / Hepatic / Renal Positive: GERD Other Negative: smoker and substance abuse documented in this encounter Goals (unrecognized section and content) Goals may be documented in a n alternate sectionGoals may be documented in an alternate sectionGoals may be documented in an alternate sectionGoals may be documented in an alternate sectionGoals may be documented in an alternate sectionGoals may be documented in an alternate sectionGoals may be documented in an alternate section Care Teams (unrecognized sec tion and content) Team Status: Active Member Role Status Dates Dr. Heraclio Green MD Family Provider Active Dr. Christiano Macedo MD Primary Care Provider Active Team Status: Active Member Role Status Dates Dr. Christiano Macedo MD Primary Care Provider Active [facility] Attending Provider Active Team Status: Active Member Role Status Dates Dr. Christiano Macedo MD Primary Care Provider, Referring Provider Active Dr. Yuliya Medina MD Attending Provider, Other Pro vider Active Team Status: Active Member Role Status Dates Dr. Christiano Macedo MD Primary Care Provider Active Dr. Yuliya Medina MD Attending Provider Active Team Status: Inactive Member Role Status Dates Dr. Christiano Macedo MD Primary Care Provider, Attending Provider Active Team Status: Inactive Member Role Status Dates Dr. Christiano Macedo MD Primary Care Provider, Referring Provider Active Dr. Yuliya Medina MD Attending Provider Active Team Status: Inactive Member Role Status Dates [facility] Christian[facility] [place], Attending Provider, Referring Provider Active Team Status: Inactive Member Role Status Dates Dr. Christiano Macedo MD Primary Care Provider Active Start: July 08, 2024 End: July 08, 2024 Dr. Tavo Enriquez MD Attending Provider Active Start: July 08, 2024 End: July 08, 2024 Dr. Tavo Enriquez MD Referring Provider Active Start: July 08, 2024 End: July 08, 2024 Team Status: Inactive Member Role Status Dates Dr. Christiano Macedo MD Primary Care Provider Active Start: October 10, 2024 End: October 10, 2024 Dr. Christiano Macedo MD Attending Provider Active Start: October 10, 2024 End: October 10, 2024 Dr. Christiano Macedo MD Referring Provider Active Start: October 10, 2024 End: October 10, 2024 Team Status: Active Member Role/Relationship Status Dates Dr. Christiano Macedo MD Primary Care Provider Active Team Status: Inactive Member Role/Relationship Status Dates Dr. Chrisitano Macedo MD Primary Care Provider Active Start: October 10, 2024 End: October 10, 2024 Dr. Christiano Macedo MD Attending Provider Active Start: October 10, 2024 End: October 10, 2024 Dr. Christiano Macedo MD Referring Provider Active Start: October 10, 2024 End: October 10, 2024 Team Status: Inactive Member Role/Relationship Status Dates Dr. Christiano Macedo MD Primary Care Provider Active Start: November 07, 2024 End: November 07, 2024 Dr. Christiano Macedo MD Attending Provider Active Start: November 07, 2024 End: November 07, 2024 Dr. Christiano Macedo MD Referring Provider Active Start: November 07, 2024 End: November 07, 2024 FOR RECORDS PERTAINING TO PATIENTS WHO ARE OR HAVE BEEN ENROLLED IN A CHEMICAL DEPENDENCY/SUBSTANCEABUSE PROGRAM, SOME INFORMATION MAY BE OMITTED. This clinical summary was aggregated from multiple sources. Caution should be exercised in using it in the provision of clinical care. This summary normalizes information from multiple sources, and as a consequence, information in this document may materially change the coding, format and clinical context of patient data. In addition, data may be omitted in some cases. CLINICAL DECISIONS SHOULD BE BASED ON THE PRIMARY CLINICAL RECORDS. [facility] [employer] provides no warranty or guarantee of the accuracy or completeness of information in this document.
--- OUTSIDE RECORDS SUMMARY | 2024-11-14 08:38 | XMS RPT_ITS | CCD ---
Author Organization [facility] Care Team Providers Care Health Coordinator Name Role Phone RAMSEY ANAYA Unavailable Unavailable JENARO, RAMSEY Unavailable Unavailable JENARO, RAMSEY Unavailable Unavailable JENARO, RAMSEY Unavailable Unavailable Heraclio Green Unavailable Unavailable Heraclio Green Unavailable Unavailable Heraclio [place] Unavailable Unavailable Heraclio Green Primary Care Provider Heraclio Green Unavailable [phone] Heraclio Green Primary Care Provider [phone] AVELINA HAINES Attending Unavailable HERACLIO GREEN Primary Care Unavailable HERACLIO GREEN Admitting Unavailable AVELINA HAINES Attending Unavailable HERACLIO GREEN Referring Unavailable HERACLIO GREEN Primary Care Unavailable YANCY AVELINA NSantos Attending Unavailable HERACLIO GREEN Primary Care [...] to adverse reactions to drug (disorder) 8 [facility] Repository Medications Current Medications Medication Drug [...] mouth daily . 0 Active flu vacc [id number](65yr up)PF (FLUZONE HIGH DOSE) syringe 0.5 mL (1 source) Start: 02-19-2019 End: 02-19-2019 inject 0.5 mL by intramuscular injection every twenty-four hours as needed flu vacc [id number](65yr up)PF (FLUZONE HIGH DOSE) syringe 0.5 mL [...] on 11-08-2024 Study report Skeletal system DXA [facility] Imaging Services [address] [place] [place], [place] [id number] Dexa Bone Density Study MR#: [id number] Acct: [id number] Name: MARIA ELENA ALAN Rep #: [id number] : 1955 F 69 From: Daljit Shah MD PCP: Dr. Christiano Macedo MD Status: JAIME C ALLA Study:Dexa Bone Density Study Date of Exam: 11/07/24 Exam# [id number] Ordering Dr: Christiano Macedo MD PROCEDURE: DEXA [...] Recommend follow-up as clinically warranted. Reading Location: [facility] CC: Dr. Christiano Macedo MD ~ Gasoline Attendant: Signed [facility] Breast imaging reportOrdered By: Jaiden Shah on 11-07-[address] [facility] Imaging Services [address] [place], [place] [address] SCRN MAMM (CAD)W/BRANDT VILLAFUERTEJAYME MR#: [id number] Acct: [id number] Name: MARIA ELENA ALAN Rep #: [id number] : 1955 F 69 From: Daljit Shah MD PCP: Dr. Christiano Macedo MD Status: JAIME GOLD Study:SCRN MAMM (CAD)W/BRANDT BILAT Date of Exa m: 11/07/24 Exam# [id number] Ordering Dr: Christiano Macedo MD EXAM: SCRN [...] be mailed to the patient. Reading Location: [id number] CC: Dr. Christiano Macedo MD ~ Gasoline Attendant: Signed [facility] Dexa Bone Density Studyon Dexa Bone Density Study [facility] Imaging Services [address] [place] [id number] Dexa Bone Density Study MR#: [id number] Acct: [id number] Name: MARIA ELENA ALAN Rep #: [id number] : 1955 F 69 From: Jaiden galvan MD PCP: Dr. Christiano Macedo MD Status: REG CLI Study: Dexa Bone Density Study Date of Exam: 11/07/24 Exam# [id number] Ordering Dr: Christiano Macedo MD PROCEDURE: DEXA [...] Recommend follow-up as clinically warranted. Reading Location: [id number] CC: Dr. Christiano Macedo MD Gasoline Attendant: Signed Normal [facility] SCRN MAMM (CAD)W/BRANDT BILATo n 11-07-2024 SCRN MAMM (CAD)W/BRANDT BILAT [facility] Imaging Services [address] [place], [place] [address] SCRN MAMM (CAD)W/BRANDT BILAT MR#: [id number] Acct: [id number] Name: MARIA ELENA ALAN Rep #: [id number] : 1955 F 69 From: Jaiden galvan MD PCP: Dr. Christiano Macedo MD Status: [facility] Study: SCRN MAMM (CAD)W/BRANDT BILAT Date of Exam: 10/14 11/06 Exam# [id number] Ordering Dr: Christiano Macedo MD EXAM: SCRN [...] be mailed to the patient. Reading Location: [facility] CC: Dr. Christiano Macedo MD Gasoline Attendant: Signed Normal [facility] Anion gap in Serum or Plasma Ordered By: Christiano Macedo on 10-10-2024 Anion gap [Moles/Vol] 12 mmol/L - [facility] BUN/creatinine ratioOrdered By: Christiano Macedo on 10-10-2024 Urea nitrogen/Creatinine [Mass ratio] 15.1 mg/mg - [facility] Basic Metabolic Profile (BMP )on 10-10-2024 BUN/CRE 15.1 RATIO Normal - [facility] Comment on above: Performed By: #### L 500.2500, L500.4100 #### [facility] Laboratory [address] [place], [address] Calcium [Mass/Vol] 9.5 mg/dL Normal 7.6-11.0 [facility] Comment on above: Performed By: #### L 500.2500, L500.4100 #### [facility] [address] [place], [address] Chloride [Moles/Vol] 107 mmol/L Normal 98-108 [facility] Comment on above: Performed By: #### L 500.2500, L500.4100 #### [facility] [address] [place], [address] CO2 [Moles/Vol] 22.7 mmol/L Normal 21.0-32.0 [facility] Comment on above: Performed By: #### L 500.2500, L500.4100 #### [facility] [address] [place], [address] Creatinine [Mass/Vol] 0.92 mg/dL Normal 0.70-1.20 [facility] Comment on above: Performed By: #### L 500.2500, L500.4100 #### [facility] [address] [place], [address] GAP 12 Normal 5-15 [facility] Comment on above: Performed By: #### L 500.2500, L500.4100 #### [facility] [address] [place], [address] GFR/1.73 sq M.predicted among non-blacks MDRD (S/P/Bld) [Vol rate/Area] 67 mL/min/{1.73_m2} Normal >60 [facility] Comment on above: Result Comment: mL/m in/1.73m2 CKD-EPI Creatinine Equation (2020) Performed By: #### L 500.2500, L500.4100 #### [facility] [address] [place], [address] Glucose [Mass/Vol] 96 mg/dL Normal 70-99 [facility] Comment on above: Performed By: #### L 500.2500, L500.4100 #### [facility] [address] [place], [address] Potassium [Moles/Vol] 4.2 mmol/L Normal 3.3-5.1 [facility] Comment on above: Performed By: #### L 500.2500, L500.4100 #### [facility] [address] [place], [address] Sodium [Moles/Vol] 141 mmol/L Normal 133-145 [facility] Comment on above: Performed By: #### L 500.2500, L500.4100 #### [facility] [address] [place], [address] Urea nitrogen [Mass/Vol] 14 mg/dL Normal 4-19 [facility] Comment on above: Performed By: #### L 500.2500, L500.4100 #### [facility] [address] [place], [address] Calculated very low density lipoprotein (VLDL) cholesterol measurementOrdered By: Christiano Macedo on 10-10-2024 Calculated very low density lipoprotein (VLDL) cholesterol measurement 15 mg/dL 5-40 [facility] Carbon dioxide, total [Moles /volume] in Central venous bloodOrdered By: Christiano Macedo on 10-10-2024 CO2 [Moles/Vol] 22.7 mmol/L 21.0-32.0 [facility] Chloride assayOrdered By: Chuckie Macedo on 10-10-2024 Chloride [Moles/Vol] 107 mmol/L 98-108 [facility] Glomerular filtration rate ( GFR) estimation/1.73 sq m using serum, plasma, or whole bOrdered By: Christiano Macedo on 10-10-2024 GFR/1.73 sq M.predicted among non-blacks MDRD (S/P/Bld) [Vol rate/Area] 67 mL/min/{1.73_m2} >60 [facility] Comment on above: mL/min/1.73m2 CKD-EP I Creatinine Equation (2020) LDL calc ser/plasOrdered By: Christiano Macedo on 10-10-2024 Cholesterol in LDL [Mass/Vol] 114 mg/dL [facility] Comment on above: Rhwjiqqmup=270-821 m g/dL & Higher Grhu=660 mg/dL or greater Lipid Profileon 10-10-2024 CHOL:HDL 2.43 Normal [facility] Comment on above: Performed By: #### L 500.2500, L500.4100 #### [facility] [address] [place], [address] Cholesterol [Mass/Vol] 220 mg/dL High <=200 [facility] Comment on above: Result Comment: Chol esterol level, Desirable <200 mg/dL Borderline high cholesterol 200-239 mg/dL High cholesterol >=240 mg/dL Recommendations of the NCEP Adult Treatment Panel for the following risk-cutoff thresholds for the [place] population. Performed By: #### L 500.2500, L500.4100 #### [facility] [address] [place], [address] Cholesterol in HDL [Mass/Vol] 91 mg/dL Normal [facility] Comment on above: Result Comment: [place] onal Cholesterol Education Program (NCEP) guidelines: <40 mg/dL: Low HDL-cholesterol (major risk factor for CHD) >= 60 mg/dL: High HDL-cholesterol (negative risk factor for CHD) HDL-cholesterol is affected by a number of factors, e.g. smoking, exercise, hormones, sex and age. Performed By: #### L 500.2500, L500.4100 #### [facility] [address] [place], [address] Cholesterol in LDL [Mass/Vol] 114 mg/dL Normal [facility] Comment on above: Result Comment: Bord xapngd=128-082 mg/dL Higher Ifnc=939 mg/dL or greater Performed By: #### L 500.2500, L500.4100 #### [facility] [address] [place], [address] Cholesterol in VLDL [Mass/Vol] 15 mg/dL Normal 5-40 [facility] Comment on above: Performed By: #### L 500.2500, L500.4100 #### [facility] [address] [place], [address] Triglyceride [Mass/Vol] 75 mg/dL Normal [facility] Comment on above: Result Comment: The drugs N-Acetylcysteine and Metamizole may falsely depress this assay. Normal range: <150 mg/dL Borderline High: 150-199 mg/dL High: 200-499 mg/dL Very High: >500 mg/dL Performed By: #### L 500.2500, L500.4100 #### [facility] [address] [place], [address] Potassium measurement (mass/ volume)Ordered By: Christiano Macedo on 10-10-2024 Potassium (Unsp spec) [Mass/Vol] 4.2 mmol/L 3.3-5.1 [facility] Screening total cholesterol/ high density lipoprotein (HDL) cholesterol ratioOrdered By: Christiano Macedo on 10-10-2024 Cholesterol.total/Chol esterol in HDL [Mass ratio] 2.43 {ratio} [facility] Serum creatinine measurement (mass/volume)Ordered By: Christiano Macedo on 10-10-2024 Creatinine [Mass/Vol] 0.92 mg/dL 0.70-1.20 [facility] Serum glucose measurement (m ass/volume)Ordered By: Christiano Macedo on 10-10-2024 Glucose [Mass/Vol] 96 mg/dL 70-99 [facility] Serum or plasma calcium jimbo urement (mass/volume)Ordered By: Christiano Macedo on 10-10-2024 Calcium [Mass/Vol] 9.5 mg/dL 7.6-11.0 [facility] Serum or plasma cholesterol in HDL measurement (mass/volume)Ordered By: Christiano Macedo on 10-10-2024 Cholesterol in HDL [Mass/Vol] 91 mg/dL >40 [facility] Comment on above: National Cholesterol Education Program (NCEP) guidelines:<40 mg/dL: Low HDL-cholesterol (major risk factor for CHD)>= 60 mg/dL: High HDL-cholesterol (negative risk factor for CHD)HDL-cholesterol is affected by a number of factors, e.g. smoking, exercise, hormones, sex and age. Serum or plasma cholesterol measurement (mass/volume)Ordered By: Christiano Macedo on 10-10-2024 Cholesterol [Mass/Vol] 220 mg/dL High <201 [facility] Comment on above: Cholesterol level, D esirable <200 mg/dLBorderline high cholesterol 200-239 mg/dLHigh cholesterol >=240 mg/dLRecommendations of the NCEP Adult Treatment Panel for the following risk-cutoff thresholds for the [place] population. Serum or plasma urea nitroge n measurement (mass/volume)Ordered By: Christiano Macedo on 10-10-2024 Urea nitrogen [Mass/Vol] 14 mg/dL 4-19 [facility] Sodium levelOrdered By: Christiano Macedo on 10-10-2024 Sodium [Moles/Vol] 141 mmol/L 133-145 [facility] Triglycerides measurementOrd ered By: Christiano Macedo on 10-10-2024 Triglyceride [Mass/Vol] 75 mg/dL <199 [facility] Comment on above: The drugs N-Acetylcy steine and Metamizole may falsely depress this assay. Normal range: <150 mg/dLBorderline High: 150-199 mg/dLHigh: 200-499 mg/dLVery High: >500 mg/dL H. PYLORI STOOL AGon 025 H PYLORI STL AG Positive Abnormal Negative [facility] Comment on above: Result Comment: Perf ormed at: [employer] [facility] [place] [id number] Branch Examiner: Tavo Xiong PhD, Phone: [phone] Performed By: #### L 3100.1950 #### [facility] [address] [place], [address] Stool Helicobacter pylori an tigen detection by immunoassayOrdered By: Tavo Enriquez on 07-08-2024 H. pylori Ag IA Ql (Stl) Positive High Negative [facility] Comment on above: Performed at: [facility] [address] [id number] Director: Tavo Xiong PhD, Phone: [phone] Esophagus Dual Contraston Esophagus Dual Contrast [facility] Imaging Services [address] [place] [address] Esophagus Dual Contrast MR#: [id number] Acct: [id number] Name: MARIA ELENA ALAN Rep #: [id number] : 1955 F 68 From: Jaiden galvan MD PCP: Dr. Christiano Macedo MD Status: REG CLI Study: Esophagus Dual Contrast Date of Exam: 01/29/24 Exam# [id number] Ordering Dr: [place] [id number] STUDY: X-RAY - ESOPHAGUS (BARIUM SWALLOW) WITH [...] Christiano Macedo MD; Dr. Tavo Enriquez MD Gasoline Attendant: Signed Normal [facility] Basophil percentageOrdered B y: Christiano Macedo on 05-01-2023 Chloride [Moles/Vol] 105 mmol/L 98-107 [facility] Glucose [Mass/Vol] 96 mg/dL 74-106 [facility] Potassium [Moles/Vol] 3.8 mmol/L 3.5-5.1 [facility] Sodium [Moles/Vol] 140 mmol/L 136-145 [facility] Laboratory - Chemistry and C hemistry - challengeOrdered By: Christiano Macedo on 05-01-2023 CO2 [Moles/Vol] 27.0 mmol/L 21.0-32.0 [facility] Urea nitrogen/Creatinine [Mass ratio] 17.5 mg/mg 10-20 [facility] No Panel InformationOrdered By: Christiano Macedo on 05-01-2023 Estimated GFR (MDRD) Amer 68 mL/min >60 [facility] Comment on above: GFR Calc Estimated GFR (MDRD) Non-Af Amer 56 mL/min >60 [facility] Comment on above: Non- GFR Calc Serum or plasma calcium jimbo urement (mass/volume)Ordered By: Christiano Macedo on 05-01-2023 Calcium [Mass/Vol] 8.9 mg/dL 8.5-10.1 [facility] Serum or plasma creatinine m easurement (mass/volume)Ordered By: Christiano Macedo on 05-01-2023 Creatinine [Mass/Vol] 1.03 mg/dL 0.55-1.02 [facility] Comment on above: The validity of the calculated GFR & GFRAA in patients over 70 years has not been determined. Clinical correlation is essential. Serum or plasma urea nitroge n measurement (mass/volume)Ordered By: Christiano Macedo on 05-01-2023 Urea nitrogen [Mass/Vol] 18 mg/dL -18 [facility] Thin prep Papanicolaou smear with manual screeningOrdered By: Christiano Macedo on 05-01-2023 Thin prep Papanicolaou smear with manual screening 8 5-15 [facility] Basophil percentageOrdered B y: Christiano Macedo on 03-24-2023 Chloride [Moles/Vol] 102 mmol/L 98-107 [facility] Cholesterol [Mass/Vol] 189 mg/dL <200 [facility] Comment on above: <200 mg/dL Desirable 200-240 mg/dL Borderline >240 mg/dL High Risk Glucose [Mass/Vol] 121 mg/dL 74-106 [facility] Comment on above: Fasting Glucose resu lt from 100 to 125 mg/dL suggests IMPAIRED HOMEOSTASIS per A.D.A. criteria. Potassium [Moles/Vol] 2.9 mmol/L 3.5-5.1 [facility] Sodium [Moles/Vol] 134 mmol/L 136-145 [facility] Triglyceride [Mass/Vol] 80 mg/dL <199 [facility] Comment on above: The drugs N-Acetylcy steine and Metamizole may falsely depress this assay.Serum Triglycerides Reference Interval Normal <150 mg/dL Borderline high 150 - 199 mg/dL High 200 - 499 mg/dL Very High > or = 500 mg/dL Laboratory - Chemistry and C hemistry - challengeOrdered By: Christiano Macedo on 03-24-2023 CO2 [Moles/Vol] 30.0 mmol/L 21.0-32.0 [facility] Urea nitrogen/Creatinine [Mass ratio] 16.2 mg/mg 10-20 [facility] No Panel InformationOrdered By: Christiano Macedo on 03-24-2023 Estimated GFR (MDRD) Amer 67 mL/min >60 [facility] Comment on above: GFR Calc Estimated GFR (MDRD) Non-Af Amer 55 mL/min >60 [facility] Comment on above: Non- GFR Calc Serum or plasma calcium jimbo urement (mass/volume)Ordered By: Christiano Macedo on 03-24-2023 Calcium [Mass/Vol] 9.2 mg/dL 8.5-10.1 [facility] Serum or plasma cholesterol in HDL measurement (mass/volume)Ordered By: Christiano Macedo on 03-24-2023 Cholesterol in HDL [Mass/Vol] 94 mg/dL >40 [facility] Comment on above: The drugs N-Acetylcy steine and Metamizole may falsely depress this assay. Reference Range HDL <40 mg/dL Low HDL Cholesterol HDL >or= 60 mg/dL High HDL Cholesterol Serum or plasma cholesterol in VLDL measurement (mass/volume)Ordered By: Christiano Macedo on 03-24-2023 Cholesterol in VLDL [Mass/Vol] 16 mg/dL 5-40 [facility] Serum or plasma creatinine m easurement (mass/volume)Ordered By: Christiano Macedo on 03-24-2023 Creatinine [Mass/Vol] 1.05 mg/dL 0.55-1.02 [facility] Comment on above: The validity of the calculated GFR & GFRAA in patients over 70 years has not been determined. Clinical correlation is essential. Serum or plasma low density lipoprotein (LDL) cholesterol measurement (mass/volume)Ordered By: Christiano Macedo on 03-24-2023 Cholesterol in LDL [Mass/Vol] 79 mg/dL 0-130 [facility] Serum or plasma urea nitroge n measurement (mass/volume)Ordered By: Christiano Macedo on 03-24-2023 Urea nitrogen [Mass/Vol] 17 mg/dL 7-18 [facility] Thin prep Papanicolaou smear with manual screeningOrdered By: Christiano Macedo on 03-24-2023 Thin prep Papanicolaou smear with manual screening 2 5-15 [facility] Basophil percentageOrdered B y: Christiano Macedo on 10-06-2022 Chloride [Moles/Vol] 108 mmol/L 98-107 [facility] Cholesterol [Mass/Vol] 186 mg/dL <200 [facility] Comment on above: <200 mg/dL Desirable 200-240 mg/dL Borderline >240 mg/dL High Risk Glucose [Mass/Vol] 91 mg/dL 74-106 [facility] Potassium [Moles/Vol] 3.6 mmol/L 3.5-5.1 [facility] Sodium [Moles/Vol] 141 mmol/L 136-145 [facility] Triglyceride [Mass/Vol] 86 mg/dL <199 [facility] Comment on above: The drugs N-Acetylcy steine and Metamizole may falsely depress this assay.Serum Triglycerides Reference Interval Normal <150 mg/dL Borderline high 150 - 199 mg/dL High 200 - 499 mg/dL Very High > or = 500 mg/dL Laboratory - Chemistry and C hemistry - challengeOrdered By: Christiano Macedo on 10-06-2022 CO2 [Moles/Vol] 29.0 mmol/L 21.0-32.0 [facility] Urea nitrogen/Creatinine [Mass ratio] 19.5 mg/mg 10-20 [facility] No Panel InformationOrdered By: Christiano Macedo on 10-06-2022 Estimated GFR (MDRD) Amer 73 mL/min >60 [facility] Comment on above: GFR Calc Estimated GFR (MDRD) Non-Af Amer 60 mL/min >60 [facility] Comment on above: Non- GFR Calc Vitamin D 25-Hydroxy 28.0 ng/mL [facility] Comment on above: Vitamin D 25(OH) Sta tus Range Deficiency <20 ng/mL (50nmol/L) Insufficiency 20 - 30 ng/mL (50 - 75 nmol/L) Sufficiency 30 - 100 ng/mL (75 - 250 nmol/L) Toxicity >100 ng/mL (>250 nmol/L) Serum or plasma calcium jimbo urement (mass/volume)Ordered By: Christiano Macedo on 10-06-2022 Calcium [Mass/Vol] 9.5 mg/dL 8.5-10.1 [facility] Serum or plasma cholesterol in HDL measurement (mass/volume)Ordered By: Christiano Macedo on 10-06-2022 Cholesterol in HDL [Mass/Vol] 93 mg/dL >40 [facility] Comment on above: The drugs N-Acetylcy steine and Metamizole may falsely depress this assay. Reference Range HDL <40 mg/dL Low HDL Cholesterol HDL >or= 60 mg/dL High HDL Cholesterol Serum or plasma cholesterol in VLDL measurement (mass/volume)Ordered By: Christiano Macedo on 10-06-2022 Cholesterol in VLDL [Mass/Vol] 17 mg/dL 5-40 [facility] Serum or plasma creatinine m easurement (mass/volume)Ordered By: Christiano Macedo on 10-06-2022 Creatinine [Mass/Vol] 0.97 mg/dL 0.55-1.02 [facility] Comment on above: The validity of the calculated GFR & GFRAA in patients over 70 years has not been determined. Clinical correlation is essential. Serum or plasma low density lipoprotein (LDL) cholesterol measurement (mass/volume)Ordered By: Christiano Macedo on 10-06-2022 Cholesterol in LDL [Mass/Vol] 76 mg/dL 0-130 [facility] Serum or plasma urea nitroge n measurement (mass/volume)Ordered By: Christiano Macedo on 10-06-2022 Urea nitrogen [Mass/Vol] 19 mg/dL 7-18 [facility] Thin prep Papanicolaou smear with manual screeningOrdered By: Christiano Macedo on 10-06-2022 Thin prep Papanicolaou smear with manual screening 4 5-15 [facility] Basophil percentageon 2021 Chloride [Moles/Vol] 110 mmol/L 98-107 [facility] Work Phone: Cholesterol [Mass/Vol] 155 mg/dL <200 [facility] Work Phone: Comment on above: <200 mg/dL Desirable 200-240 mg/dL Borderline >240 mg/dL High Risk Glucose [Mass/Vol] 87 mg/dL 74-106 [facility] Work Phone: Potassium [Moles/Vol] 3.7 mmol/L 3.5-5.1 [facility] Work Phone: Sodium [Moles/Vol] 142 mmol/L 136-145 [facility] Work Phone: Triglyceride [Mass/Vol] 58 mg/dL <199 [facility] Work Phone: Comment on above: The drugs N-Acetylcy steine and Metamizole may falsely depress this assay.Serum Triglycerides Reference Interval Normal <150 mg/dL Borderline high 150 - 199 mg/dL High 200 - 499 mg/dL Very High > or = 500 mg/dL Laboratory - Chemistry and C hemistry - challengeon 03-25-2022 CO2 [Moles/Vol] 27.0 mmol/L 21.0-32.0 [facility] Work Phone: Urea nitrogen/Creatinine [Mass ratio] 20.8 mg/mg 10-20 [facility] Work Phone: No Panel Informationon 03-25 Estimated GFR (MDRD) Amer 70 mL/min >60 [facility] Work Phone: Comment on above: GFR Calc Estimated GFR (MDRD) Non-Af Amer 58 mL/min >60 [facility] Work Phone: Comment on above: Non- GFR Calc Serum or plasma calcium jimbo urement (mass/volume)on 03-25-2022 Calcium [Mass/Vol] 9.0 mg/dL 8.5-10.1 [facility] Work Phone: Serum or plasma cholesterol in HDL measurement (mass/volume)on 03-25-2022 Cholesterol in HDL [Mass/Vol] 83 mg/dL >40 [facility] Work Phone: Comment on above: The drugs N-Acetylcy steine and Metamizole may falsely depress this assay. Reference Range HDL <40 mg/dL Low HDL Cholesterol HDL >or= 60 mg/dL High HDL Cholesterol Serum or plasma cholesterol in VLDL measurement (mass/volume)on 03-25-2022 Cholesterol in VLDL [Mass/Vol] 12 mg/dL 5-40 [facility] Work Phone: Serum or plasma creatinine m easurement (mass/volume)on 03-25-2022 Creatinine [Mass/Vol] 1.01 mg/dL 0.55-1.02 [facility] Work Phone: Comment on above: The validity of the calculated GFR & GFRAA in patients over 70 years has not been determined. Clinical correlation is essential. Serum or plasma low density lipoprotein (LDL) cholesterol measurement (mass/volume)on 03-25-2022 Cholesterol in LDL [Mass/Vol] 60 mg/dL 0-130 [facility] Work Phone: Serum or plasma urea nitroge n measurement (mass/volume)on 03-25-2022 Urea nitrogen [Mass/Vol] 21 mg/dL 7-18 [facility] Work Phone: Thin prep Papanicolaou smear with manual screeningon 03-25-2022 Thin prep Papanicolaou smear with manual screening 5 5-15 [facility] Work Phone: Basophil percentageon 2021 Chloride [Moles/Vol] 107 mmol/L 98-[address] [facility] Work Phone: Cholesterol [Mass/Vol] 243 mg/dL <200 [place] [facility] Work Phone: Comment on above: <200 mg/dL Desirable 200-240 mg/dL Borderline >240 mg/dL High Risk Glucose [Mass/Vol] 94 mg/dL 74-106 [place] [facility] Work Phone: Potassium [Moles/Vol] 3.4 mmol/L 3.5-5.1 [facility] Work Phone: Sodium [Moles/Vol] 140 mmol/L 136-145 [facility] Work Phone: Triglyceride [Mass/Vol] 88 mg/dL <199 [facility] Work Phone: Comment on above: The drugs N-Acetylcy steine and Metamizole may falsely depress this assay.Serum Triglycerides Reference Interval Normal <150 mg/dL Borderline high 150 - 199 mg/dL High 200 - 499 mg/dL Very High > or = 500 mg/dL Laboratory - Chemistry and C hemistry - challengeon 09-28-2021 CO2 [Moles/Vol] 28.0 mmol/L 21.0-32.0 [facility] Work Phone: Urea nitrogen/Creatinine [Mass ratio] 18.0 mg/mg 10-20 [facility] Work Phone: No Panel Informationon 09-28 Estimated GFR (MDRD) Amer 63 mL/min >60 [facility] Work Phone: Comment on above: GFR Calc Estimated GFR (MDRD) Non-Af Amer 52 mL/min >60 [facility] Work Phone: Comment on above: Non- GFR Calc Vitamin D 25-Hydroxy 38.4 ng/mL [facility] Work Phone: Comment on above: Vitamin D 25(OH) Sta tus Range Deficiency <20 ng/mL (50nmol/L) Insufficiency 20 - 30 ng/mL (50 - 75 nmol/L) Sufficiency 30 - 100 ng/mL (75 - 250 nmol/L) Toxicity >100 ng/mL (>250 nmol/L) Serum or plasma calcium jimbo urement (mass/volume)on 09-28-2021 Calcium [Mass/Vol] 9.4 mg/dL 8.5-10.1 [facility] Work Phone: Serum or plasma cholesterol in HDL measurement (mass/volume)on 09-28-2021 Cholesterol in HDL [Mass/Vol] 83 mg/dL >40 [facility] Work Phone: Comment on above: The drugs N-Acetylcy steine and Metamizole may falsely depress this assay. Reference Range HDL <40 mg/dL Low HDL Cholesterol HDL >or= 60 mg/dL High HDL Cholesterol Serum or plasma cholesterol in VLDL measurement (mass/volume)on 09-28-2021 Cholesterol in VLDL [Mass/Vol] 18 mg/dL 5-40 [facility] Work Phone: Serum or plasma creatinine m easurement (mass/volume)on 09-28-2021 Creatinine [Mass/Vol] 1.11 mg/dL 0.55-1.02 [facility] Work Phone: Comment on above: The validity of the calculated GFR & GFRAA in patients over 70 years has not been determined. Clinical correlation is essential. Serum or plasma low density lipoprotein (LDL) cholesterol measurement (mass/volume)on 09-28-2021 Cholesterol in LDL [Mass/Vol] 142 mg/dL 0-130 [facility] Work Phone: Serum or plasma urea nitroge n measurement (mass/volume)on 09-28-2021 Urea nitrogen [Mass/Vol] 20 mg/dL 7-18 [facility] Work Phone: Thin prep Papanicolaou smear with manual screeningon 09-28-2021 Thin prep Papanicolaou smear with manual screening 5 5-15 [facility] Work Phone: Basic Metabolic Panelon 01-14 Anion gap [Moles/Vol] 11 mmol/L 10 - 2 0 mmol/L [facility] Calcium [Mass/Vol] 8.9 mg/dL 8.4 - 10. 2 mg/dL [facility] Chloride [Moles/Vol] 114 mmol/L High 98 - 10 8 mmol/L [facility] Creatinine [Mass/Vol] 0.96 mg/dL 0.6 - 1.2 mg/dL [facility] GFR/1.73 sq M predicted among non-blacks MDRD (S/P/Bld) [Vol rate/Area] The eGFR should be used for monitoring renal function only and not for medication dosing. [facility] GFR/1.73 sq M.predicted CKD-EPI (S/P/Bld) [Vol rate/Area] 62 >=60 mL/min/1.73 m2 [facility] Glucose [Mass/Vol] 88 mg/dL 65 - 99 mg/dL [facility] HCO3 [Moles/Vol] 24 mmol/L 21 - 32 mmol/L [facility] Interpretation and review of laboratory results Abnormal [facility] Potassium [Moles/Vol] 4.2 mmol/L 3.5 - 5.1 mmol/L [facility] Sodium [Moles/Vol] 145 mmol/L 135 - 145 mmol/L [facility] Urea nitrogen [Mass/Vol] 11 mg/dL 8 - 25 mg/dL [facility] Urea nitrogen/Creatinine [Mass ratio] 11.5 mg/mg [facility] CBCon 02-08-2019 Erythrocyte distribution width (RBC) [Entitic vol] 13.3 % 11.6 - 14.8 % [facility] Hematocrit (Bld) [Volume fraction] 34.3 % Low 36 - 46 % [facility] Hemoglobin (Bld) [Mass/Vol] 11.3 g/dL Low 12 - 16 g/dL [facility] Interpretation and review of laboratory results Abnormal [facility] MCH (RBC) [Entitic mass] 30.9 pg 26 - 34 pg [facility] MCHC (RBC) [Mass/Vol] 32.9 g/dL 31 - 37 g/dL [facility] MCV (RBC) [Entitic vol] 93.7 fL 80 - 100 fL [facility] Nucleated RBC (Bld) [#/Vol] 0.00 10*3/uL [facility] Nucleated RBC/100 WBC (Bld) [Ratio] 0.0 % [facility] Platelet mean volume (Bld) [Entitic vol] 9.6 fL 9 - 15.5 fL [facility] Platelets (Bld) [#/Vol] 264 10*3/uL [facility] RBC (Bld) [#/Vol] 3.66 10*6/uL Low [facility] WBC (Bld) [#/Vol] 5.49 10*3/uL [facility] P[facility] H. Pylori Teston [address] [facility] Interpretation and review of laboratory results Abnormal [facility] Lot Number [id number] [facility] POC H. Pylori Positive Abnormal Negative [facility] Mamm Screen w/CAD if perf ormed bilaton 02-09-2018 [place] Mamm Screen w/CAD if performed bilat Exam Date/Time:02/09/2018 13:18 EDTReason for Exam:SCREENINGReportSTU DY:Digital mammography screening; 02/09/2018 1:18 pmACCESSION NUMBER(S):[id number] 500ORDERING CLINICIAN:Heraclio AlvarezICATION:Screen ing.COMPARISON:Comparis on is made [...] Category 1-NegativeRecommendatio n: Normal interval follow-up Normal [facility] PROGRESSon 02-02-2018 [facility] NOTES Normal [facility] PROGRESSon 08-07-2017 [facility] NOTES Normal [facility] Vital Signs Date Time Vital Sign Value Performing Clinician Facility 11-09-2022 09:01-0400 Body temperature 98 [degF] Dr. Christiano Macedo Work Phone: [facility] 11-09-2022 09:01-0400 Diastolic blood pressure 70 mm[Hg] Dr. Christiano Macedo Work Phone: [facility] 11-09-2022 09:01-0400 Heart rate 81 /min Dr. Christiano Macedo Work Phone: [facility] 11-09-2022 09:01-0400 Respiratory rate 16 /min Dr. Christiano Macedo Work Phone: [facility] 11-09-2022 09:01-0400 SaO2% (BldA) [Mass fraction] 97 % Dr. Christiano Macedo Work Phone: [facility] 11-09-2022 09:01-0400 Systolic blood pressure 104 mm[Hg] Dr. Christiano Macedo Work Phone: [facility] 10-26-2022 10:52-0400 Body height 152.[address] Christiano Macedo Work Phone: [facility] 10-26-2022 10:52-0400 Body mass index (BMI) [Ratio] 23.4 kg/m2 Dr. Christiano Macedo Work Phone: [facility] 10-26-2022 10:52-0400 Body weight 54.[address] Christiano Macedo Work Phone: [facility] 01-24-2020 09:05-0400 BMI (Body Mass Index) 25 kg/m2 [facility] 01-24-2020 09:05-0400 Body weight 58.06 kg [facility] 01-24-2020 09:05-0400 BP Diastolic 90 mm[Hg] [facility] 01-24-2020 09:05-0400 BP Systolic 150 mm[Hg] [facility] 01-24-2020 09:05-0400 Height 152.4 cm [facility] 01-24-2020 09:05-0400 Pulse (Heart Rate) 66 /min [facility] 01-24-2020 09:05-0400 Respiratory Rate 16 /min [facility] 03-06-2019 10:31-0400 BMI (Body Mass Index) 20.06 kg/m2 [facility] 03-06-2019 10:31-0400 Body Temperature 98.29 [degF] [facility] 03-06-2019 10:31-0400 Body weight 45.04 kg [facility] 03-06-2019 10:31-0400 BP Diastolic 72 mm[Hg] [facility] 03-06-2019 10:31-0400 BP Systolic 106 mm[Hg] Javiiain Weinstein [facility] 03-06-2019 10:31-0400 [facility]9 [facility] 03-06-2019 10:31-0400 Pulse (Heart Rate) 64 /min Javiiain Weinstein [facility] 03-06-2019 10:31-0400 Pulse Oximetry 97 % [facility] 02-19-2019 13:09-0400 Body Temperature 98.91 [degF] [facility] 02-19-2019 13:09-0400 BP Diastolic 75 mm[Hg] [facility] 02-19-2019 13:09-0400 BP Systolic 151 mm[Hg] [facility] 02-19-2019 13:09-0400 Pulse (Heart Rate) 67 /min [facility] 02-19-2019 13:09-0400 Pulse Oximetry 100 % [facility] 02-19-2019 08:31-0400 Respiratory Rate 14 /min [facility] 02-18-2019 08:19-0400 BMI (Body Mass Index) 21.73 kg/m2 [facility] 02-18-2019 08:19-0400 Body weight 48.8 kg [facility] 02-18-2019 08:190400 Height 149.9 cm [facility] 02-14-2019 08:21-0400 BMI (Body Mass Index) 21.75 kg/m2 [facility] 02-14-2019 08:21-0400 Body Temperature 98.49 [degF] [facility] 02-14-2019 08:21-0400 Body weight 48.85 kg [facility] 02-14-2019 08:21-0400 BP Diastolic 84 mm[Hg] [facility] 02-14-2019 08:21-0400 BP Systolic 144 mm[Hg] [facility] 02-14-2019 08:21-0400 Height 149.9 cm [facility] 02-14-2019 08:21-0400 Pulse (Heart Rate) 62 /min [facility] 02-14-2019 08:21-0400 Pulse Oximetry 100 % [facility] 02-08-2019 08:08-0400 BMI (Body Mass Index) 21.81 kg/m2 Room [facility] 02-08-2019 08:08-0400 Body weight 48.99 kg Room [facility] 02-08-2019 08:08-0400 Height 149.9 cm [facility] 02-08-2019 08:04-0400 BP Diastolic 75 mm[Hg] [facility] 02-08-2019 08:04-0400 BP Systolic 147 mm[Hg] [facility] 02-08-2019 08:04-0400 Pulse (Heart Rate) 53 /min [facility] 02-08-2019 08:04-0400 Pulse Oximetry 100 % [facility] 01-11-2019 11:17-0400 BMI (Body Mass Index) 21.09 kg/m2 [facility] 01-11-2019 11:17-0400 Body weight 48.99 kg [facility] 01-11-2019 11:17-0400 BP Diastolic 86 mm[Hg] [facility] 01-11-2019 11:17-0400 BP Systolic 134 mm[Hg] [facility] 01-11-2019 11:17-0400 Height 152.4 cm [facility] 01-11-2019 11:17-0400 Pulse (Heart Rate) 56 /min [facility] 01-11-2019 11:17-0400 Respiratory Rate 18 /min [facility] 01-09-2019 10:49-0400 BMI (Body Mass Index) 21.79 kg/m2 [facility] 01-09-2019 10:49-0400 Body Temperature 98.8 [degF] [facility] 01-09-2019 10:49-0400 Body weight 48.94 kg [facility] 01-09-2019 10:49-0400 BP Diastolic 82 mm[Hg] [facility] 01-09-2019 10:49-0400 BP Systolic 157 mm[Hg] [facility] 01-09-2019 10:49-0400 Height 149.9 cm [facility] 01-09-2019 10:49-0400 Pulse (Heart Rate) 62 /min [facility] 01-09-2019 10:49-0400 Pulse Oximetry 98 % [facility] 12-11-2018 11:00-0400 BP Diastolic 61 mm[Hg] [facility] 12-11-2018 11:00-0400 BP Systolic 123 mm[Hg] [facility] 12-11-2018 11:00-0400 Pulse (Heart Rate) 45 /min [facility] 12-11-2018 11:00-0400 Pulse Oximetry 100 % [facility] 12-11-2018 11:00-0400 Respiratory Rate 19 /min [facility] 12-11-2018 07:58-0400 BMI (Body Mass Index) 21.37 kg/m2 [facility] 12-11-2018 07:58-0400 Body Temperature 97.81 [degF] [facility] 12-11-2018 07:58-0400 Body weight 49.22 kg [facility] 12-11-2018 07:58-0400 Height 151.8 cm [facility] 11-07-2018 13:59-0400 BMI (Body Mass Index) 21.29 kg/m2 [facility] 11-07-2018 13:59-0400 Body Temperature 99.3 [degF] [facility] 11-07-2018 13:59-0400 BP Diastolic 87 mm[Hg] [facility] 11-07-2018 13:59-0400 BP Systolic 161 mm[Hg] [facility] 11-07-2018 13:59-0400 Height 151.8 cm [facility] 11-07-2018 13:59-0400 Pulse (Heart Rate) 82 /min [facility] 11-07-2018 13:59-0400 Pulse Oximetry 99 % [facility] 11-07-2018 13:59-0400 Weight 49.03 kg [facility] 10-10-2018 08:40-0400 BP Diastolic 69 mm[Hg] Avelina [facility] 10-10-2018 08:40-0400 BP Systolic 119 mm[Hg] [facility] 10-10-2018 08:40-0400 Pulse (Heart Rate) 62 /min [facility] 10-10-2018 08:40-0400 Pulse Oximetry 99 % [facility] 10-10-2018 08:40-0400 Respiratory Rate 14 /min [facility] 10-10-2018 08:13-0400 Body Temperature 98.01 [degF] [facility] 10-10-2018 07:21-0400 BMI (Body Mass Index) 20.7 kg/m2 [facility] 10-10-2018 07:21-0400 Height 152.4 cm [facility] 10-10-2018 07:21-0400 Weight 48.08 kg [facility] 09-19-2018 10:16-0400 BMI (Body Mass Index) 20.8 kg/m2 [facility] 09-19-2018 10:16-0400 Body Temperature 97.7 [degF] [facility] 09-19-2018 10:16-0400 BP Diastolic 79 mm[Hg] [facility] 09-19-2018 10:16-0400 BP Systolic 165 mm[Hg] [facility] 09-19-2018 10:16-0400 Height 152.4 cm [facility] 09-19-2018 10:16-0400 Pulse (Heart Rate) 67 /min [facility] 09-19-2018 10:16-0400 Pulse Oximetry 98 % [facility] 09-19-2018 10:16-0400 Weight 48.31 kg [facility] Encounters Encounter Date Encounter Type Care Provider Facility Start: 11-14-2024 ambulatory Christiano Macedo Facility:[facility] Start: 11-07-2024 End: 11-07-[address] Christiano Macedo MD Work Phone: -Outpatient Bone Densitometry Start: 11-07-2024 End: 11-07-[address] Christiano Macedo MD -Outpatient Bone Densitometry Work Phone: Start: 11-07-2024 End: 11-07-2024 ambulatory Christiano Macedo Facility:[facility] Start: 10-15-2024 Encounter for genera l adult medical examination without abnormal findings Christiano Macedo [facility] Start: 10-10-2024 End: 10-10-[address] Christiano Macedo MD Work Phone: [facility] Work Phone: Start: 10-10-2024 End: 10-10-[address] Christiano Macedo MD -Laboratory [facility] Start: 10-10-2024 End: 10-10-2024 ambulatory Christiano Macedo Facility:[facility] Start: 07-08-2024 End: 07-08-[address] Tavo Enriquez MD -Laboratory [place] Work Phone: Start: 07-08-2024 End: 07-08-2024 ambulatory Christiano Macedo Facility:[facility] Start: 01-29-2024 End: 01-29-2024 ambulatory Tavo Enriquez Facility:[facility] Start: 05-01-2023 End: 05-01-2023 ambulatory [facility] Work Phone: Start: 05-01-2023 End: 05-01-2023 Patient encounter procedure [facility] Start: 03-24-2023 End: 03-24-2023 ambulatory [facility] Work Phone: Start: 03-24-2023 End: 03-24-2023 Patient encounter procedure [facility] Work Phone: Start: 11-09-2022 Non-patient / Non-visit Dr. Chuckie Macedo Work Phone: [facility] Start: 11-09-2022 End: 11-09-2022 Admission to same day surgery center Dr. Christiano Macedo Work Phone: [facility]-Endoscopy Work Phone: Start: 10-26-2022 Non-patient / Non-visit Dr. Chuckie Macedo Work Phone: [facility] Work Phone: Start: 10-06-2022 End: 10-06-[address] Christiano Macedo Work Phone: [facility] Work Phone: Start: 10-06-2022 End: 10-06-[address] Christiano Macedo Work Phone: [facility] Start: 03-25-2022 End: 03-25-2022 ambulatory [facility] Work Phone: Start: 03-25-2022 End: 03-25-2022 Patient encounter procedure [facility] Start: 10-26-2021 End: 10-26-2021 Patient encounter procedure [facility]-Outpatient Bone Densitometry Start: 09-28-2021 End: 09-28-2021 Patient encounter procedure [facility] Start: 06-22-2020 End: 06-22-2020 Orders Only Lis Solomon Work Phone: [facility] Start: 01-24-2020 End: 01-24-2020 Office outpatient visit 15 minutes Ramsey Anaya Work Phone: [facility] Neurology Comment on above: Intractable headache , unspecified chronicity pattern, unspecified headache type Start: 03-06-2019 End: 03-06-2019 Patient encounter procedure [facility] Start: 03-06-2019 End: 03-06-2019 Postop follow up visit related to original px Javi Weinstein Work Phone: [facility] Comment on above: Status post laparosc opic Shanthi fundoplication (Primary Dx) Start: 02-18-2019 End: 02-19-2019 Evaluation and management of inpatient [facility] Start: 02-18-2019 End: 02-19-2019 Evaluation and management of inpatient [facility] Work Phone: [facility] Comment on above: Slipped Shanthi fundo plication; Hiatal hernia with GERD without esophagitis Start: 02-14-2019 End: 02-14-2019 Patient encounter procedure [facility] Start: 02-14-2019 End: 02-14-2019 Office outpatient visit 25 minutes [facility] Comment on above: Slipped Shanthi fundo plication (Primary Dx); Hiatal hernia with GERD without esophagitis Start: 02-08-2019 End: 02-12-[address] [facility] Start: 02-08-2019 End: 02-08-2019 Patient encounter procedure [facility] Work Phone: [facility] Preadmission Testing Comment on above: Preop testing (Prima ry Dx) Start: 01-11-2019 End: 01-11-2019 Office outpatient visit 15 minutes Ramsey Anaya Work Phone: [facility] Neurology Comment on above: Intractable headache , unspecified chronicity pattern, unspecified headache type Start: 01-09-2019 Patient encounter procedure [facility] Start: 01-09-2019 End: 01-09-2019 Office outpatient visit 25 minutes [facility] Work Phone[facility] Comment on above: Slipped Shanthi fundo plication (Primary Dx); Hiatal hernia with GERD without esophagitis Start: 12-11-2018 End: 12-11-[address] [facility] Start: 12-11-2018 End: 12-11-2018 Subsequent hospital visit by physician Crow Ramires Work Phone: [facility] End[facility] Comment on above: Heartburn; Gaseous regurgitation; Abdominal pain, epigastric; History of Shanthi fundoplication; Heartburn; Gaseous regurgitation; Abdominal pain, epigastric; History of Shanthi fundoplication; Slipped Shanthi fundoplication; Helicobacter pylori gastritis; Reflux esophagitis Start: 11-13-2018 End: 11-13-2018 Karin Calix [facility] Neurology Comment on above: Intractable headache , unspecified chronicity pattern, unspecified headache type Start: 11-07-2018 End: 11-07-2018 Patient encounter procedure [facility] Start: 11-07-2018 End: 11-07-2018 Office outpatient visit 25 minutes [facility] Work Phone: [facility] Comment on above: Heartburn (Primary D x); Gaseous regurgitation; Abdominal pain, epigastric; History of Shanthi fundoplication Start: 10-10-2018 End: 10-10-2018 Patient encounter procedure AVELINA HAINES [facility] Start: 10-10-2018 End: 10-10-2018 Patient encounter procedure Avelina Haines Work Phone: [facility] Per[facility] Comment on above: Gastroesophageal ref lux disease, esophagitis presence not specified; Slipped Shanthi fundoplication Start: 09-20-2018 Patient encounter procedure AVELINA HAIN[facility] Start: 09-19-2018 End: 09-19-2018 Patient encounter procedure HERACLIO GREEN [facility] Start: 09-19-2018 End: 09-19-2018 Office outpatient new 45 minutes Heraclio Green Work Phone: [facility] Comment on above: Gastroesophageal ref lux disease, esophagitis presence not specified (Primary Dx) Start: 09-11-2018 Patient encounter procedure AVELINA HAINES [facility] Start: 02-09-2018 End: 02-10-2018 Patient encounter Heraclio Carol Green Facility:[facility] Start: 02-02-2018 Patient encounter [facility] Start: 08-07-2017 Patient encounter [facility] Procedures Date Procedure Procedure Detail Performing Clinician Start: 11-07-2024 Dual energy X-ray absorptiometry Dr. Christiano Macedo MD Work Phone: Start: 11-07-2024 Screening mammography Kathi Macedo MD Work Phone: Start: 03-24-2023 Plain x-ray of pelvi s and lower extremity Start: 11-09-[address] hCristiano wei Work Phone: Start: 10-26-2021 Dual energy [...] Activity Detail Author Start: 11-09-2022 Patient discharge [facility] Start: 01-29-2021 End: 01-29-2021 Office Visit 01/29/2021 Office Visit Neurology Ramsey Anaya MD [address] [place] [address] [phone] [facility] Neurology Start: 02-20-2020 Pneumococcal vaccination PNEUMOCOCCAL VACCINE AGE 65+ (2 of 2 - PPSV23) [facility] Start: 01-14-2020 Influenza vaccination INFLUENZA VACCINE (#1) [facility] Start: 01-14-2020 Influenza vaccination given Sequential Influenza Vacci ne (#1) [facility] Start: 01-10-2020 End: 01-10-2020 Office Visit 01/10/2020 Office Visit Neurology Ramsey Anaya MD [address] [place] [address] [phone] [facility] Neu[facility] Start: 03-06-2019 End: 03-06-2019 Office Visit 03/06/2019 Office Visit Heartburn Crow Ramires MD [address] [place] [address] Medical Offices [address] [place] [address] [phone] [facility] Start: 02-18-2019 End: 02-18-2019 Hospital Encounter [facility] Per[facility] Comment on above: Slipped Shanthi fundoplication; Hiatal hernia with GERD without esophagitis LAPAROSCOPIC REDO HI ATAL HERNIA REPAIR WITH MESH AND REDO SHANTHI FUNDOPLICATION Start: 02-18-2019 End: 02-18-2019 Hospital Encounter [facility] Per[facility] Comment on above: Slipped Shanthi fundoplication; Hiatal hernia with GERD without esophagitis LAPAROSCOPIC REDO HI ATAL HERNIA REPAIR WITH MESH AND REDO SHANTHI FUNDOPLICATION Start: 02-14-2019 End: 02-14-2019 Office Visit 02/14/2019 Office Visit Heartburn Crow Ramires MD [address] [place] [address] [address] [facility] Start: 02-08-2019 End: 02-08-2019 Office Visit [facility] Preadmission Testing Start: 01-13-2019 Influenza vaccination INFLUENZA VACCINE (#1) [facility] Start: 01-13-2019 Influenza vaccination given [facility] Start: 01-09-2019 End: 01-09-2019 Office Visit 01/09/2019 Office Visit HeartCrow Meneses MD [address] [place] [address] [address] [facility] Start: 12-11-2018 End: 12-11-2018 Surgery 12/11/2018 Surgery Crow Ramires MD [address] [place] [address] [address] ESOPHAGOGASTRODUODENOSCOPY WITH ENDOFLIP AND BIOPSY [facility] Comment on above: ESOPHAGOGASTRODUODENOSCOPY WITH ENDOFLIP AND BIOPSY Start: 12-11-2018 End: 12-11-2018 Hospital Encounter [facility] Comment on above: Heartburn; Gaseous regurgitation; Abdominal pain, epigastric; History of Shanthi fundoplication ESOPHAGEAL MANOMETRY Start: 10-10-2018 Hospital Encounter [facility] Comment on above: ESOPHAGOGASTRODUODENOSCOPY Start: 2018 Pneumococcal vaccination [facility] Start: 09-06-2003 Administration of herpes zoster vaccine Zoster Vaccines (1 of 2) [facility] Start: 09-06-2003 Colonoscopy [facility] Start: 09-06-2003 Screening for malignant neoplasm of colon [facility] Start: 09-06-2003 Zoster vaccine hzv live for subcutaneous use ZOSTER (SHINGLES) VACCINE (1 of 2) [facility] Start: 1993 Fasting lipid profile LIPID SCREENING [facility] Start: 1993 Screening mammography MAMMOGRAM SCREENING DISCUSSION [facility] Start: 1974 Screening for malignant neoplasm of cervix [facility] Start: 1972 Third diphtheria, tetanus and acellular pertussis (DTaP) vaccination TDAP (ADULT) [facility] Start: 09-06-1971 Hepatitis C antibody, confirmatory test Hepatitis C Screening [facility] Start: 09-06-1971 Tetanus vaccination TETANUS [facility] Start: 1969 COVID-19 Vaccine (1 of 2) COVID-19 Vaccine (1 of 2) [facility] Start: 1965 Adolescent depression screening assessment Depression Screening (PHQ9) [facility] Start: 1956 History and physical examination, annual for health maintenance Wellness Visit [facility] Start: 1953 Fall risk assessment Falls Risk Assessment [facility] Start: 1953 Hepatitis C antibody, confirmatory test [facility] Start: 1953 Potassium [Moles/Vol] POTASSIUM [facility] Start: 1953 Protein mass conc Mammogram [facility] Start: 1953 Screening for malignant neoplasm of colon Colorectal Cancer Screening: Colonoscopy [facility] Start: 1953 Screening for osteoporosis [facility] Start: 1953 Screening mammography Mammogram [facility] Start: 1953 Tetanus vaccination [facility] 12 lead ECG ECG 12 Lead ECG Routine Preop testing Ordered: 02/08/2019 [facility] Comment on above: Ordered: 02/08/2019 Colonoscopy [facility] Patient referral [facility] Work Phone: Procedure on tissue specimen [facility] Comment on above: Once for 1 Occurrences starting 12/12/19 19, 1 completed Immunizations Immunization Date Immunization Notes Care Provider Kris osborn 03-06-2019 influenza virus vacc ine, unspecified formulation [facility] 02-19-2019 influenza, high dose seasonal, preservative-free [facility] 02-19-2019 pneumococcal conjuga te vaccine, 13 valent [facility] 02-19-2019 pneumococcal vaccine , unspecified formulation [facility] Payers Date Payer Category Payer Self-pay [id number] 2024 Unknown [id number] [facility] [id number] 2018 Unknown [id number] 2018 Unknown [id number] 1. [id number] 2018 Medicare xxxxxxxxxxx [id number] 2018 Medicare [id number] 2018 Medicare [id number] [id number] .[id number] 2018 Unknown 2016 Unknown xxxxxxxxxxxx 1. [id number] 2015 Unknown [id number] 1953 Unknown [id number] 2.16.8 40.1.260990.3.579.2.903 1953 Unknown [id number] 2.16.8 40.1.771084.3.579.2. 1953 Unknown [id number] 2.16.8 40.1.548930.3.579.2.3 1953 Unknown [id number] 2.16.8 40.1.185197.3.579.2.903 1953 Unknown [id number] 2.16.8 40.1.785970.3.579.2.903 1953 Unknown [id number] 2.16.8 40.1.635410.3.579.2.903 1953 Unknown [id number] 2.16.8 40.1.859567.3.579.2.903 1953 Unknown [id number] 2.16.8 40.1.627825.3.579.2.90 1953 Unknown [id number] 2.16.8 40.1.619867.3.579.2.903 1953 Unknown [id number] 2.16.8 40.1.200008.3.579.2.903 1953 Unknown [id number] 2.16.8 40.1.488716.3.579.2.903 1953 Unknown [id number] 2.16.8 40.1.732563.3.579.2.903 Unknown [id number] 2.16.8 40.1.703826.3.579.2.462 Unknown [id number] 2.16.8 40.1.765075.3.579.2.462 Unknown [id number] 2.16.8 40.1.013023.3.579.2.462 Unknown [id number] 2.16.8 40.1.224334.3.579.2.462 Unknown [id number] 2.16.8 40.1.207231.3.579.2.462 Social History Date Type Detail Facility Start: 09-19-2018 End: 11-09-2022 Tobacco smoking status NHIS Never smoker [facility] Start: 09-19-2018 History SDOH Alcohol Frequency 1 [facility] Sex Assigned At Not on file [facility] Start: 01-09-2019 End: 02-14-2019 Alcohol intake Lifetime non-drinker (finding) [facility] Start: 03-06-2019 End: 01-24-2020 Tobacco use and exposure Never used [facility] Start: 01-24-2020 Alcohol intake Current non-dr clam digger of alcohol (finding) [facility] Start: 01-11-2019 Alcohol intake No [facility] Start: 03-12-2019 End: 11-09-2022 Tobacco smoking status NHIS Unknown if ever smoked [facility] Start: 1955 Sex Assigned At Female [facility] NEGATED: Highlighted row [facility] Medical Equipment Procedure Code Equipment Code Equipment Origin al Text Equipment Identifier Dates Mesh 7 X 10cm Resorbable Phasix St - Sna [id number] Start: 02-18-2019 Tacker 5mm Singl e Use Absorbatack 30x W/30 Oleg Estevez [id number] Start: 02-18-2019 Goals Date Patient Goal Desired Activity /State Mental Status Date Assessment Result Facility 11-09-2022 Cognitive function Level Of Cons ciousness Awake;Alert;Appropriate;Follow s Commands [facility] Work Phone: Evaluation note Note Date & Type Note Facility Evaluation note No assessment information availa ble [facility] Work Phone: Evaluation note Note Date & Type Note Facility Evaluation note Diagnosis Onset Date Encounter for screening for malignant neoplasm of colon acute [facility] Work Phone: Reason for referral (narrative) Note Date & Type Note Facility Reason for referral (narrative) No reason for referral information available [facility] Work Phone: Summary Purpose Family History No Family History Records Found Relationship Condition Age at Onset Recorded Date/T gabo father Malignant neoplasm Unknown sister Hypertension Unknown Malignant neoplasm Unknown Diabetes mellitus Unknown Advance Directives No Advanced Directives Records FoundDocuments on File Type Date Recorded Patient Tallow Maker Expl anation Advance Directives and Livin g Will 10/10/2018 7:01 AM Documents on File Type Date Recorded Patient Tallow Maker Expl anation Advance Directives and Livin g Will 10/10/2018 7:01 AM Documents on File Type Date Recorded Patient Tallow Maker Expl anation Advance Directives and Livin g Will 02/08/2019 7:21 AM Documents on File Type Date Recorded Patient Tallow Maker Expl anation Advance Directives and Livin g Will 02/18/2019 7:51 AM Latest Code Status on File Code Status Date Activated Date Inactivated Comments Full Code 02/18/2019 12:23 PM Documents on File Type Date Recorded Patient Tallow Maker Expl anation Advance Directives and Livin g Will 02/18/2019 7:51 AM Latest Code Status on File Code Status Date Activated Date Inactivated Comments Full Code 02/18/2019 12:23 PM Documents on File Type Date Recorded Patient Tallow Maker Expl anation Advance Directives and Livin g Will 12/11/2018 7:01 AM Documents on File Type Date Recorded Patient Tallow Maker Expl anation Advance Directives and Livin g Will 12/11/2018 7:01 AM Advance Directive Response Recorded Date/ Time Living Will No March 12 10:17am Power of Software Qa Manager No March 12, 2019 10:17am Advance Directive Response Recorded Date/ Time Living Will No March 12 9:17am Power of Software Qa Manager No March 12, 2019 9:17am Advance Directive Response Recorded Date/ Time Living Will No November 04, 2022 2:27pm Power of Software Qa Manager No November 04 2:27pm Advance Directive Response Recorded Date/ Time Living Will No November 04, 2022 1:27pm Power of Software Qa Manager No November 04 1:27pm Reason for Referral Status Reason Specialty Diagnoses / Procedures Referred By Contact Referred To Contact Closed General Surgery Diagnoses Gastroesophageal reflux disease, esophagitis presence not specified Heraclio Green, [address] [place] [address] Avelina Haines MD [address] [address] History of Present Illness * Avelina Haines [...] Social History Occupational History 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 Diff Dx Esophagitis, gastritis, slipped Shanhti, etc. Doubt malignancy. Chronic conditions HTN, Hyperlipidemia [...] obtained Yes Questions answered Yes X Surgery [facility] ORDERS / F/U Schedule EGD ICD Gastroesophageal reflux disease, esophagitis presence not specified [K21.9] Thank you for the privilege of allowing me to participate in the care of this patient Layout PNSHETH documented in this encounter* Crow Ramires MD - 11/07/2018 2:35 PM EDT [facility] [address] (11) [facility] [address] [facility] [phone] Maria Elena Alan is a 63 y.o. [...] Shanthi and she was referred to the [facility]. She is currently not on any [...] SURGERY [address] Kathi Pandya [place] Ear piercings EGD N/A 10/10/2018 Procedure: ESOPHAGOGASTRODUODENOSCOPY; Surgeon: Avelina Haines MD; [place] [facility]; Service: General Surgery ESOPHAGOGASTRODUODENOSCOPY 12/04/2014 Slipped [...] PM EDT [facility] [address] (11) [facility] [address] [facility] [phone] Patient Name: Maria Elena Alan Age: [...] Shanthi and she was referred to the [facility]. She is currently not on any [...] Procedure: ESOPHAGOGASTRODUODENOSCOPY; Surgeon: Avelina Haines MD; Location: [facility]; Service: General Surgery ESOPHAGOGASTRODUODENOSCOPY 12/04/2014 Slipped Shanthi.....Dr [...] AM EDT [facility] [address] (11) [facility] [address] [facility] [id number] Maria Elena Alan is a 63 y.o. [...] SURGERY [address] Kathi Pandya [place] Ear piercings EGD N/A 10/10/2018 Procedure: ESOPHAGOGASTRODUODENOSCOPY; Surgeon: Avelina Haines MD; [place] [facility]; Service: General Surgery EGD N/A 12/11/2018 Procedure: ESOPHAGOGASTRODUODENOSCOPY WITH ENDOFLIP AND BIOPSY; Surgeon: Crow Ramires MD; Location: [facility]; Service: General Surgery ESOPHAGEAL MANOMETRY N/A 12/11/2018 Procedure: ESOPHAGEAL MANOMETRY; Surgeon: Crow Ramires MD; Location: [facility]; Service: General Surgery ESOPHAGOGASTRODUODENOSCOPY 12/04/2014 Slipped Shanthi.....Dr [...] Wt 48.9 kg (107 lb 11.2 oz) [id number]% BMI 21.75 kg/m Body mass index is [...] Weinstein, ROSALBA - 02/19/2019 6:32 AM EDT [facility] [place] PATIENT: Maria Elena Alan DATE / TIME: [...] Weinstein CNP - 03/06/2019 10:42 AM EDT [facility] PATIENT: Maria Elena Alan DATE / [...] and Shanthi fundoplication PLAN: 1. Diet per [facility] protocol 2. Continue lifting restrictions 3. [place] removed 4. Follow up PRN documented in [...] file Gets together: Not on file Attends mandaen service: Not on file Active member of [...] which half or more was dedicated to taxs-me-ylkb counseling of the problems/issues and coordination of [...] which half or more was dedicated to wxoc-qn-ufft counseling of the problems/issues and coordination of all care. documented in this encounter* Crow Ramires MD - 01/09/2019 11:44 AM EDT [facility] [address] (11) [facility] [address] [facility] [id number] Maria Elena Alan is a 63 y.o. [...] SURGERY [address] Kathi Pandya [place] Ear piercings EGD N/A 10/10/2018 Procedure: ESOPHAGOGASTRODUODENOSCOPY; Surgeon: Avelina Haines MD; [place] [facility]; Service: General Surgery EGD N/A 12/11/2018 Procedure: ESOPHAGOGASTRODUODENOSCOPY WITH ENDOFLIP AND BIOPSY; Surgeon: Crow Ramires MD; Location: [facility]; Service: General Surgery ESOPHAGEAL MANOMETRY N/A 12/11/2018 Procedure: ESOPHAGEAL MANOMETRY; Surgeon: Crow Ramires MD; Location: [facility]; Service: General Surgery ESOPHAGOGASTRODUODENOSCOPY 12/04/2014 Slipped Shanthi.....Dr [...] insight intact. Normal Gait. Assessment: 1. Slipped Sahnthi fundoplication 2. Hiatal hernia with GERD without [...] 7-10 days. Follow-up Call the office at [phone] to make appointment to be seen in: [...] the day after the test, use an myhb-roq-qyhpgtz spray to numb your throat. Follow-up care [...] Log into your personal health record on [email or web address] and enter J454 in the Education box to learn more about Upper GI Endoscopy: What to Expect at Home. Current as of: March 21, 2018 Content Version: 12.0 0133-5596 Healthwise, [employer]. Care instructions adapted under license by your healthcare professional. If you have questions about a medical condition or this instruction, always ask your healthcare professional. [employer] disclaims any warranty or liability for your [...] to control the problem with antacids or awpz-jtg-zhwzvcw medicine. Changing your diet, losing weight, and [...] with your medicine. Your doctor may recommend wnux-dre-ntzotrj medicine. For mild or occasional indigestion, antacids, such as Tums, Gaviscon, Mylanta, or Maalox, may help. Your doctor also may recommend guyq-uda-savcxko acid reducers, such as Pepcid AC, Tagamet [...] Log into your personal health record on [email or web address]://INFUSD.Amiigo and enter T927 in the Education box to learn more about Gastroesophageal Reflux Disease (GERD): Care Instructions. Current as of: March 21, 2018 Content Version: 12.0 1778-1743 [employer]. Care instructions adapted under license by your healthcare professional. If you have questions about a medical condition or this instruction, always ask your healthcare professional. [employer] disclaims any warranty or liability for your [...] Alan Home Medication Instructions Prior to Surgery AMRIK:[id number] Printed on:02/08/19821 Medication Information Take last dose [...] medications that contain aspirin, such as [place], Pepto-Bismol, Anacin), antiinflammatory medications such as Advil, Motrin, Ibuprofen, Naproxen, Aleve, [place], Pepto-Bismol, Anacin, Diclofenac, Voltaren, Daypro, Etodolac, Ketoprofen, Piroxicam, Relafen, Nabumetone, etc. Also disc ontinue Vitamin C, Vitamin E, [place]-3 Fatty Acid, Fish Oil or Lovaza, and [...] them to the hospital. Patient Instructions for [facility]: Prior to surgery: Surgeon's office will contact you with the scheduled time of your surgery. You may use the [employer] parking available at the Main Entrance One [...] any makeup or lotions. Remove all nail swazi for surgeries involving extremities. Please remember to bring both your insurance card and a photo ID with you on the day of surgery. After your surgery: If you are having outpatient surgery - you must have a licensed public transit trolley driver to take you home. The expectation is that this public transit trolley driver will remain at the hospital for [...] section and content) DATE CREATED AUTHOR 03/02/2018 [facility] DATE CREATED AUTHOR AUTHOR'S ORGANIZ ATION 03/12/2018 [facility] DATE CREATED AUTHOR AUTHOR'S ORGANIZ ATION 03/06/2019 [facility] DATE CREATED AUTHOR AUTHOR'S ORGANIZ ATION 03/06/2019 [facility] DATE CREATED AUTHOR AUTHOR'S ORGANIZ ATION 11/14/2024 [facility] Reason for Visit (unrecogniz ed section and content) Reason Comments Gastroesophageal Reflux Status Reason Specialty Diagnoses / Procedures Referred By Contact Referred To Contact Closed General Surgery Diagnoses Gastroesophageal reflux disease, esophagitis presence not specified Heraclio Green, DO [address] [place] [address] Avelina Haines MD [address] [place] [address] [address] Status Reason Specialty Diagnoses / Procedures Referre d By Contact Referred To Contact Diagnoses Gastroesophageal reflux disease, esophagitis presence not specified Gastroesophageal reflux disease, esophagitis presence not specified [K21.9] Avelina Haines MD [address] [place] [address] Reason Comments Consult chest pain, heartbur n, regurgitation, previous Shanthi fundoplication with redo Reason Comments Medication Refill Reason Comments Follow-up slipped Shanthi fundo plication Status Reason Specialty Diagnoses / Procedures Re ferred By Contact Referred To Contact Diagnoses Slipped Shanthi fundoplication Hiatal hernia with GERD without esophagitis Slipped Shanthi fundoplication [K91.89] Hiatal hernia with GERD without esophagitis [K44.9, K21.9] Crow Ramires MD [address] [place] [address] Reason Comments Follow-up Redo hiatal hernia r epair with Shanthi fundoplication Reason Comments Follow-up Headache Status Reason Specialty Diagnoses / Procedures Referre d By Contact Referred To Contact Diagnoses Heartburn Heartburn [R12] Crow Ramires MD [address] [place] [address] Reason Comments Follow-up EGD, turpin, manometr y, EndoFlip Avelina Haines MD - 10/10/2018 7:56 AM Avelina Cornejo MD - 09/19/2018 10:35 AM Crow Angela MD - 02/18/2019 9:20 AM Crow Angela MD - 02/14/2019 8:23 AM EDT H&P Notes (unrecognized sect ion and content) INTERVAL HISTORY AND PHYSICAL Patient Name: Maria Elena Alan Admit Date: [id number] MR #: [id number] : 1955 The H&P has been reviewed [...] SURGERY [address] Kathi Pandya [place] Ear piercings ESOPHAGOGASTRODUODENOSCOPY 12/04/2014 Slipped Shanthi.....Dr Haines [...] Social History Occupational History 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 I concur with the findings of the H&P. There are no significant changes. It is appropriate to proceed with the planned procedure. Crow Ramires MD 02/18/2019 9:20 AM [facility] [address] (11) [facility] [address] [facility] [phone] Maria Elena Alan is a 63 y.o. [...] Procedure: ESOPHAGOGASTRODUODENOSCOPY; Surgeon: Avelina Haines MD; [place] [facility]; Service: General Surgery EGD N/A 12/11/2018 [...] Elena Alan Admit Date: [id number] MR #: [id number] : 1955 The H&P has been reviewed and the patient has been examined. I concur with the findings of the H&P. There are no significant changes. It is appropriate to proceed with the planned procedure. Crow Ramires MD 12/11/2018 9:49 AM Office Visit 11/07/2018 [facility] Crow Ramires MD General Surgery Heartburn +3 more Dx Consult Reason for Visit Diagnoses Codes Heartburn - Primary ICD-10-CM: R12 ICD-9-CM: 787.1 Gaseous regurgitation ICD-10-CM: R14.2 ICD-9-CM: 787.3 Abdominal pain, epigastric ICD-10-CM: R10.13 ICD-9-CM: 789.06 History of Shanthi fundoplication ICD-10-CM: Z98.890 ICD-9-CM: V15.29 Progress Notes Expand All Collapse All [facility] [address] (11) [facility] [address] [facility] [id number] Maria Elena Alan is a 63 y.o. [...] Shanthi and she was referred to the [facility]. She is currently not on any [...] Procedure: ESOPHAGOGASTRODUODENOSCOPY; Surgeon: Avelina Haines MD; [place] [facility]; Service: General Surgery ESOPHAGOGASTRODUODENOSCOPY 12/04/2014 Slipped [...] Tobacco Level of Service Level of Service [place] OFFICE OUTPATIENT VISIT 25 MINUTES [38744] LOS History Other Charges Charge ID Procedure Code [id number] Description: [place] OFFICE OUTPATIENT VISIT 25 MINUTES Qty.: 1 Fund Manager User: Crow Ramires MD Diagnosis: Heartburn; Eructation; [...] VS monitoring and Sedation are done by anesthesia/GAS LEAK INSPECTOR HELPER/CAA Pt is escorted by Lj. Pt states [...] N/A Informed Consent Yes Location Surgery Center [facility] Referring Dr. Heraclio Green Surgeon Avelina Haines MD Pre-op Dx GERD X 3 months, previous Shanthi in 2002, redo Shanthi in 2014 Procedure EGD Post-op Dx Slipped Shanthi Defer to pathology N/A Anesthesia MAC and viscous Lidocaine PO Computing Machine Operator None Positioning Left lateral decubitus Details of [...] Post-operative Diagnosis: same *Gastrotomy Surgeon: Crow Ramires Computing Machine Operator: Javi Weinstein CNP Procedure and Anesthesia: Procedure(s) and Anesthesia Type: * LAPAROSCOPIC REDO HIATAL HERNIA REPAIR WITH MESH AND REDO SHANTHI FUNDOPLICATION - General *Partial gastrectomy CPT Code: 28048, 47599 EBL 10 ml Complications:None Drains: None Dispo: [...] treated with partial fundectomy using a 60 [place] stapler. The specimen was removed from the [...] with interrupted 0 Ethibond suture in a crovhu-ez-egknj fashion. The Endoflip balloon was reinflated to [...] /mmHg and minimum diameter 13.7 mm. The [place] was removed from around the esophagus. The [...] Alan Home Medication Instructions Prior to Surgery AMRIK:[id number] Printed on:02/08/19 0809 Medication Information Take last [...] medications that contain aspirin, such as [place], Pepto-Bismol, Anacin), antiinflammatory medications such as Advil, Motrin, Ibuprofen, Naproxen, Aleve, [place], Pepto-Bismol, Anacin, Diclofenac, Voltaren, Daypro, Etodolac, Ketoprofen, Piroxicam, Relafen, Nabumetone, etc. Also discontinue Vitamin C, Vitamin E, [place]-3 Fatty Acid, Fish Oil or Lovaza, and [...] them to the hospital. Patient Instructions for [facility]: Prior to surgery: Surgeon's office will contact you with the scheduled time of your surgery. You may use the [employer] parking available at the Main Entrance One [...] any makeup or lotions. Remove all nail swazi for surgeries involving extremities. Please remember to bring both your insurance card and a photo ID with you on the day of surgery. After your surgery: If you are having outpatient surgery - you must have a licensed public transit trolley driver to take you home. The expectation is that this public transit trolley driver will remain at the hospital for [...] Christiano Macedo MD Primary Care Provider Active [facility] Attending Provider Active Team Status: Active Member [...] Dates Dr. Christian[facility] Macedo [facility], Attending Provider, Referring Provider Active [...] BE BASED ON THE PRIMARY CLINICAL RECORDS. [facility] [employer] provides no warranty or guarantee of the accuracy or completeness of information in this document.
== END | disposition home or self-care (01) ==
LOC: OPUS 08:17
PROVIDERS: PCP Family Medicine; Referring Provider Family Medicine; Visit Provider Family Medicine
DX: N64.53 Retraction of nipple (principal)
CPT/HCPCS: 76642

== ENCOUNTER → 2025-04-18 | Outpatient (CLI) | payer MEDICARE, OTHER, SELFPAY ==
[2025-04-18 13:10] LABS: AST(SGOT) 22 U/L (<=31); Alanine Aminotransfer ALT/SGPT 12 U/L (<=34); Albumin, Serum 4.4 g/dL (3.4-4.8); Alkaline Phosphatase 48 U/L (35-104); Anion Gap 11 (5-15); BUN 14 mg/dL (4-19); BUN/Creat Ratio 15.8 RATIO (10-20); Calcium,Total 9.8 mg/dL (7.6-11.0); Carbon Dioxide 24.9 mmol/L (21.0-32.0); Chloride 106 mmol/L (98-108); Cholesterol 192 mg/dL (<=200); Globulin 2.4 g/dL (2.2-4.2); Glucose 93 mg/dL (70-99); Low Density Lipoprotein Calc. 90 mg/dL; Potassium 3.9 mmol/L (3.3-5.1); Triglycerides 70 mg/dL; Very Low Density Lipoprotein 14 mg/dL (5-40); cholesterol:hdl ratio screen 2.16
== END | disposition home or self-care (01) ==
LOC: MFPLAB 09:08
PROVIDERS: PCP Family Medicine; Visit Provider Family Medicine
DX: I10 Essential (primary) hypertension (principal); E78.5 Hyperlipidemia, unspecified
CPT/HCPCS: 36415; 80053; 80061

== ENCOUNTER → 2025-05-12 | Outpatient (CLI) | payer MEDICARE, OTHER, SELFPAY ==
[2025-05-12 12:08] LABS: Hematocrit 34.5 % (37-47); Hemoglobin 11.8 g/dL (12.0-15.0); Mean Corp Hgb Conc 34.2 g/dL (32-36); Mean Corpuscular Volume 92.0 fL (81-99); Mean Platelet Vol. 9.9 fl (6.2-12.0); Platelet Count 291 K/mm3 (150-450); RBC Distribution Width CV 13.1 % (11.6-14.6); RBC Distribution Width SD 44.2 fl (35.1-43.9); Red Blood Count 3.75 M/mm3 (4.2-5.4); White Blood Count 5.5 K/mm3 (4.4-11.0)
[2025-05-12 12:29] LABS: AST(SGOT) 24 U/L (<=31); Alanine Aminotransfer ALT/SGPT 13 U/L (<=34); Albumin, Serum 4.5 g/dL (3.4-4.8); Alkaline Phosphatase 58 U/L (35-104); Bilirubin, Direct 0.15 mg/dL (0.00-0.30); Globulin 2.5 g/dL (2.2-4.2); Lipase 21 U/L (13-75)
[2025-05-13 15:08] LABS: H. PYLORI STOOL AG Positive (Negative)
== END | disposition home or self-care (01) ==
LOC: MTLAB 09:20
PROVIDERS: PCP Family Medicine; Referring Provider Internal Medicine Gastroenterology; Visit Provider Internal Medicine Gastroenterology
DX: R10.9 Unspecified abdominal pain (principal); R11.2 Nausea with vomiting, unspecified
CPT/HCPCS: 36415; 80076; 83690; 85027; 87338